=== PATIENT | male | born 1950 | race Caucasian/White ===

== ENCOUNTER → 2020-07-09 12:56 | Outpatient (REF) | payer MEDICARE, OTHER, SELFPAY ==
--- NOTE | 2020-07-09 13:05 | CA_ITS ---
Transthoracic Echocardiogram Patient (Last, First, Middle): Abner Solorio, Gender: Male Date of : 1950 Age: 69 Procedure Date: 07/09/2020 Procedure Type: Transthoracic Echocardiogram Location: OP Height: 180.34 cm Weight: 83.92 kg BSA: 2.04 m2 Heart Rate: bpm BP: 126 / 58 mmHg Radio Station Manager: Referring MD: Keith Contreras MD Symptoms: ATRIAL FLUTTER, PAROXYSMAL Study Quality: Good ECG Rhythm: Sinus Conclusions: - The left ventricular systolic function is normal. The visually estimated ejection fraction is between 60-65%. - There is mild calcification of the aortic valve. - There is mild aortic valve regurgitation. Findings Left Ventricle Normal left ventricular cavity size. There is mildly increased left ventricular wall thickness. The left ventricular systolic function is normal. The visually estimated ejection fraction is between 60-65%. There is no evidence of regional wall motion abnormalities. Diastolic function is normal for age. Right Ventricle Normal right ventricular cavity size and systolic function. Atria The left atrium is normal in size. The right atrium is normal in size. Aortic Valve There is mild calcification of the aortic valve. There is no aortic valve stenosis. There is mild aortic valve regurgitation. Mitral Valve The mitral valve appears normal. There is trace mitral valve regurgitation. There is no mitral valve stenosis. Pulmonic Valve The pulmonic valve was not well visualized. Tricuspid Valve Normal tricuspid valve structure. There is trace tricuspid valve regurgitation. The pulmonary artery systolic pressure is normal. Great Vessels The aortic annulus, sinuses of valsalva, and asc aorta are normal in size. Venous The inferior vena cava is normal in size and collapses greater than 50% with inspiration. Pericardium/Pleural There is no evidence of pericardial effusion. Prior Study Comparison No significant change compared to prior study dated: 02/21/2019. Measurements 2D Linear Measurements IVSd: 1.28 0.6-0.9/0.6-1.0 cm LVIDd: 4.96 3.9-5.3/4.2-5.9 cm LVIDd Index: 2.43 2.4-3.2/2.2-3.1 cm/m2 LVIDs: 3.31 2.0-3.6 cm LVPWd: 1.21 0.7-1.1 cm Ao Root: 3.70 2.1-3.5 cm LA Diam: 4.30 2.7-3.8/3.0-4.0 cm LAIDs Index: 2.11 1.5-2.3 cm/m2 LV Mass: 303.13 67-162/88-224 g LV Mass Index: 148.59 43-95/49-115 g/m2 LVOT Diam: 2.30 3.0+(-)1.3 cm Mitral Valve MV Pk E: 0.69 MV PK A: 0.87 MV Decel Time: 253.00 E/A: 0.80 E'Lateral: 7.45 E'Medial: 7.45 E/E' Med: 9.30 E/E' Lat: 9.30 PHT: 74.00 MVA PHT: 2.97 Decel Calloway: 2.74 Aortic Valve AoV Pk Vahe: 1.50 AoV Mn Vahe: 1.08 AoV VTI: 0.36 AoV Pk Grad: 9.00 Aov Mn Grad: 5.00 LISA Cont.VTI: 2.62 LVOT LVOT Pk Vahe: 0.96 LVOT Mn Vahe: 0.57 LVOT VTI: 0.23 LVOT Pk Grad: 4.00 LVOT Mn Grad: 2.00 LVOT Diam: 2.30 LVOT Area: 4.15 Diastolic Function MV Pk E: 0.69 MV Pk A: 0.87 E/A: 0.80 E'Medial: 7.45 E/E' Med: 9.30 E' Laterial: 7.45 E/E' Lat: 9.30 Tricuspid Valve TR Pk Vahe: 1.82 TR Pk Grad: 13.00 RA Press: 3.00 RVSP: 16.00 Great Vessels Aorta Ao Root-2D: 3.70 2.0-3.7 cm Pulmonary Valve PV Pk Vahe: 0.98 Peak PV Grad: 4.00 Updated in Other Vendor System with Status of Final Keith Contreras MD electronically signed on 07/10/2020 11:35:00 AM with status of Final
--- NOTE | 2020-07-09 13:06 | ECG_ITS ---
Hook-up date: 2020-07-09 13:57:00 Duration: 41:13:00 Test Indications: AFLUTTER Medications: 21168 QRS complexes 133 Ventricular ectopics which represent <1 % of total QRS comp. 20 Supraventricular ectopics which represent <1 % of total QRS comp. * Paced QRS complexs which represent % of total QRS comp. VENTRICULAR ECTOPY 133 Isolated 0 Bigeminal Cycles 0 Couplets 0 Runs 0 Beats in Runs * Beats LONGEST at * BPM at :: -- * Beats FASTEST at * BPM at :: -- SUPRAVENTRICULAR ECTOPY 20 Isolated 0 Couplets 0 Runs 0 Beats in Runs * Beats LONGEST at * BPM at :: -- * Beats FASTEST at * BPM at :: -- HEART RATES 48 MIN at 02:32:57 2020-07-10 61 AVG 120 MAX at 10:54:32 2020-07-10 LONGEST RR 1.3520 secs at 02:29:26 2020-07-10 S-T LEVELS Channel 1 - 128 mm at 13:57:00 2020-07-09 - 128 mm at 13:57:00 2020-07-09 Channel 2 - 128 mm at 13:57:00 2020-07-09 - 128 mm at 13:57:00 2020-07-09 Channel 3 - 128 mm at 03:31:61 -- - 128 mm at 03:31:61 Underlying rhythm is sinus; Average ventricular rate 61/min; range 48-120/min; Rare PACs/PVCs; No evidence of atrial flutter; Patient did not report any symptoms in the diary Referred By: Thomas Ibrahim Overread By: THOMAS IBRAHIM
== END ==
LOC: HO.CARD 12:56
PROVIDERS: PCP Internal Medicine; Visit Provider Internal Medicine
DX: I48.92 Unspecified atrial flutter (principal); Z98.890 Other specified postprocedural states
CPT/HCPCS: 93225; 93226; 93306

== ENCOUNTER 2020-07-25 07:53 | Outpatient (REF) | payer MEDICARE, OTHER, SELFPAY ==
[2020-07-25 09:03] LABS: MANUAL DIFF FLAG NO
[2020-07-25 09:08] LABS: Basophils Absolute Auto 0.1 X10*3/uL (0.0-0.2); Basophils Percent Auto 0.8 % (0-2); Eosinophils Absolute Auto 0.2 X10*3/uL (0.0-0.4); Eosinophils Percent Auto 2.6 % (0-4); Hemoglobin 15.8 g/dl (14.0-18.0); Imm Gran Abs Auto 0.01 X10*3/uL (0.00-0.03); Imm Gran Pct Auto 0.2 % (0.0-0.4); Lymphocytes Absolute Auto 1.7 X10*3/uL (1.2-4.9); Lymphocytes Percent Auto 27.8 % (20-40); Mean Corpuscular HGB Conc 34.3 g/dl (31.0-36.0); Mean Corpuscular Hemoglobin 31.9 pg (27.0-33.0); Mean Corpuscular Volume 92.9 fL (80-98); Mean Platelet Volume 9.2 fL (9.4-12.4); Monocytes Absolute Auto 0.6 X10*3/uL (0.1-1.2); Monocytes Percent Auto 8.8 % (2-11); Neutrophils Absolute Auto 3.7 X10*3/uL (2.0-8.3); Neutrophils Percent Auto 59.8 % (45-73); Platelet Count 150 X10*3/uL (160-400); Red Blood Count 4.95 X10*6/uL (4.60-5.80); Red Cell Distribution Width 12.1 % (11.0-16.0); White Blood Count 6.2 X10*3/uL (4.8-10.8)
[2020-07-25 09:36] LABS: Alanine Aminotransferase 22 U/L (0-40); Albumin Level 4.2 g/dL (3.5-5.0); Alkaline Phosphatase 53 U/L (39-117); Anion Gap 12 (12-20); Aspartate Amino Transferase 20 U/L (5-37); Bilirubin Total 1.1 mg/dL (0.0-1.0); Blood Urea Nitrogen 16 mg/dL (9-16); Carbon Dioxide 27 mmol/L (22-29); Chloride 101 mmol/L (96-108); Cholesterol 131 mg/dL; Estimated Glomerular Filt Rate > 60; Glucose Fasting 131 mg/dL (60-99); HDL Cholesterol 42 mg/dL; LDL Cholesterol Calculated 74 mg/dl; Potassium 4.3 mmol/l (3.3-5.1); Sodium 136 mmol/L (135-145); Total Protein 6.6 g/dL (6.5-8.0); Triglycerides 78 mg/dL
[2020-07-25 09:49] LABS: PSA,Total (Free>4and<10) 0.26 ng/mL (0.00-4.00)
[2020-07-25 09:51] LABS: T4 Thyroxine 7.2 ug/dL (4.5-12.0); Thyroid Stimulating Hormone 6.72 uIU/mL (0.32-4.0)
[2020-07-25 11:02] LABS: Folate 13.7 ng/mL (> or = 4.0); Vitamin B12 456 pg/mL (200-900)
[2020-07-25 11:31] LABS: Creatinine Urine 53.68 mg/dL; Microalbum/Creatinine Ratio Ur 150.8 ug/mg cr
== END 2020-07-25 07:54 | disposition home or self-care (01) ==
LOC: HO.LAB 07:53
PROVIDERS: PCP Internal Medicine; Visit Provider Internal Medicine
DX: E11.9 Type 2 diabetes mellitus without complications (principal); I10 Essential (primary) hypertension; E78.00 Pure hypercholesterolemia, unspecified; E03.9 Hypothyroidism, unspecified; I48.91 Unspecified atrial fibrillation; G47.33 Obstructive sleep apnea (adult) (pediatric)
CPT/HCPCS: 36415; 80053; 80061; 82043; 82607; 82746; 84153; 84436; 84443; 85025

== ENCOUNTER → 2020-08-09 09:34 | Outpatient (BNVA) | payer MEDICARE, OTHER, SELFPAY | PROVIDERS: PCP Internal Medicine; Referring Provider Internal Medicine; Visit Provider Internal Medicine | DX: I48.92 Unspecified atrial flutter (principal); I10 Essential (primary) hypertension; E11.8 Type 2 diabetes mellitus with unspecified complications; E78.5 Hyperlipidemia, unspecified; Z51.81 Encounter for therapeutic drug level monitoring; Z79.01 Long term (current) use of anticoagulants; Z79.899 Other long term (current) drug therapy | CPT/HCPCS: 99212; Q3014 ==

== ENCOUNTER 2020-12-19 07:28 | Outpatient (REF) | payer MEDICARE, OTHER, SELFPAY ==
[2020-12-19 08:39] LABS: Estimated Average Glucose 131 mg/dL; Hemoglobin A1c % 6.2 %
[2020-12-19 09:01] LABS: Alanine Aminotransferase 21 U/L (0-40); Albumin Level 4.2 g/dL (3.5-5.0); Alkaline Phosphatase 51 U/L (39-117); Anion Gap 14 (12-20); Aspartate Amino Transferase 20 U/L (5-37); Bilirubin Total 0.8 mg/dL (0.0-1.0); Blood Urea Nitrogen 18 mg/dL (9-16); Calcium 9.1 mg/dL (8.4-10.2); Carbon Dioxide 26 mmol/L (22-29); Chloride 104 mmol/L (96-108); Estimated Glomerular Filt Rate > 60; Glucose Random 134 mg/dL (60-115); Potassium 4.5 mmol/L (3.3-5.1); Sodium 139 mmol/L (135-145); Total Protein 6.4 g/dL (6.5-8.0)
[2020-12-19 09:12] LABS: Free T4 (Free Thyroxine) 1.26 ng/dL (0.71-1.85)
== END 2020-12-19 07:29 | disposition home or self-care (01) ==
LOC: HO.LAB 07:28
PROVIDERS: PCP Internal Medicine; Visit Provider Internal Medicine
DX: E11.65 Type 2 diabetes mellitus with hyperglycemia (principal); I10 Essential (primary) hypertension; E03.9 Hypothyroidism, unspecified
CPT/HCPCS: 36415; 80053; 83036; 84439; 84443

== ENCOUNTER → 2021-02-12 08:38 | Outpatient (BNVA) | payer MEDICARE, OTHER, SELFPAY | PROVIDERS: PCP Internal Medicine; Visit Provider Internal Medicine | DX: I48.92 Unspecified atrial flutter (principal); I10 Essential (primary) hypertension; E11.8 Type 2 diabetes mellitus with unspecified complications; Z51.81 Encounter for therapeutic drug level monitoring; Z79.899 Other long term (current) drug therapy; Z79.01 Long term (current) use of anticoagulants | CPT/HCPCS: 93005; 99212 ==

== ENCOUNTER 2021-07-31 07:28 | Outpatient (REF) | payer MEDICARE, OTHER, SELFPAY ==
[2021-07-31 07:40] LABS: MANUAL DIFF FLAG NO
[2021-07-31 08:02] LABS: Basophils Absolute Auto 0.1 X10*3/uL (0.0-0.2); Eosinophils Absolute Auto 0.1 X10*3/uL (0.0-0.4); Eosinophils Percent Auto 1.9 % (0-4); Hematocrit 45.1 % (42.0-52.0); Hemoglobin 15.7 g/dl (14.0-18.0); Imm Gran Abs Auto 0.01 X10*3/uL (0.00-0.03); Imm Gran Pct Auto 0.2 % (0.0-0.4); Lymphocytes Absolute Auto 1.9 X10*3/uL (1.2-4.9); Lymphocytes Percent Auto 30.5 % (20-40); Mean Corpuscular HGB Conc 34.8 g/dl (31.0-36.0); Mean Corpuscular Hemoglobin 32.6 pg (27.0-33.0); Mean Corpuscular Volume 93.6 fL (80.0-98.0); Mean Platelet Volume 8.8 fL (9.4-12.4); Monocytes Absolute Auto 0.7 X10*3/uL (0.1-1.2); Monocytes Percent Auto 10.9 % (2-11); Neutrophils Absolute Auto 3.5 x10*3/uL (2.0-8.3); Neutrophils Percent Auto 55.5 % (45-73); Platelet Count 155 X10*3/uL (160-400); Red Blood Count 4.82 X10*6/uL (4.60-5.80); Red Cell Distribution Width 12.3 % (11.0-16.0); White Blood Count 6.3 X10*3/uL (4.8-10.8)
[2021-07-31 08:14] LABS: Estimated Average Glucose 128 mg/dL; Hemoglobin A1c % 6.1 %
[2021-07-31 08:31] LABS: Alanine Aminotransferase 17 U/L (0-40); Albumin Level 4.2 g/dL (3.5-5.0); Alkaline Phosphatase 52 U/L (39-117); Anion Gap 9 (12-20); Aspartate Amino Transferase 17 U/L (5-37); Bilirubin Total 0.9 mg/dL (0.0-1.0); Blood Urea Nitrogen 16 mg/dL (9-16); Calcium 9.6 mg/dL (8.4-10.2); Carbon Dioxide 29 mmol/L (22-29); Chloride 105 mmol/L (96-108); Cholesterol 127 mg/dL; Estimated Glomerular Filt Rate > 60; Glucose Random 135 mg/dL (60-115); HDL Cholesterol 43 mg/dL; LDL Cholesterol Calculated 70 mg/dl; Potassium 4.3 mmol/L (3.3-5.1); Sodium 139 mmol/L (135-145); Total Protein 6.6 g/dL (6.5-8.0); Triglycerides 72 mg/dL
[2021-07-31 08:48] LABS: Free T4 (Free Thyroxine) 1.16 ng/dL (0.71-1.85); Thyroid Stimulating Hormone 5.49 uIU/mL (0.32-4.0)
[2021-07-31 08:59] LABS: Creatinine Urine 58.98 mg/dL; Microalbum/Creatinine Ratio Ur 110.2 ug/mg cr
[2021-07-31 08:59] LABS: Folate 17.2 ng/mL (> or = 4.0); Vitamin B12 402 pg/mL (200-900)
== END 2021-07-31 07:29 | disposition home or self-care (01) ==
LOC: HO.LAB 07:28
PROVIDERS: PCP Internal Medicine; Visit Provider Internal Medicine
DX: E11.65 Type 2 diabetes mellitus with hyperglycemia (principal); E78.00 Pure hypercholesterolemia, unspecified; I48.92 Unspecified atrial flutter; I10 Essential (primary) hypertension; Z79.899 Other long term (current) drug therapy; Z79.84 Long term (current) use of oral hypoglycemic drugs; Z51.81 Encounter for therapeutic drug level monitoring
CPT/HCPCS: 36415; 80053; 80061; 82043; 82607; 82746; 83036; 84439; 84443; 85025; 93005; 99212

== ENCOUNTER 2022-01-22 07:05 | Outpatient (REF) | payer MEDICARE, OTHER, SELFPAY ==
[2022-01-22 08:58] LABS: Free T4 (Free Thyroxine) 1.27 ng/dL (0.71-1.85); Thyroid Stimulating Hormone 2.18 uIU/mL (0.32-4.0)
[2022-01-22 09:07] LABS: Creatinine Urine 72.33 mg/dL
== END 2022-01-22 07:06 | disposition home or self-care (01) ==
LOC: HO.LAB 07:05
PROVIDERS: PCP Internal Medicine; Visit Provider Internal Medicine
DX: E03.9 Hypothyroidism, unspecified (principal); E11.65 Type 2 diabetes mellitus with hyperglycemia
CPT/HCPCS: 36415; 84439; 84443

== ENCOUNTER → 2022-02-03 08:49 | Outpatient (BNVA) | payer MEDICARE, OTHER, SELFPAY | PROVIDERS: PCP Internal Medicine; Referring Provider Internal Medicine; Visit Provider Internal Medicine | DX: I48.92 Unspecified atrial flutter (principal); I10 Essential (primary) hypertension; E11.8 Type 2 diabetes mellitus with unspecified complications; Z51.81 Encounter for therapeutic drug level monitoring; Z79.899 Other long term (current) drug therapy | CPT/HCPCS: 93005; 99212 ==

== ENCOUNTER 2022-02-19 14:50 | Outpatient (REF) | payer MEDICARE, OTHER, SELFPAY ==
[2022-02-19 15:15] LABS: MANUAL DIFF FLAG NO
[2022-02-19 15:33] LABS: Basophils Percent Auto 0.3 % (0-2); Eosinophils Absolute Auto 0.1 X10*3/uL (0.0-0.4); Eosinophils Percent Auto 2.2 % (0-4); Hematocrit 39.2 % (42.0-52.0); Imm Gran Abs Auto 0.02 X10*3/uL (0.00-0.03); Imm Gran Pct Auto 0.3 % (0.0-0.4); Lymphocytes Absolute Auto 1.8 X10*3/uL (1.2-4.9); Mean Corpuscular HGB Conc 35.7 g/dl (31.0-36.0); Mean Corpuscular Hemoglobin 32.6 pg (27.0-33.0); Mean Corpuscular Volume 91.2 fL (80.0-98.0); Monocytes Absolute Auto 0.6 X10*3/uL (0.1-1.2); Monocytes Percent Auto 9.6 % (2-11); Neutrophils Absolute Auto 3.7 x10*3/uL (2.0-8.3); Neutrophils Percent Auto 59.6 % (45-73); Platelet Count 171 X10*3/uL (160-400); Red Cell Distribution Width 12.4 % (11.0-16.0); White Blood Count 6.2 X10*3/uL (4.8-10.8)
[2022-02-19 15:59] LABS: Alanine Aminotransferase 19 U/L (0-40); Albumin Level 4.1 g/dL (3.5-5.0); Alkaline Phosphatase 50 U/L (39-117); Anion Gap 13 (12-20); Aspartate Amino Transferase 19 U/L (5-37); Bilirubin Total 0.7 mg/dL (0.0-1.0); Blood Urea Nitrogen 17 mg/dL (9-16); Calcium 9.2 mg/dL (8.4-10.2); Carbon Dioxide 24 mmol/L (22-29); Chloride 102 mmol/L (96-108); Estimated Glomerular Filt Rate > 60; Glucose Random 116 mg/dL (60-115); Potassium 4.4 mmol/L (3.3-5.1); Sodium 135 mmol/L (135-145); Total Protein 6.4 g/dL (6.5-8.0)
[2022-02-19 16:21] LABS: Free T4 (Free Thyroxine) 1.13 ng/dL (0.71-1.85); Thyroid Stimulating Hormone 2.56 uIU/mL (0.32-4.0)
== END 2022-02-19 14:51 | disposition home or self-care (01) ==
LOC: HO.LAB 14:50
PROVIDERS: PCP Internal Medicine; Visit Provider Internal Medicine
DX: I48.92 Unspecified atrial flutter (principal); E11.65 Type 2 diabetes mellitus with hyperglycemia; E78.00 Pure hypercholesterolemia, unspecified; I10 Essential (primary) hypertension
CPT/HCPCS: 36415; 80053; 84439; 84443; 85025

== ENCOUNTER 2022-07-31 07:29 | Outpatient (REF) | payer MEDICARE, OTHER, SELFPAY ==
[2022-07-31 07:42] LABS: MANUAL DIFF FLAG NO
[2022-07-31 07:57] LABS: Basophils Absolute Auto 0.1 X10*3/uL (0.0-0.2); Basophils Percent Auto 0.9 % (0-2); Eosinophils Absolute Auto 0.2 X10*3/uL (0.0-0.4); Eosinophils Percent Auto 3.3 % (0-4); Hemoglobin 16.1 g/dl (14.0-18.0); Imm Gran Abs Auto 0.01 X10*3/uL (0.00-0.03); Imm Gran Pct Auto 0.2 % (0.0-0.4); Lymphocytes Absolute Auto 2.2 X10*3/uL (1.2-4.9); Lymphocytes Percent Auto 32.4 % (20-40); Mean Corpuscular Hemoglobin 31.9 pg (27.0-33.0); Mean Corpuscular Volume 91.3 fL (80.0-98.0); Monocytes Absolute Auto 0.7 X10*3/uL (0.1-1.2); Monocytes Percent Auto 11.2 % (2-11); Neutrophils Absolute Auto 3.5 x10*3/uL (2.0-8.3); Platelet Count 158 X10*3/uL (160-400); Red Blood Count 5.04 X10*6/uL (4.60-5.80); Red Cell Distribution Width 12.1 % (11.0-16.0); White Blood Count 6.6 X10*3/uL (4.8-10.8)
[2022-07-31 08:18] LABS: Estimated Average Glucose 128 mg/dL; Hemoglobin A1c % 6.1 %
[2022-07-31 08:25] LABS: B Type Natriuretic Peptide 77 pg/mL (<100)
[2022-07-31 08:42] LABS: Alanine Aminotransferase 22 U/L (0-40); Albumin Level 4.3 g/dL (3.5-5.0); Alkaline Phosphatase 49 U/L (39-117); Anion Gap 12 (12-20); Aspartate Amino Transferase 18 U/L (5-37); Bilirubin Total 0.8 mg/dL (0.0-1.0); Blood Urea Nitrogen 17 mg/dL (9-16); Calcium 9.6 mg/dL (8.4-10.2); Carbon Dioxide 27 mmol/L (22-29); Chloride 104 mmol/L (96-108); Cholesterol 118 mg/dL; Estimated Glomerular Filt Rate > 60; Free T4 (Free Thyroxine) 1.26 ng/dL (0.71-1.85); Glucose Random 134 mg/dL (60-115); HDL Cholesterol 41 mg/dL; LDL Cholesterol Calculated 65 mg/dl; Potassium 4.9 mmol/L (3.3-5.1); Sodium 138 mmol/L (135-145); Thyroid Stimulating Hormone 5.78 uIU/mL (0.32-4.0); Total Protein 6.7 g/dL (6.5-8.0); Triglycerides 64 mg/dL
[2022-07-31 08:54] LABS: Folate 13.9 ng/mL (> or = 4.0); Vitamin B12 508 pg/mL (200-900)
[2022-07-31 11:43] LABS: Creatinine Urine 47.79 mg/dL; Microalbum/Creatinine Ratio Ur 71.1 ug/mg cr
== END 2022-07-31 07:30 | disposition home or self-care (01) ==
LOC: HO.LAB 07:29
PROVIDERS: PCP Internal Medicine; Visit Provider Internal Medicine
DX: E11.65 Type 2 diabetes mellitus with hyperglycemia (principal); E78.00 Pure hypercholesterolemia, unspecified; I48.92 Unspecified atrial flutter; I10 Essential (primary) hypertension
CPT/HCPCS: 36415; 80053; 80061; 82043; 82607; 82746; 83036; 83880; 84439; 84443; 85025

== ENCOUNTER → 2022-09-04 08:40 | Outpatient (BNVA) | payer MEDICARE, OTHER, SELFPAY | PROVIDERS: PCP Internal Medicine; Referring Provider Internal Medicine; Visit Provider Internal Medicine | DX: I48.92 Unspecified atrial flutter (principal); I10 Essential (primary) hypertension; G47.33 Obstructive sleep apnea (adult) (pediatric); E11.8 Type 2 diabetes mellitus with unspecified complications; Z51.81 Encounter for therapeutic drug level monitoring; Z79.899 Other long term (current) drug therapy | CPT/HCPCS: 93005; 99212 ==

== ENCOUNTER 2023-03-02 09:16 | Outpatient (AMB) | payer MEDICARE, OTHER, SELFPAY ==
--- NOTE | 2023-03-02 09:18 | MHC.OFFVIS ---
Intake Vital Signs 03/02/23 10:05 Height 5 ft 11 in Weight 190 lb 0.615 oz BMI 26.5 BP 136/62 Blood Pressure Location Lt brachial Position Sitting Pulse 56 Intake Visit Reasons: 6M follow up Intake Note: 6 month follow up w/ EKG Iap Displays Analyst Required: No Accompanied by: Self / Same As Patient Allergies No Known Allergies [No Known Allergies*] Allergy (Verified 03/02/23 10:04) Medication List - Last Reconciled 03/02/23 by Keith Contreras MD amlodipine 10 mg PO .PM apixaban (Eliquis) 5 mg PO BID 90 days atorvastatin 40 mg PO DAILY blood sugar diagnostic (FreeStyle Lite Strips) As directed check the BID cyanocobalamin (vitamin B-12) 1,000 mcg PO DAILY flecainide 50 mg PO Q12H levothyroxine (Synthroid) 100 mcg PO DAILY lisinopril 40 mg PO DAILY metformin 500 mg PO TID 90 days metoprolol succinate ER 50 mg PO DAILY HPI HPI Comments History of Present Illness Details Abner returns for follow-up regarding atrial flutter. In the past, he underwent cardioversion for symptomatic atrial flutter. Currently on beta-blockers/flecainide. Also on Eliquis. He is fairly active with no limitations. He states he was recently in [place] and walked a lot with no issues. No angina or shortness of breath or in fact anything cardiac sounding. Overall, doing well. [facility] Medical History (Updated 10/13/22 @ 16:11 by Soraya Escudero MD) Diabetic nephropathy History of cardioversion (~02/2019) Hypercholesterolemia Hypertension Hypothyroid group home current use of antiarrhythmic drug group home current use of anticoagulant Obstructive sleep apnea Paroxysmal atrial flutter Retinal artery occlusion Thrombocytopenia Type 2 diabetes mellitus with hyperglycemia Surgical History History of facial surgery History of hernia surgery History of shoulder surgery No pertinent past surgical history Social History Housing: House Alcohol intake: current Alcohol intake frequency: a few times a month Patient Tobacco Use Status: Never used Tobacco e-Cigarette/Vaping Use: Never Used Second Hand Smoke Exposure: No service: No Current occupational status: retired Cognitive needs: No Hearing needs: No Vision needs: Yes Review of Systems Const Denies weakness ENT Denies dizziness Card Denies chest pain, Denies chest pain with activity, Denies syncope, Denies rapid heart rate, Denies pedal edema, Denies edema, Denies leg edema, Denies lightheadedness, Denies palpitations, Denies dyspnea, Denies dyspnea on exertion and Denies orthopnea Resp Denies cough, Denies dyspnea and Denies dyspnea on exertion GI Denies hematochezia and Denies change in stool character Musc Denies abnormal gait, Denies muscle cramps, Denies muscle weakness, Denies numbness, Denies radiating pain into limb and Denies tingling Neuro Denies abnormal gait, Denies dizziness, Denies syncope, Denies numbness, Denies tingling and Denies weakness Endo Denies palpitations Physical Exam Vital Signs: Last Vital Signs Pulse 56 03/02/23 10:05 BP 136/62 03/02/23 10:05 BMI result Body Mass Index 26.5 Const General: comfortable and no acute distress Orientation/consciousness: patient oriented x3 HEENT Other: Unremarkable Head: Yes normal to inspection Neck Neck: Yes normal visual inspection Chest Chest palpation & inspection: normal inspection of the chest Resp Auscultation: clear to auscultation bilaterally Cardio Palpation: normal PMI Heart sounds: S1 normal heart sound present, S2 normal heart sound present, no gallops, no murmurs and no rubs GI Palpation (GI): Soft to palpation Back/Spine/Pelvis Other: unremarkable Skin General skin exam: no rashes or lesions noted Neuro General: patient oriented x3 Extrem General: Yes normal to inspection Psych Mental Status: mental status grossly normal Office Procedures EKG Details: EKG with sinus bradycardia at 56/Min; no significant ST-T changes and otherwise unremarkable[place] [id number], Complete Assessment & Plan Assessment & Plan (1) Paroxysmal atrial flutter: Code(s): I48.92 - Unspecified atrial flutter Plan: Continue flecainide and beta-blockers. Continue anticoagulation. Cardiac testing- Echocardiogram with LVEF of 60-65% and mild aortic valve calcification with mild aortic valve calcification/regurgitation. Myocardial perfusion imaging study with likely normal perfusion. We can repeat echocardiogram with next visit. (2) Encounter for monitoring anti-arrhythmic therapy: Code(s): Z51.81 - Encounter for therapeutic drug level monitoring; Z79.899 - Other usp (current) drug therapy Plan: He has been stable on flecainide. Hence may continue without changes. (3) Essential hypertension: Code(s): I10 - Essential (primary) hypertension Plan: Continue lisinopril, amlodipine. Last potassium 4.9. Last creatinine is 1.06. (4) Type 2 diabetes mellitus with unspecified complications: Code(s): E11.8 - Type 2 diabetes mellitus with unspecified complications Plan: On metformin. Last Hemoglobin A1c 6.1%. Seems controlled. (5) Obstructive sleep apnea: Code(s): G47.33 - Obstructive sleep apnea (adult) (pediatric) Plan: On CPAP. Orders: Orders CA echo transthoracic complete 6 Months I48.92 - Unspecified atrial flutter Coding Level of Care Code Est Pt Level 4 (13777) Diagnoses Paroxysmal atrial flutter I48.92 Encounter for monitoring anti-arrhythmic therapy Z51.81; Z79.899 Essential hypertension I10 Type 2 diabetes mellitus with unspecified complications E11.8 Obstructive sleep apnea G47.33 CPT Codes EKG - CPT: 43729-[id number], Complete ([id number])
[2023-03-02 10:05] VITALS: BP 136/62; PULSE 56; BMI 26.5
== END 2023-03-02 10:15 | disposition home or self-care (01) ==
PROVIDERS: Visit Provider Internal Medicine
DX: I48.92 Unspecified atrial flutter (principal); Z51.81 Encounter for therapeutic drug level monitoring; Z79.899 Other long term (current) drug therapy; I10 Essential (primary) hypertension; E11.8 Type 2 diabetes mellitus with unspecified complications; G47.33 Obstructive sleep apnea (adult) (pediatric)
CPT/HCPCS: 93010; 99214

== ENCOUNTER → 2023-03-02 09:16 | Outpatient (BNVA) | payer MEDICARE, OTHER, SELFPAY | PROVIDERS: Visit Provider Internal Medicine | DX: I48.92 Unspecified atrial flutter (principal); I10 Essential (primary) hypertension | CPT/HCPCS: 93005 ==

== ENCOUNTER 2023-04-23 08:29 | Outpatient (AMB) | payer MEDICARE, OTHER, SELFPAY ==
[2023-04-23 08:40] VITALS: BP 138/70; PULSE 53; O2SAT 97; BMI 26.5
--- NOTE | 2023-04-23 08:40 | MHC.PC.OV ---
Vital Signs 04/23/23 08:40 Height 5 ft 11 in Weight 190 lb BMI 26.5 BP 138/70 Blood Pressure Location Lt brachial Position Sitting Pulse 53 Pulse Source Pulse Oximeter Pulse Oximetry (%) 97 Oxygen Delivery Method Room Air Intake Visit Reasons: 4m F/U DM Allergies No Known Allergies [No Known Allergies*] Allergy (Verified 04/23/23 08:41) Tobacco use date assessed: 10/13/22 Fall risk assessment: No Falls in past year Last assessed Fall Risk: 04/23/23 Dental Screening Dental Screen Date: 04/23/23 Did you have a dental visit in the last 12 months?: Yes Did you have a dental problem in the last 6 months where you did not have access to dental care?: No Was dental information given to patient?: Patient has dentist HPI 4m F/U DM HPI Details 72-year-old overweight male with controlled diabetes mellitus hypertension hypercholesterolemia obstructive sleep apnea hypothyroidism and atrial flutter/fibrillation last seen in September 2022. Colonoscopy is up-to-date patient is here for follow-up. Eye exam note February 2023. Patient has also followed up with Cardiology on flecainide and beta blockers as well as anticoagulation last echocardiogram 60-65% of ejection fraction myocardial perfusion imaging likely normal perfusion. July blood work noted TSH elevation and was advised to repeat thyroid test but this was not done. [facility] Medical History (Updated 04/23/23 @ 08:46 by Soraya Escudero MD) COVID-19 virus infection Diabetic nephropathy Encounter for monitoring anti-arrhythmic therapy History of cardioversion (~02/2019) Hypercholesterolemia Hypertension Hypothyroid Impacted cerumen of both ears alf current use of antiarrhythmic drug alf current use of anticoagulant Medicare annual wellness visit, initial Obstructive sleep apnea Paroxysmal atrial flutter Retinal artery occlusion Thrombocytopenia Type 2 diabetes mellitus with hyperglycemia Type 2 diabetes mellitus with unspecified complications Surgical History History of facial surgery History of hernia surgery History of shoulder surgery No pertinent past surgical history Social History Housing: House Alcohol intake: current Alcohol intake frequency: a few times a month Patient Tobacco Use Status: Never used Tobacco e-Cigarette/Vaping Use: Never Used Second Hand Smoke Exposure: No service: No Current occupational status: retired Cognitive needs: No Hearing needs: No Vision needs: Yes Questionnaire PHQ-9 Over the last 2 weeks, how often have you been bothered by any of the following problems? 1. Little interest or pleasure in doing things: not at all 2. Feeling down, depressed, or hopeless: not at all 3. Trouble falling or staying asleep, or sleeping too much: not at all 4. Feeling tired or having little energy: not at all 5. Poor appetite or overeating: not at all 6. Feeling bad about yourself - or that you are a failure or have let yourself or your family down: not at all 7. Trouble concentrating on things, such as reading the newspaper or watching television: not at all 8. Moving or speaking so slowly that other people could have noticed. Or the opposite - being so fidgety or restless that you have been moving around a lot more than usual: not at all 9. Thoughts that you would be better off or of hurting yourself in some way: not at all Total score: 0 Depression Screening Interpretation: Negative Source: Developed by Drs. Marcus Anand, Lawrence Haley and colleagues, with an educational shelly from [employer]. Thrive Questionnaire Date Thrive assessed: 10/13/22 AUDIT C Alcohol Use Questionnaire (AUDIT-C) 1. How often do you have a drink containing alcohol?: 2-3 times a week 2. How many drinks containing alcohol do you have on a typical day when you are drinking?: 3 or 4 3. How often do you have six or more drinks on one occasion?: Never Total Score: 4 DAINA-7 AMB Questionnaire DAINA-7 Date DAINA - 7 assessed: 10/13/22 Source: Developed by Drs. Marcus Anand, Lawrence Haley and colleagues, with an educational shelly from [employer]. Physical exam (Primary Care) Vital Signs: Last Vital Signs Pulse 53 04/23/23 08:40 BP 138/70 04/23/23 08:40 Pulse Ox 97 04/23/23 08:40 Oxygen Delivery Method Room Air 04/23/23 08:40 BMI result Body Mass Index 26.5 Tobacco/Smoking Status: Tobacco use Status Tobacco use date assessed 10/13/22 04/23/23 08:41 Patient Tobacco Use Status Never used Tobacco 04/23/23 08:41 e-Cigarette/Vaping Use Never Used 04/23/23 08:41 PHQ-9: PHQ-9 Score PHQ-9: Total score 0 04/23/23 08:48 Depression Screening Interpretation: Negative Thrive Assessment: Date of Thrive Assessment Date Thrive assessed 10/13/22 04/23/23 08:41 Const General: alert; No acute distress Eyes Conjunctivae: conjunctivae normal Resp Auscultation: clear to auscultation bilaterally Cardio Rate: regular rate Rhythm: regular rhythm GI Inspection: Yes normal to inspection Extrem General: Yes normal to inspection and No edema Results AMB Hemoglobin A1c AMB Hemoglobin A1c 6.2 % Last Edit by Bertha Young CMA on 04/23/23 08:54 Assessment and Plan Assessment & Plan (1) Type 2 diabetes mellitus, controlled: Code(s): E11.9 - Type 2 diabetes mellitus without complications Plan: Decrease the amount of carbohydrate intake, pasta, bread, rice and potatoes are all sugar and that is aside from all the sweet stuff, remember that fruits are good but they are Sweet also. Hemoglobin A1c goal of less than 7.0 patient is taking metformin 500 mg 3 times a day (2) Essential hypertension: Code(s): I10 - Essential (primary) hypertension Plan: Continue with blood pressure medication. Decrease salt intake and exercise patient is on metoprolol succinate 50 mg once a day lisinopril 40 mg once a day amlodipine 10 mg once a day (3) Paroxysmal atrial flutter: Code(s): I48.92 - Unspecified atrial flutter Plan: Continue with anticoagulation on flecainide and continuing with metoprolol succinate 50 mg once a day (4) Hypothyroid: Code(s): E03.9 - Hypothyroidism, unspecified Qualifiers: Hypothyroidism type: acquired Qualified Code(s): E03.9 - Hypothyroidism, unspecified Plan: Continue with thyroid medication advised retesting due to elevated tsh (5) Obstructive sleep apnea: Code(s): G47.33 - Obstructive sleep apnea (adult) (pediatric) Plan: Continue with CPAP more than 4 hours a night and benefits from the (6) Hypercholesterolemia: Code(s): E78.00 - Pure hypercholesterolemia, unspecified Plan: Avoid fried foods, chicken skin, eggs, butter margarine, pastries and meat. Be it pork or beef they have a lot of cholesterol LDL goal of less than 100 and triglyceride of less than 150 patient is on atorvastatin 40 mg once a day Orders: Orders Vitamin B12 and Folate Today E11.9 - Type 2 diabetes mellitus without complications Comprehensive Met. Panel Today E11.9 - Type 2 diabetes mellitus without complications Lipid Panel Today E11.9 - Type 2 diabetes mellitus without complications, E78.00 - Pure hypercholesterolemia, unspecified Free T4 (Free Thyroxine) Today E11.9 - Type 2 diabetes mellitus without complications Thyroid Stimulating Hormone Today E11.9 - Type 2 diabetes mellitus without complications Complete Blood Count Auto Diff Today E11.9 - Type 2 diabetes mellitus without complications AMB Hemoglobin A1c Today Z13.9 - Encounter for screening, unspecified Coding Level of Care Code Est Pt Level 4 (25304) Diagnoses Type 2 diabetes mellitus, controlled E11.9 Essential hypertension I10 Paroxysmal atrial flutter I48.92 Hypothyroid E03.9 Hypothyroidism type: acquired Obstructive sleep apnea G47.33 Hypercholesterolemia E78.00
== END 2023-04-23 09:04 | disposition home or self-care (01) ==
PROVIDERS: PCP Internal Medicine; Visit Provider Internal Medicine
DX: E11.9 Type 2 diabetes mellitus without complications (principal); I10 Essential (primary) hypertension; I48.92 Unspecified atrial flutter; E03.9 Hypothyroidism, unspecified; G47.33 Obstructive sleep apnea (adult) (pediatric); E78.00 Pure hypercholesterolemia, unspecified
CPT/HCPCS: 83036; 99214

== ENCOUNTER 2023-07-09 11:29 | Outpatient (REF) | payer MEDICARE, OTHER, SELFPAY ==
[2023-07-09 11:44] LABS: MANUAL DIFF FLAG NO
[2023-07-09 12:25] LABS: Basophils Absolute Auto 0.1 X10*3/uL (0.0-0.2); Basophils Percent Auto 0.7 % (0-2); Eosinophils Absolute Auto 0.1 X10*3/uL (0.0-0.4); Eosinophils Percent Auto 1.6 % (0-4); Hematocrit 43.6 % (42.0-52.0); Hemoglobin 15.5 g/dl (14.0-18.0); Imm Gran Abs Auto 0.02 X10*3/uL (0.00-0.03); Imm Gran Pct Auto 0.3 % (0.0-0.4); Lymphocytes Absolute Auto 1.8 X10*3/uL (1.2-4.9); Lymphocytes Percent Auto 25.6 % (20-40); Mean Corpuscular HGB Conc 35.6 g/dl (31.0-36.0); Mean Corpuscular Hemoglobin 32.9 pg (27.0-33.0); Mean Corpuscular Volume 92.6 fL (80.0-98.0); Mean Platelet Volume 9.3 fL (9.4-12.4); Monocytes Absolute Auto 0.9 X10*3/uL (0.1-1.2); Monocytes Percent Auto 12.9 % (2-11); Neutrophils Absolute Auto 4.2 x10*3/uL (2.0-8.3); Neutrophils Percent Auto 58.9 % (45-73); Platelet Count 140 X10*3/uL (160-400); Red Blood Count 4.71 X10*6/uL (4.60-5.80); Red Cell Distribution Width 11.9 % (11.0-16.0); White Blood Count 7.1 X10*3/uL (4.8-10.8)
[2023-07-09 13:08] LABS: Alanine Aminotransferase 16 U/L (0-40); Albumin Level 4.3 g/dL (3.5-5.0); Alkaline Phosphatase 49 U/L (39-117); Anion Gap 11 (12-20); Aspartate Amino Transferase 17 U/L (5-37); Bilirubin Total 0.9 mg/dL (0.0-1.0); Blood Urea Nitrogen 16 mg/dL (9-16); Calcium 9.8 mg/dL (8.4-10.2); Carbon Dioxide 28 mmol/L (22-29); Chloride 97 mmol/L (96-108); Cholesterol 116 mg/dL (<200); Estimated Glomerular Filt Rate > 60; Glucose Random 147 mg/dL (60-115); HDL Cholesterol 42 mg/dL (>40); LDL Cholesterol Calculated 58 mg/dL (<100); Potassium 4.9 mmol/L (3.3-5.1); Sodium 131 mmol/L (135-145); Total Protein 6.8 g/dL (6.5-8.0); Triglycerides 81 mg/dL (<150)
[2023-07-09 13:24] LABS: Free T4 (Free Thyroxine) 1.07 ng/dL (0.71-1.85); Thyroid Stimulating Hormone 4.24 uIU/mL (0.32-4.0)
[2023-07-09 13:33] LABS: Folate 8.7 ng/mL (> or = 4.0); Vitamin B12 396 pg/mL (200-900)
== END 2023-07-09 11:30 | disposition home or self-care (01) ==
LOC: HO.LAB 11:29
PROVIDERS: PCP Internal Medicine; Visit Provider Internal Medicine
DX: E03.9 Hypothyroidism, unspecified (principal); E11.9 Type 2 diabetes mellitus without complications; E78.00 Pure hypercholesterolemia, unspecified
CPT/HCPCS: 36415; 80053; 80061; 82607; 82746; 84439; 84443; 85025

== ENCOUNTER → 2023-08-13 08:58 | Outpatient (REF) | payer MEDICARE, OTHER, SELFPAY ==
--- NOTE | 2023-08-13 09:01 | CA_ITS ---
Transthoracic Echocardiogram Patient (Last, First, Middle): Abner Solorio, Gender: Male Date of : 1950 Age: 72 Procedure Date: 08/13/2023 Procedure Type: Transthoracic Echocardiogram Location: OP Height: 180.34 cm Weight: 83.92 kg BSA: 2.04 m2 Heart Rate: 54 bpm BP: 142 / 60 mmHg Assistant Art Director: CHRIS Montes De Oca MD: Keith Contreras MD Chute Loader: Devyn Willis MD Symptoms: I48.92 - Unspecified atrial flutter Study Quality: Fair/w Contrast ECG Rhythm: Sinus Bradycardia Conclusions: - 1. Normal LV ejection fraction 60-65% with impaired relaxation filling pattern 2. Mild aortic stenosis 3. Upper limits of normal ascending aortic size 4. No gross pericardial effusion Findings Procedure Information Contrast agent, definity, is being given per protocol with complications as noted. Left Ventricle Normal left ventricular size, thickness, and systolic function. The visually estimated ejection fraction is between 60-65%. Spectral Doppler is indicative of an impaired relaxation filling pattern. E/E prime ratio is between 8 and 15 consistent with indeterminate filling pressures. Right Ventricle Normal right ventricular cavity size and systolic function. Atria The left atrium is likely dilated. There is no evidence of interatrial shunt. The right atrium is normal in size. Aortic Valve There is mild calcification of the aortic valve. There is mild thickening of the aortic valve. There is mild aortic valve stenosis. There is no aortic valve regurgitation. Mitral Valve There is mild anterior and moderate posterior mitral leaflet thickening. There is mild mitral annular calcification. There is trace mitral valve regurgitation. There is no mitral valve stenosis. Pulmonic Valve The pulmonic valve is likely normal. Tricuspid Valve Normal tricuspid valve structure. Tricuspid regurgitation envelope is inadequate for calculation of right ventricular systolic pressure. Normal right atrial pressure. Great Vessels The pulmonary artery was not well visualized. Venous The inferior vena cava is normal in size and collapses greater than 50% with inspiration. Pericardium/Pleural There is no evidence of pericardial effusion. Measurements 2D Linear Measurements IVSd: 0.93 0.6-0.9/0.6-1.0 cm LVIDd: 4.98 3.9-5.3/4.2-5.9 cm LVIDd Index: 2.44 2.4-3.2/2.2-3.1 cm/m2 LVIDs: 3.27 2.0-3.6 cm LVPWd: 1.20 0.7-1.1 cm LA Diam: 4.00 2.7-3.8/3.0-4.0 cm LAIDs Index: 1.96 1.5-2.3 cm/m2 LV Mass: 245.20 67-162/88-224 g LV Mass Index: 120.20 43-95/49-115 g/m2 LVOT Diam: 2.30 3.0+(-)1.3 cm 2D Systolic Function EF 4C: 59.00 >55% EF 2C: 58.60 >55% EF BiP: 59.40 >55% Mitral Valve MV Pk E: 0.86 MV PK A: 1.06 MV Decel Time: 285.00 E/A: 0.80 E'Lateral: 6.92 E'Medial: 7.10 E/E' Med: 12.10 E/E' Lat: 12.40 PHT: 84.00 MVA PHT: 2.62 Decel [place]: 3.02 Aortic Valve AoV Pk Vahe: 2.23 AoV Mn Vahe: 1.60 AoV VTI: 0.60 AoV Pk Grad: 20.00 Aov Mn Grad: 12.00 LISA Cont.VTI: 1.80 AI Pk Vahe: 3.39 AI [place]: 1.77 LVOT LVOT Pk Vahe: 1.03 LVOT Mn Vahe: 0.68 LVOT VTI: 0.26 LVOT Pk Grad: 4.00 LVOT Mn Grad: 2.00 LVOT Diam: 2.30 LVOT Area: 4.15 Diastolic Function MV Pk E: 0.86 MV Pk A: 1.06 E/A: 0.80 E'Medial: 7.10 E/E' Med: 12.10 E' Laterial: 6.92 E/E' Lat: 12.40 Right Ventricle TAPSE (mm): 29.10 TVS' Vahe: 13.30 Tricuspid Valve RA Press: 8.00 Great Vessels Aorta Sinus of Valsalva: 3.70 2.0-3.5 cm Ao Asc: 3.60 2.1-3.4 cm Pulmonary Valve PV Pk Vahe: 0.76 Peak PV Grad: 2.00 Updated in Other Vendor System with Status of Final Devyn Willis MD electronically signed on 08/14/2023 9:27:36 AM with status of Final
== END ==
LOC: HO.CARD 08:58
PROVIDERS: PCP Internal Medicine; Visit Provider Internal Medicine
DX: I48.92 Unspecified atrial flutter (principal)
CPT/HCPCS: 93306; Q9957

== ENCOUNTER → 2023-08-13 09:01 | Outpatient (BNV) | payer MEDICARE, OTHER, SELFPAY | PROVIDERS: PCP Internal Medicine; Visit Provider Internal Medicine Cardiovascular Disease | DX: I48.92 Unspecified atrial flutter (principal) | CPT/HCPCS: 93306 ==

== ENCOUNTER 2023-08-31 09:04 | Outpatient (AMB) | payer MEDICARE, OTHER, SELFPAY ==
[2023-08-31 09:06] VITALS: BP 124/62; PULSE 56; BMI 27.1
--- NOTE | 2023-08-31 09:06 | MHC.OFFVIS ---
Intake Vital Signs 08/31/23 09:06 Height 5 ft 11 in Weight 194 lb 7.163 oz BMI 27.1 BP 124/62 Blood Pressure Location Lt brachial Position Sitting Pulse 56 Pulse Source Monitor Intake Visit Reasons: 6 month follow up Allergies No Known Allergies [No Known Allergies*] Allergy (Verified 04/23/23 08:41) Medication List - Last Reconciled 08/31/23 by Keith Contreras MD amlodipine 10 mg PO .PM apixaban (Eliquis) 5 mg PO BID atorvastatin 40 mg PO DAILY blood sugar diagnostic (FreeStyle Lite Strips) As directed check the BID cyanocobalamin (vitamin B-12) 1,000 mcg PO DAILY flecainide 50 mg PO Q12H levothyroxine (Synthroid) 100 mcg PO DAILY lisinopril 40 mg PO DAILY metformin 500 mg PO TID 90 days metoprolol succinate ER 50 mg PO DAILY HPI HPI Comments History of Present Illness Details Abner returns for follow-up regarding atrial flutter. In the past, he underwent cardioversion for symptomatic atrial flutter. Currently on beta-blockers/flecainide. Also on Eliquis. He is extremely active at baseline including activities like cutting wood extra and has had no symptoms like chest pains or shortness of breath or in fact anything cardiac sounding. 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 current use of anticoagulant halfway current use of antiarrhythmic drug Type 2 diabetes mellitus with unspecified complications History of cardioversion (~02/2019) Paroxysmal atrial flutter Retinal artery occlusion Thrombocytopenia Diabetic nephropathy Hypothyroid Obstructive sleep apnea Hypercholesterolemia Hypertension Type 2 diabetes mellitus with hyperglycemia Surgical History History of facial surgery History of shoulder surgery History of hernia surgery No pertinent past surgical history Social History Housing: House Alcohol intake: current Alcohol intake frequency: a few times a month Patient Tobacco Use Status: Never used Tobacco e-Cigarette/Vaping Use: Never Used Second Hand Smoke Exposure: No service: No Current occupational status: retired Cognitive needs: No Hearing needs: No Vision needs: Yes Review of Systems ENT Reports dizziness Card Denies chest pain, Denies chest pain at rest, Denies chest pain with activity, Denies rapid heart rate, Denies pedal edema, Denies edema, Denies leg edema, Denies lightheadedness, Denies palpitations, Denies dyspnea, Denies dyspnea on exertion and Denies orthopnea Resp Denies cough, Denies dyspnea and Denies dyspnea on exertion GI Denies hematochezia and Denies change in stool character Musc Denies abnormal gait, Reports limited range of motion, Reports muscle cramps, Denies muscle weakness, Denies numbness, Denies radiating pain into limb, Denies stiffness and Denies tingling Neuro Denies abnormal gait, Reports dizziness, Denies numbness and Denies tingling Endo Denies palpitations Physical Exam Vital Signs: Last Vital Signs Pulse 56 08/31/23 09:06 BP 124/62 08/31/23 09:06 BMI result Body Mass Index 27.1 Const General: comfortable and no acute distress Orientation/consciousness: patient oriented x3 HEENT Other: Unremarkable Head: Yes normal to inspection Neck Neck: Yes normal visual inspection Chest Chest palpation & inspection: normal inspection of the chest Resp Auscultation: clear to auscultation bilaterally Cardio Palpation: normal PMI Heart sounds: S1 normal heart sound present, S2 normal heart sound present, no gallops, Murmur heart sound present systolic II/ and at the right sternal border and no rubs GI Palpation (GI): Soft to palpation Back/Spine/Pelvis Other: unremarkable Skin General skin exam: no rashes or lesions noted Neuro General: patient oriented x3 Extrem General: Yes normal to inspection Psych Mental Status: mental status grossly normal Office Procedures EKG Details: EKG with sinus bradycardia at 56/Min; no significant ST-T changes and otherwise [place]remarkable[place] [id number], Complete Assessment & Plan Assessment & Plan (1) Paroxysmal atrial flutter: Code(s): I48.92 - Unspecified atrial flutter Plan: Continue flecainide and beta-blockers. Continue anticoagulation. Patient and also asked about Watchman device. We discussed about the same in detail. He has no bleeding concerns or issues with anticoagulation. Hence prefer that he just continues Eliquis. Cardiac testing- Echocardiogram with LVEF of 60-65%. Myocardial perfusion imaging study with likely normal perfusion. (2) Encounter for monitoring anti-arrhythmic therapy: Code(s): Z51.81 - Encounter for therapeutic drug level monitoring; Z79.899 - Other assisted (current) drug therapy Plan: Stable on flecainide for many years. No specific concerns. (3) Nonrheumatic aortic (valve) stenosis: Code(s): I35.0 - Nonrheumatic aortic (valve) stenosis Plan: Mild aortic stenosis on the echocardiogram. Findings discussed with patient and significant other. We can monitor periodically. (4) Essential hypertension: Code(s): I10 - Essential (primary) hypertension Plan: Continue lisinopril, amlodipine. (5) Type 2 diabetes mellitus with unspecified complications: Code(s): E11.8 - Type 2 diabetes mellitus with unspecified complications Plan: On metformin. Last Hemoglobin A1c 6.1%. Seems controlled. (6) Obstructive sleep apnea: Code(s): G47.33 - Obstructive sleep apnea (adult) (pediatric) Plan: On CPAP. Coding Level of Care Code Est Pt Level 4 (06348) Diagnoses Paroxysmal atrial flutter I48.92 Encounter for monitoring anti-arrhythmic therapy Z51.81; Z79.899 Nonrheumatic aortic (valve) stenosis I35.0 Essential hypertension I10 Type 2 diabetes mellitus with unspecified complications E11.8 Obstructive sleep apnea G47.33 CPT Codes EKG - CPT: 97188-[id number], Complete ([id number])
== END 2023-08-31 09:40 | disposition home or self-care (01) ==
PROVIDERS: PCP Internal Medicine; Visit Provider Internal Medicine
DX: I48.92 Unspecified atrial flutter (principal); Z51.81 Encounter for therapeutic drug level monitoring; Z79.899 Other long term (current) drug therapy; I35.0 Nonrheumatic aortic (valve) stenosis; I10 Essential (primary) hypertension; E11.8 Type 2 diabetes mellitus with unspecified complications; G47.33 Obstructive sleep apnea (adult) (pediatric)
CPT/HCPCS: 93010; 99214

== ENCOUNTER → 2023-08-31 09:04 | Outpatient (BNVA) | payer MEDICARE, OTHER, SELFPAY | PROVIDERS: PCP Internal Medicine; Visit Provider Internal Medicine | DX: I48.92 Unspecified atrial flutter (principal); I35.0 Nonrheumatic aortic (valve) stenosis; I10 Essential (primary) hypertension; E11.8 Type 2 diabetes mellitus with unspecified complications; G47.33 Obstructive sleep apnea (adult) (pediatric); Z79.01 Long term (current) use of anticoagulants; Z79.899 Other long term (current) drug therapy; Z99.89 Dependence on other enabling machines and devices | CPT/HCPCS: 93005; 99212 ==

== ENCOUNTER 2023-10-20 07:29 | Outpatient (REF) | payer MEDICARE, OTHER, SELFPAY ==
[2023-10-20 09:12] LABS: Free T4 (Free Thyroxine) 1.05 ng/dL (0.71-1.85); Thyroid Stimulating Hormone 4.31 uIU/mL (0.32-4.0)
== END 2023-10-20 07:30 | disposition home or self-care (01) ==
LOC: HO.LAB 07:29
PROVIDERS: PCP Internal Medicine; Visit Provider Internal Medicine
DX: E11.9 Type 2 diabetes mellitus without complications (principal); E03.9 Hypothyroidism, unspecified
CPT/HCPCS: 36415; 84439; 84443

== ENCOUNTER 2023-10-23 08:26 | Outpatient (AMB) | payer MEDICARE, OTHER, SELFPAY ==
[2023-10-23 08:40] VITALS: BP 136/64; PULSE 48; O2SAT 99; BMI 26.8
--- NOTE | 2023-10-23 08:40 | A.OFFPC_ITS ---
Vital Signs 10/23/23 08:40 Height 5 ft 11 in Weight 192 lb 0.6 oz BMI 26.8 BP 136/64 Blood Pressure Location Lt brachial Position Sitting Pulse 48 L Pulse Source Pulse Oximeter Pulse Oximetry (%) 99 Oxygen Delivery Method Room Air Intake Visit Reasons: DM Environmental Auditor Required: No Allergies No Known Allergies [No Known Allergies*] Allergy (Verified 10/23/23 08:41) Tobacco use date assessed: 10/23/23 Fall risk assessment: No Falls in past year Last assessed Fall Risk: 10/23/23 Dental Screening Dental Screen Date: 10/23/23 HPI DM HPI Details 73-year-old overweight male with control led diabetes mellitus hypertension atrial flutter/fibrillation hypothyroid obstructive sleep apnea hypercholesterolemia last seen in March 2023. Review of the notes had colonoscopy done in 2016 up-to-date. Review of the notes has seen Dr. HOLLIE telles due to Mohs surgery for basal cell carcinoma on the right nasal route. Patient has also seen Cardiology echocardiogram done July 2023:. Normal LV ejection fraction 60-65% with impaired relaxation filling pattern 2. Mild aortic stenosis 3. Upper limits of normal ascending aort ic size 4. 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 MOHS surgery Dr. 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 current use of anticoagulant jail current use of antiarrhythmic drug Type 2 diabetes mellitus with unspecified complications History of cardioversion (~02/2019) Paroxysmal atrial flutter Retinal artery occlusion Thrombocytopenia Diabetic nephropathy Hypothyroid Obstructive sleep apnea Hypercholesterolemia Hypertension Type 2 diabetes mellitus with hyperglycemia Surgical History History of facial surgery History of shoulder surgery History of hernia surgery No pertinent past surgical history Social History Housing: House Alcohol intake: current Alcohol intake frequency: a few times a month Patient Tobacco Use Status: Never used Tobacco e-Cigarette/Vaping Use: Never Used Second Hand Smoke Exposure: No service: No Current occupational status: retired Cognitive needs: No Hearing needs: No Vision needs: Yes Questionnaire Thrive Questionnaire Date Thrive assessed: 10/13/22 AUDIT C Alcohol Use Questionnaire (AUDIT-C) 1. How often do you have a drink containing alcohol?: 2-3 times a week 2. How many drinks containing alcohol do you have on a typical day when you are drinking?: 3 or 4 3. How often do you have six or more drinks on one occasion?: Never Total Score: 4 DAINA-7 AMB Questionnaire DAINA-7 Date DAINA - 7 assessed: 10/23/23 Source: Developed by Drs. Marcus Anand, Sapna Mishra, Lawrence Hurley and colleagues, with an educational shelly from [employer]. Physical exam (Primary Care) Vital Signs: Last Vital Signs Pulse 48 L 10/23/23 08:40 BP 136/64 10/23/23 08:40 Pulse Ox 99 10/23/23 08:40 Oxygen Delivery Method Room Air 10/23/23 08:40 BMI result Body Mass Index 26.8 Tobacco/Smoking Status: Tobacco use Status Tobacco use date assessed 10/23/23 10/23/23 08:41 Patient Tobacco Use Status Never used Tobacco 10/23/23 08:41 e-Cigarette/Vaping Use Never Used 10/23/23 08:41 Thrive Assessment: Date of Thrive Assessment Date Thrive assessed 10/13/22 10/23/23 08:41 Const General: alert; No acute distress Eyes Conjunctivae: conjunctivae normal Resp Auscultation: clear to auscultation bilaterally Cardio Rate: regular rate Rhythm: regular rhythm GI Inspection: Yes normal to inspection Extrem General: Yes normal to inspection and No edema Results AMB Hemoglobin A1c AMB Hemoglobin A1c 6.6 % Last Edit by LITO Hendrickson on 10/23/23 09:01 Results Reviewed Results Reviewed: Laboratory Last Values Hgb A1c (Clinic) 6.6 % (4.0-6.0) H 10/23/23 08:45 Assessment and Plan Assessment & Plan (1) Type 2 diabetes mellitus with hyperglycemia: Comment: Dr. Johnson Code(s): E11.65 - Type 2 diabetes mellitus with hyperglycemia Qualifiers: Diabetes mellitus intermediate designer insulin use: without senior care use Qualified Code(s): E11.65 - Type 2 diabetes mellitus with hyperglycemia Plan: Decrease the amount of carbohydrate intake, pasta, bread, rice and potatoes are all sugar and that is aside from all the sweet stuff, remember that fruits are good but they are Sweet also. Hemoglobin A1c goal of less than 7.0. Patient presently on metformin 500 mg 3 times a day (2) Hypercholesterolemia: Code(s): E78.00 - Pure hypercholesterolemia, unspecified Plan: Avoid fried foods, chicken skin, eggs, butter margarine, pastries and meat. Be it pork or beef they have a lot of cholesterol LDL goal of less than 100 and triglyceride of less than 150 presently on atorvastatin 40 mg once a day (3) Hypothyroid: Code(s): E03.9 - Hypothyroidism, unspecified Qualifiers: Hypothyroidism type: acquired Qualified Code(s): E03.9 - Hypothyroidism, unspecified Plan: Continue with thyroid medication (4) Obstructive sleep apnea: Code(s): G47.33 - Obstructive sleep apnea (adult) (pediatric) Plan: Continue with CPAP more than 4 hours a night and benefits from this (5) Paroxysmal atrial flutter: Code(s): I48.92 - Unspecified atrial flutter Plan: Follows up with Cardiology presently on anticoagulation as well as flecainide (6) Essential hypertension: Code(s): I10 - Essential (primary) hypertension Plan: Continue with blood pressure medication. Decrease salt intake and exercise on amlodipine 10 mg once a day lisinopril 40 mg once a day and metoprolol 50 mg once a day (7) Basal cell carcinoma: Comment: Nasal route September 2023 Code(s): C44.91 - Basal cell carcinoma of skin, unspecified Plan: Patient follows up with Dr. Eden and planned Mohs surgery planned December [address] Mensah Orders: Orders Complete Blood Count Auto Diff 6 Months E11.9 - Type 2 diabetes mellitus without complications Free T4 (Free Thyroxine) 6 Months E11.9 - Type 2 diabetes mellitus without complications Thyroid Stimulating Hormone 6 Months E11.9 - Type 2 diabetes mellitus without complications Creatinine Urine 6 Months E11.65 - Type 2 diabetes mellitus with hyperglycemia, E11.9 - Type 2 diabetes mellitus without complications Microalbumin, Random (w Creat) 6 Months E11.65 - Type 2 diabetes mellitus with hyperglycemia, E11.9 - Type 2 diabetes mellitus without complications AMB Hemoglobin A1c Today E11.65 - Type 2 diabetes mellitus with hyperglycemia Comprehensive Met. Panel 6 Months E11.9 - Type 2 diabetes mellitus without complications Lipid Panel 6 Months E11.9 - Type 2 diabetes mellitus without complications, E7 8.00 - Pure hypercholesterolemia, unspecified Vitamin B12 and Folate 6 Months E11.9 - Type 2 diabetes mellitus without complications Hemoglobin A1c 6 Months E11.9 - Type 2 diabetes mellitus without complications Coding Level of Care Code Est Pt Level 4 (03587) Diagnoses Type 2 diabetes mellitus with hyperglycemia, without long-term current use of insulin E11.65 Diabetes mellitus senior care insulin use: without intermediate designer use Hypercholesterolemia E78.00 Acquired hypothyroidism E03.9 Hypothyroidism type: acquired Obstructive sleep apnea G47.33 Paroxysmal atrial flutter I48.92 Essential hypertension I10 Basal cell carcinoma C44.91
== END 2023-10-23 09:26 | disposition home or self-care (01) ==
PROVIDERS: PCP Internal Medicine; Visit Provider Internal Medicine
DX: E11.65 Type 2 diabetes mellitus with hyperglycemia (principal); E78.00 Pure hypercholesterolemia, unspecified; E03.9 Hypothyroidism, unspecified; I48.92 Unspecified atrial flutter; I10 Essential (primary) hypertension; C44.91 Basal cell carcinoma of skin, unspecified
CPT/HCPCS: 83036; 99214

== ENCOUNTER 2023-12-30 13:32 | Outpatient (AMB) | payer MEDICARE, OTHER, SELFPAY ==
[2023-12-30 13:35] VITALS: BP 118/64; PULSE 56; O2SAT 96; BMI 26.4
--- NOTE | 2023-12-30 13:35 | A.OFFPC_ITS ---
Vital Signs 12/30/23 13:35 Height 5 ft 11 in Weight 189 lb 6 oz BMI 26.4 BP 118/64 Blood Pressure Location Lt brachial Position Sitting Pulse 56 Pulse Source Pulse Oximeter Pulse Oximetry (%) 96 Oxygen Delivery Method Room Air Intake Visit Reasons: Eyelid surgery Intake Note: Patient is here for a Pre-op for Mole removal Surgery scheduled with Dr Mensah on 01/21/24. 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 by: Self / Same As Patient Allergies No Known Allergies [No Known Allergies*] Allergy (Verified 12/30/23 13:35) Medication List - Last Reconciled 12/30/23 by Soraya Escudero MD amlodipine 10 mg PO .PM apixaban (Eliquis) 5 mg PO BID atorvastatin 40 mg PO DAILY blood sugar diagnostic (FreeStyle Lite Strips) As directed check the BID cyanocobalamin (vitamin B-12) 1,000 mcg PO DAILY cyanocobalamin (vitamin B-12) 1,000 mcg PO DAILY flecainide 50 mg PO Q12H levothyroxine (Synthroid) 100 mcg PO DAILY lisinopril 40 mg PO DAILY metformin 500 mg PO TID 90 days metoprolol succinate ER 50 mg PO DAILY Tobacco use date assessed: 12/30/23 Fall risk assessment: No Falls in past year Last assessed Fall Risk: 12/30/23 Dental Screening Dental Screen Date: 10/23/23 HPI Eyelid surgery HPI Details 73-year-old male with controlled diabete s mellitus hypertension hypercholesterolemia hypothyroidism obstructive sleep apnea coming in for preoperative evaluation for eyelid surgery.. Dr. 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 current use of antiarrhythmic drug Type 2 diabetes mellitus with unspecified complications History of cardioversion (~02/2019) Paroxysmal atrial flutter Retinal artery occlusion Thrombocytopenia Diabetic nephropathy Hypothyroid Obstructive sleep apnea Hypercholesterolemia Hypertension Type 2 diabetes mellitus with hyperglycemia Surgical History History of facial surgery History of shoulder surgery History of hernia surgery No pertinent past surgical history Social History (Updated 12/30/23 @ 14:06 by Soraya Escudero MD) Housing: House Alcohol intake: current Alcohol intake frequency: a few times a month Comment: 2-3 x a week 2 elizabeth Patient Tobacco Use Status: Never used Tobacco e-Cigarette/Vaping Use: Never Used Second Hand Smoke Exposure: No service: No Current occupational status: retired Cognitive needs: No Hearing needs: No Vision needs: Yes Questionnaire PHQ-9 Over the last 2 weeks, how often have you been bothered by any of the following problems? 1. Little interest or pleasure in doing things: not at all 2. Feeling down, depressed, or hopeless: not at all 3. Trouble falling or staying asleep, or sleeping too much: not at all 4. Feeling tired or having little energy: not at all 5. Poor appetite or overeating: not at all 6. Feeling bad about yourself - or that you are a failure or have let yourself or your family down: not at all 7. Trouble concentrating on things, such as reading the newspaper or watching television: not at all 8. Moving or speaking so slowly that other people could have noticed. Or the opposite - being so fidgety or restless that you have been moving around a lot more than usual: not at all 9. Thoughts that you would be better off or of hurting yourself in some way: not at all Total score: 0 Depression Screening Interpretation: Negative Depression Screening Done: Yes Source: Developed by Drs. Marcus Anand, Sapna Mishra, Lawrence Hurley and colleagues, with an educational shelly from [employer]. Thrive Questionnaire Date Thrive assessed: 12/30/23 I am a: Patient What is your living situation today?: I have a steady place to live Within the past 12 months, did the food you bought not last and you didn't have the money to get more?: Never true Within the past 12 months, did you worry whether your food would run out before you got money to buy more?: Never true Do you have trouble paying for medicines?: No Do you have trouble getting transportation to medical appointments?: No Do you have trouble paying your heating and electricity bill?: No Do you have trouble taking care of your child, family member or friend?: No Do you have trouble with day-to-day activities such as bathing, preparing meals, shopping, managing finances, etc.?: No Are you currently unemployed and looking for a job?: No Are you interested in more education?: No Currently or been in a relationship where the following occur: no concerns reported THRIVE Score: 0 AUDIT C Alcohol Use Questionnaire (AUDIT-C) 1. How often do you have a drink containing alcohol?: 2-3 times a week 2. How many drinks containing alcohol do you have on a typical day when you are drinking?: 1 or 2 Total Score: 3 DAINA-7 AMB Questionnaire DAINA-7 Date DAINA - 7 assessed: 10/23/23 Source: Developed by Drs. Marcus Anand, Sapna Mishra, Lawrence Hurley and colleagues, with an educational shelly from [employer]. Review of Systems Const Denies poor appetite and Denies weakness Eyes Denies no additional complaints ENT Reports Normal hearing present, Denies dizziness, Denies nasal congestion, Denies tinnitus and Denies sore throat Card Denies chest pain, Denies syncope, Denies rapid heart rate and Denies dyspnea Resp Denies cough and Denies dyspnea GI Denies change in stool character, Reports constipation, Denies diarrhea, Denies nausea and Denies vomiting Denies dysuria and Denies urinary frequency Neuro Reports Normal hearing present, Denies confusion, Denies dizziness, Denies syncope and Denies weakness Psych Denies confusion Physical exam (Primary Care) Vital Signs: Last Vital Signs Pulse 56 12/30/23 13:35 BP 118/64 12/30/23 13:35 Pulse Ox 96 12/30/23 13:35 Oxygen Delivery Method Room Air 12/30/23 13:35 BMI result Body Mass Index 26.4 Tobacco/Smoking Status: Tobacco use Status Tobacco use date assessed 12/30/23 12/30/23 13:44 Patient Tobacco Use Status Never used Tobacco 12/30/23 14:06 e-Cigarette/Vaping Use Never Used 12/30/23 14:06 PHQ-9: PHQ-9 Score PHQ-9: Total score 0 12/30/23 14:00 Depression Screening Interpretation: Negative Thrive Assessment: Date of Thrive Assessment Date Thrive assessed 12/30/23 12/30/23 13:37 Currently or been in a relationship where the following occur: no concerns reported Const General: No confusion Orientation/consciousness: No confusion Eyes Conjunctivae: conjunctivae normal Resp Auscultation: clear to auscultation bilaterally Cardio Rate: regular rate Rhythm: regular rhythm GI Inspection: Yes normal to inspection Neuro General: No confusion Cranial nerves: Yes Normal hearing present Extrem General: Yes normal to inspection and No edema Assessment and Plan Assessment & Plan (1) Preop exam for internal medicine: Code(s): Z01.818 - Encounter for other preprocedural examination Plan: EKG and blood work requested. With the age and diabetes mellitus patient belongs to the intermediate risk group. EKG and blood work evaluated. No further workup needed at this time and may proceed with the contemplated procedure. Patient was advised to hold anticoagulation 2 days before the procedure and make sure to take the blood pressure medication amlodipine 10 mg once a day flecainide 50 mg every 12 hours, lisinopril 40 mg once a day and metoprolol succinate 50 mg once a day on the day of the surgery. Thank you very much for letting me participate the care of this patient. (2) Type 2 diabetes mellitus, controlled: Code(s): E11.9 - Type 2 diabetes mellitus without complications Plan: Decrease the amount of carbohydrate intake, pasta, bread, rice and potatoes are all sugar and that is aside from all the sweet stuff, remember that fruits are good but they are Sweet also. Hemoglobin A1c goal of less than 7.0 presently on metformin 500 mg 3 times a day. (3) Paroxysmal atrial flutter: Code(s): I48.92 - Unspecified atrial flutter Plan: Presently on apixaban/Eliquis 5 mg twice a day advised to hold the anticoagulant 2 days before the procedure. Patient on flecainide (4) Hypothyroid: Code(s): E03.9 - Hypothyroidism, unspecified Qualifiers: Hypothyroidism type: acquired Qualified Code(s): E03.9 - Hypothyroidism, unspecified Plan: Continue with thyroid medication (5) Obstructive sleep apnea: Code(s): G47.33 - Obstructive sleep apnea (adult) (pediatric) Plan: Continue with CPAP more than 4 hours a night and benefits from this (6) Hypercholesterolemia: Code(s): E78.00 - Pure hypercholesterolemia, unspecified Plan: Avoid fried foods, chicken skin, eggs, butter margarine, pastries and meat. Be it pork or beef they have a lot of cholesterol on atorvastatin 40 mg once a day (7) Basal cell carcinoma: Comment: Nasal route September 2023 Code(s): C44.91 - Basal cell carcinoma of skin, unspecified Plan: Surgery December 2023 (8) Essential hypertension: Code(s): I10 - Essential (primary) hypertension Plan: Continue with blood pressure medication. Decrease salt intake and exercise presently on amlodipine 10 mg once a day lisinopril 40 mg once a day and metoprolol 50 mg once a day (9) Nonrheumatic aortic (valve) stenosis: Comment: 31 July 2023 mild Code(s): I35.0 - Nonrheumatic aortic (valve) stenosis Orders: Orders ECG 12 lead EKG Today Z01.818 - Encounter for other preprocedural examination Basic Metabolic Panel Today Z01.818 - Encounter for other preprocedural examination Complete Blood Count Auto Diff Today Z01.818 - Encounter for other preprocedural examination Coding Level of Care Code Est Pt Level 4 (37633) Diagnoses Preop exam for internal medicine Z01.818 Type 2 diabetes mellitus, controlled E11.9 Paroxysmal atrial flutter I48.92 Acquired hypothyroidism E03.9 Hypothyroidism type: acquired Obstructive sleep apnea G47.33 Hypercholesterolemia E78.00 Basal cell carcinoma C44.91 Essential hypertension I10 Nonrheumatic aortic (valve) stenosis I35.0
== END 2023-12-30 16:01 | disposition home or self-care (01) ==
PROVIDERS: PCP Internal Medicine; Visit Provider Internal Medicine
DX: Z01.818 Encounter for other preprocedural examination (principal); E11.9 Type 2 diabetes mellitus without complications; I48.92 Unspecified atrial flutter; E03.9 Hypothyroidism, unspecified; G47.33 Obstructive sleep apnea (adult) (pediatric); E78.00 Pure hypercholesterolemia, unspecified; C44.91 Basal cell carcinoma of skin, unspecified; I10 Essential (primary) hypertension; I35.0 Nonrheumatic aortic (valve) stenosis
CPT/HCPCS: 99214

== ENCOUNTER 2023-12-30 14:19 | Outpatient (REF) | payer MEDICARE, OTHER, SELFPAY ==
--- NOTE | 2023-12-30 14:23 | ECG_ITS ---
Test Reason : preop Blood Pressure : / mmHG Vent. Rate : 059 BPM Atrial Rate : 059 BPM P-R Int : 204 ms QRS Dur : 106 ms QT Int : 450 ms P-R-T Axes : 066 057 039 degrees QTc Int : 445 ms Sinus bradycardia Possible Left atrial enlargement Borderline ECG When compared with ECG of 18-MAR-2019 11:27, No significant change was found Referred By: Soraya Escudero Electronically Signed By:Kody Lin
[2023-12-30 14:34] LABS: MANUAL DIFF FLAG NO
[2023-12-30 15:44] LABS: Basophils Absolute Auto 0.1 X10*3/uL (0.0-0.2); Basophils Percent Auto 0.7 % (0-2); Eosinophils Absolute Auto 0.2 X10*3/uL (0.0-0.4); Eosinophils Percent Auto 2.2 % (0-4); Hematocrit 41.1 % (42.0-52.0); Hemoglobin 14.7 g/dl (14.0-18.0); Imm Gran Abs Auto 0.02 X10*3/uL (0.00-0.03); Imm Gran Pct Auto 0.2 % (0.0-0.4); Lymphocytes Absolute Auto 2.2 X10*3/uL (1.2-4.9); Lymphocytes Percent Auto 26.8 % (20-40); Mean Corpuscular HGB Conc 35.8 g/dl (31.0-36.0); Mean Corpuscular Hemoglobin 33.2 pg (27.0-33.0); Mean Corpuscular Volume 92.8 fL (80.0-98.0); Mean Platelet Volume 9.2 fL (9.4-12.4); Monocytes Absolute Auto 1.1 X10*3/uL (0.1-1.2); Monocytes Percent Auto 13.5 % (2-11); Neutrophils Absolute Auto 4.6 x10*3/uL (2.0-8.3); Neutrophils Percent Auto 56.6 % (45-73); Platelet Count 160 X10*3/uL (160-400); Red Blood Count 4.43 X10*6/uL (4.60-5.80); Red Cell Distribution Width 12.3 % (11.0-16.0); White Blood Count 8.1 X10*3/uL (4.8-10.8)
[2023-12-30 16:13] LABS: Anion Gap 16 (12-20); Blood Urea Nitrogen 21 mg/dL (9-16); Calcium 9.7 mg/dL (8.4-10.2); Carbon Dioxide 22 mmol/L (22-29); Chloride 103 mmol/L (96-108); Estimated Glomerular Filt Rate > 60; Glucose Random 121 mg/dL (60-115); Potassium 4.1 mmol/L (3.3-5.1); Sodium 137 mmol/L (135-145)
== END 2023-12-30 14:20 | disposition home or self-care (01) ==
LOC: HO.LAB 14:19
PROVIDERS: PCP Internal Medicine; Visit Provider Internal Medicine
DX: Z01.818 Encounter for other preprocedural examination (principal)
CPT/HCPCS: 36415; 80048; 85025; 93005

== ENCOUNTER → 2023-12-30 14:23 | Outpatient (BNV) | payer MEDICARE, OTHER, SELFPAY | PROVIDERS: PCP Internal Medicine; Visit Provider Internal Medicine Cardiovascular Disease | DX: R00.1 Bradycardia, unspecified (principal) | CPT/HCPCS: 93010 ==

== ENCOUNTER 2024-02-29 08:54 | Outpatient (AMB) | payer MEDICARE, OTHER, SELFPAY ==
[2024-02-29 08:55] VITALS: BP 128/62; PULSE 61; BMI 26.4
--- NOTE | 2024-02-29 08:55 | A.OFFVIS_ITS ---
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 by: Self / Same As Patient Allergies No Known Allergies [No Known Allergies*] Allergy (Verified 12/30/23 13:35) Medication List - Last Reconciled 02/29/24 by Keith Contreras MD amlodipine 10 mg PO .PM apixaban (Eliquis) 5 mg PO BID atorvastatin 40 mg PO DAILY blood sugar diagnostic (FreeStyle Lite Strips) As directed check the BID cyanocobalamin (vitamin B-12) 1,000 mcg PO DAILY flecainide 50 mg PO Q12H levothyroxine (Synthroid) 100 mcg PO DAILY lisinopril 40 mg PO DAILY metformin 500 mg PO TID 90 days metoprolol succinate ER 50 mg PO DAILY HPI Comments Details: Abner returns for follow-up regarding atrial flutter. In the past, he underwent cardioversion for symptomatic atrial flutter. Currently on beta- blockers/flecainide. Also on Eliquis. Overall, he is doing good. No clear-cut cardiac symptoms. 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 of antiarrhythmic drug Type 2 diabetes mellitus with unspecified complications History of cardioversion (~02/2019) Paroxysmal atrial flutter Retinal artery occlusion Thrombocytopenia Diabetic nephropathy Hypothyroid Obstructive sleep apnea Hypercholesterolemia Hypertension Type 2 diabetes mellitus with hyperglycemia Surgical History History of facial surgery History of shoulder surgery History of hernia surgery No pertinent past surgical history Social History (Updated 12/30/23 @ 14:06 by Soraya Escudero MD) Housing: House Alcohol intake: current Alcohol intake frequency: a few times a month Comment: 2-3 x a week 2 beers Patient Tobacco Use Status: Never used Tobacco e-Cigarette/Vaping Use: Never Used Second Hand Smoke Exposure: No service: No Current occupational status: retired Cognitive needs: No Hearing needs: No Vision needs: Yes Review of Systems Const Denies chills, Denies fatigue, Denies fever(s), Denies weight gain and Denies weight loss Card Denies chest pain, Denies leg edema, Denies lightheadedness, Denies palpitations, Denies dyspnea on exertion and Denies orthopnea Resp Denies cough and Denies dyspnea on exertion GI Reports melena, Denies hematochezia and Denies change in stool character Musc Denies muscle weakness and Denies radiating pain into limb Endo Denies fatigue and Denies palpitations Physical Exam Vital Signs: Last Vital Signs Pulse 61 02/29/24 08:55 BP 128/62 02/29/24 08:55 BMI result Body Mass Index 26.4 Const General: comfortable and no acute distress Orientation/consciousness: patient oriented x3 HEENT Other: Unremarkable Head: Yes normal to inspection Neck Neck: Yes normal visual inspection Chest Chest palpation & inspection: normal inspection of the chest Resp Auscultation: clear to auscultation bilaterally Cardio Palpation: normal PMI Heart sounds: S1 normal heart sound present, S2 normal heart sound present, no gallops, Murmur heart sound present systolic III/ and at the right sternal border and no rubs GI Palpation (GI): Soft to palpation Back/Spine/Pelvis Other: unremarkable Skin General skin exam: no rashes or lesions noted Neuro General: patient oriented x3 Extrem General: Yes normal to inspection Psych Mental Status: mental status grossly normal Office Procedures EKG Details: EKG with sinus, 61/min, no significant ST-T changes, normal AK/QTc. Possible left atrial enlargement. [id number], Complete Assessment & Plan Assessment & Plan (1) Paroxysmal atrial flutter: Code(s): I48.92 - Unspecified atrial flutter Category: Medical Plan: Continue flecainide and beta-blockers. Continue anticoagulation. Cardiac testing- Echocardiogram 2022 with LVEF of 60-65%. Myocardial perfusion imaging study 2019 with likely normal perfusion. (2) Encounter for monitoring anti-arrhythmic therapy: Code(s): Z51.81 - Encounter for therapeutic drug level monitoring; Z79.899 - Other superintendent terminal (current) drug therapy Category: Medical Plan: Stable on flecainide for many years. No specific concerns. (3) Nonrheumatic aortic (valve) stenosis: Comment: 31 July 2023 mild Code(s): I35.0 - Nonrheumatic aortic (valve) stenosis Category: Medical Plan: Mild aortic stenosis on the echocardiogram. May recheck before next visit. (4) Essential hypertension: Code(s): I10 - Essential (primary) hypertension Category: Medical Plan: Continue lisinopril, amlodipine. (5) Type 2 diabetes mellitus with unspecified complications: Code(s): E11.8 - Type 2 diabetes mellitus with unspecified complications Category: Medical Plan: On metformin. Last Hemoglobin A1c 6.6%. Seems controlled. (6) Obstructive sleep apnea: Code(s): G47.33 - Obstructive sleep apnea (adult) (pediatric) Category: Medical Plan: On CPAP. Coding Level of Care Code Est Pt Level 4 (27196) Diagnoses Paroxysmal atrial flutter I48.92 Encounter for monitoring anti-arrhythmic therapy Z51.81; Z79.899 Nonrheumatic aortic (valve) stenosis I35.0 Essential hypertension I10 Type 2 diabetes mellitus with unspecified complications E11.8 Obstructive sleep apnea G47.33 CPT Codes EKG - CPT: [id number], Complete ([id number])
== END 2024-02-29 09:22 | disposition home or self-care (01) ==
PROVIDERS: PCP Internal Medicine; Visit Provider Internal Medicine
DX: I48.92 Unspecified atrial flutter (principal); Z51.81 Encounter for therapeutic drug level monitoring; Z79.899 Other long term (current) drug therapy; I35.0 Nonrheumatic aortic (valve) stenosis; I10 Essential (primary) hypertension; E11.8 Type 2 diabetes mellitus with unspecified complications; G47.33 Obstructive sleep apnea (adult) (pediatric)
CPT/HCPCS: 93010; 99214

== ENCOUNTER → 2024-02-29 08:54 | Outpatient (BNVA) | payer MEDICARE, OTHER, SELFPAY | PROVIDERS: PCP Internal Medicine; Visit Provider Internal Medicine | DX: I48.92 Unspecified atrial flutter (principal); I35.0 Nonrheumatic aortic (valve) stenosis; I10 Essential (primary) hypertension; E11.8 Type 2 diabetes mellitus with unspecified complications; G47.33 Obstructive sleep apnea (adult) (pediatric); Z79.01 Long term (current) use of anticoagulants; Z79.84 Long term (current) use of oral hypoglycemic drugs; Z79.899 Other long term (current) drug therapy; Z99.89 Dependence on other enabling machines and devices | CPT/HCPCS: 93005; 99212 ==

== ENCOUNTER 2024-05-24 07:29 | Outpatient (REF) | payer MEDICARE, OTHER, SELFPAY ==
[2024-05-24 07:47] LABS: MANUAL DIFF FLAG NO
[2024-05-24 08:18] LABS: Basophils Absolute Auto 0.1 X10*3/uL (0.0-0.2); Basophils Percent Auto 0.8 % (0-2); Eosinophils Absolute Auto 0.2 X10*3/uL (0.0-0.4); Eosinophils Percent Auto 2.3 % (0-4); Hematocrit 42.2 % (42.0-52.0); Imm Gran Abs Auto 0.03 X10*3/uL (0.00-0.03); Imm Gran Pct Auto 0.5 % (0.0-0.4); Lymphocytes Absolute Auto 1.9 X10*3/uL (1.2-4.9); Lymphocytes Percent Auto 28.7 % (20-40); Mean Corpuscular HGB Conc 35.5 g/dl (31.0-36.0); Mean Corpuscular Hemoglobin 32.7 pg (27.0-33.0); Mean Corpuscular Volume 91.9 fL (80.0-98.0); Mean Platelet Volume 8.8 fL (9.4-12.4); Monocytes Absolute Auto 0.6 X10*3/uL (0.1-1.2); Monocytes Percent Auto 9.9 % (2-11); Neutrophils Absolute Auto 3.8 x10*3/uL (2.0-8.3); Neutrophils Percent Auto 57.8 % (45-73); Platelet Count 229 X10*3/uL (160-400); Red Blood Count 4.59 X10*6/uL (4.60-5.80); White Blood Count 6.5 X10*3/uL (4.8-10.8)
[2024-05-24 08:33] LABS: Estimated Average Glucose 126 mg/dL; Hemoglobin A1C 160.1865 umol/L; Total Hemoglobin (HGBA1C) 3760.7024 umol/L
[2024-05-24 08:59] LABS: Creatinine Urine 70.82 mg/dL; Microalbum/Creatinine Ratio Ur 46.5 ug/mg cr (<30)
[2024-05-24 08:59] LABS: Alanine Aminotransferase 19 U/L (0-40); Albumin Level 4.1 g/dL (3.5-5.0); Alkaline Phosphatase 51 U/L (39-117); Anion Gap 12 (12-20); Aspartate Amino Transferase 21 U/L (5-37); Bilirubin Total 0.9 mg/dL (0.0-1.0); Blood Urea Nitrogen 16 mg/dL (9-16); Calcium 9.5 mg/dL (8.4-10.2); Carbon Dioxide 25 mmol/L (22-29); Chloride 102 mmol/L (96-108); Cholesterol 110 mg/dL (<200); Estimated Glomerular Filt Rate > 60; Glucose Random 137 mg/dL (60-115); HDL Cholesterol 38 mg/dL (>40); LDL Cholesterol Calculated 61 mg/dL (<100); Potassium 4.3 mmol/L (3.3-5.1); Sodium 135 mmol/L (135-145); Total Protein 6.5 g/dL (6.5-8.0); Triglycerides 55 mg/dL (<150)
[2024-05-24 09:20] LABS: Free T4 (Free Thyroxine) 1.12 ng/dL (0.71-1.85); Thyroid Stimulating Hormone 4.18 uIU/mL (0.32-4.0)
[2024-05-24 09:31] LABS: Folate 9.9 ng/mL (> or = 4.0); Vitamin B12 554 pg/mL (200-900)
== END 2024-05-24 07:30 | disposition home or self-care (01) ==
LOC: HO.LAB 07:29
PROVIDERS: PCP Internal Medicine; Visit Provider Internal Medicine
DX: E11.65 Type 2 diabetes mellitus with hyperglycemia (principal); E78.00 Pure hypercholesterolemia, unspecified
CPT/HCPCS: 36415; 80053; 80061; 82043; 82570; 82607; 82746; 83036; 84439; 84443; 85025

== ENCOUNTER 2024-06-01 08:56 | Outpatient (AMB) | payer MEDICARE, OTHER, SELFPAY ==
--- NOTE | 2024-06-01 08:58 | AM.OFFVISMDC ---
Intake Vital Signs 06/01/24 09:00 Height 5 ft 11 in Weight 189 lb BMI 26.4 BP 122/60 Blood Pressure Location Lt brachial Position Sitting Pulse 55 Pulse Source Pulse Oximeter Pulse Oximetry (%) 98 Oxygen Delivery Method Room Air Intake Visit Reasons: AWV Intake Note: Patient is here for an Annual Wellness Visit. Allergies No Known Allergies [No Known Allergies*] Allergy (Verified 06/01/24 09:11) Medication List - Last Reconciled 06/01/24 by Susan Chambers PA-C amlodipine 10 mg PO .PM apixaban (Eliquis) 5 mg PO BID atorvastatin 40 mg PO DAILY blood sugar diagnostic (FreeStyle Lite Strips) As directed check the BID cyanocobalamin (vitamin B-12) 1,000 mcg PO DAILY flecainide 50 mg PO Q12H levothyroxine (Synthroid) 100 mcg PO DAILY lisinopril 40 mg PO DAILY metformin 500 mg PO TID 90 days metoprolol succinate ER 50 mg PO DAILY HPI AWV HPI Details 73-year-old male with past medical history of controlled diabetes mellitus, hypertension, atrial flutter on Eliquis, hypercholesterolemia, hypothyroidism, obstructive sleep apnea at last seen by Dr. Escudero coming in for annual wellness visit.? In review of the notes, patient was seen by Cardiology 02/29/2024 for follow up on atrial flutter continue on current medication regimen. He tells us he had Mohs surgery for basal cell carcinoma and had follow up with plastic surgeon and was discharged from the practice advised to follow up as needed. Colonoscopy was completed in 2017 with follow up in 10 years. He regularly sees eye doctor for history of retinal artery occlusion. He has no acute concerns today. 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 Type 2 diabetes mellitus with unspecified complications History of cardioversion (~02/2019) Paroxysmal atrial flutter Retinal artery occlusion Thrombocytopenia Diabetic nephropathy Hypothyroid Obstructive sleep apnea Hypercholesterolemia Hypertension Type 2 diabetes mellitus with hyperglycemia Surgical History (Updated 06/01/24 @ 09:12 by Susan Chambers PA-C) S/P Mohs surgery for basal cell carcinoma History of facial surgery History of shoulder surgery History of hernia surgery No pertinent past surgical history Social History Housing: House Alcohol intake: current Alcohol intake frequency: a few times a month Comment: 2-3 x a week 2 beers Patient Tobacco Use Status: Never used Tobacco e-Cigarette/Vaping Use: Never Used Second Hand Smoke Exposure: No service: No Current occupational status: retired Cognitive needs: No Hearing needs: No Vision needs: Yes Questionnaire Medicare Wellness Checkup [age] What gender do you identify with?: male During the past 4 weeks, how much have you been bothered by emotional problems such as feeling anxious, depressed, irritable, sad or downhearted, and blue?: not at all During the past 4 weeks, has your physical & emotional health limited your social activities with family, friends, neighbors, or groups?: not at all During the past 4 weeks, how much bodily pain have you generally had?: no pain During the past 4 weeks, was someone available to help you if you needed & wanted help?: yes, as much as I wanted During the past 4 weeks, what was the hardest physical activity you could do for at least 2 minutes?: heavy Can you get to places out of walking distance without help? (For eg., can you travel alone on buses, taxis or drive your car?): Yes Can you go shopping for groceries or clothes without someone's help?: Yes Can you prepare your own meals?: Yes Can you do your housework without help?: Yes Because of any health problems, do you need the help of another person with your personal care needs such as eating, bathing, dressing or getting around the house?: No Can you handle your own money without help?: Yes During the past 4 weeks, how would you rate your health in general?: very good During the past 4 weeks how have things been going for you?: very well; could hardly better Are you having difficulties driving your car?: no Do you always fasten your seat belt when you are in a car?: yes, usually During past 4 weeks, have you been bothered by the following: never: Falling or dizzy when standing up, Sexual problems?, Trouble eating well?, Teeth or denture problems?, Problems using the telephone? and Tiredness or fatigue? Have you fallen 2 or more times in the past year?: No Are you afraid of falling?: No Are you a smoker?: no During the past 4 weeks, how many drinks of wine, beer, or other alcoholic beverages did you have?: 6-9 drinks per week Do you exercise for about 20 minutes 3 or more times a week?: yes, some of the time Have you been given information to help with the following?: no: Hazards in your house that might hurt you? and no: Keeping track of your medications? How often do you have trouble taking medicines the way you have been told to take them?: I always take medicine as prescribed How confident are you that you can control & manage most of your health problems?: very confident What is your race?: White PHQ-9 Over the last 2 weeks, how often have you been bothered by any of the following problems? 1. Little interest or pleasure in doing things: not at all 2. Feeling down, depressed, or hopeless: not at all 3. Trouble falling or staying asleep, or sleeping too much: not at all 4. Feeling tired or having little energy: not at all 5. Poor appetite or overeating: not at all 6. Feeling bad about yourself - or that you are a failure or have let yourself or your family down: not at all 7. Trouble concentrating on things, such as reading the newspaper or watching television: not at all 8. Moving or speaking so slowly that other people could have noticed. Or the opposite - being so fidgety or restless that you have been moving around a lot more than usual: not at all 9. Thoughts that you would be better off or of hurting yourself in some way: not at all Total score: 0 Depression Screening Interpretation: Negative Depression Screening Done: Yes 59968 - PHQ-9 Billing: Yes Source: Developed by Drs. Marcus Anand, Sapna Mishra, Lawrence Hurley and colleagues, with an educational shelly from [employer]. Review of Systems Const Denies body aches, Denies fatigue, Denies fever(s), Denies frequent falls, Denies headache(s) and Denies weakness Eyes Details: Blurred vision right eye Denies change in vision and Reports requires corrective lenses ENT Denies dysphagia, Denies dizziness, Denies facial pain, Denies headache(s), Denies nasal congestion and Denies odynophagia Card Denies chest pain, Denies syncope, Denies irregular heart rhythm, Denies leg edema, Denies lightheadedness and Denies dyspnea Resp Denies cough and Denies dyspnea GI Denies constipation, Denies dysphagia, Denies dyspepsia, Denies diarrhea, Denies nausea, Denies odynophagia and Denies vomiting Denies dysuria, Denies urinary frequency, Denies urinary hesitancy and Denies urinary urgency Musc Denies back pain and Denies myalgias Skin/Breast Reports system reviewed and no additional complaints, except as documented Neuro Denies dizziness, Denies syncope, Denies frequent falls, Denies headache(s) and Denies weakness Psych Reports no additional complaints Endo Denies fatigue Physical Exam Vital Signs: Last Vital Signs Pulse 55 06/01/24 09:00 BP 122/60 06/01/24 09:00 Pulse Ox 98 06/01/24 09:00 Oxygen Delivery Method Room Air 06/01/24 09:00 BMI result Body Mass Index 26.4 Const General: cooperative, healthy appearing, comfortable and no acute distress Orientation/consciousness: patient oriented x3 HEENT Head: Yes normocephalic Ears: hearing grossly normal bilaterally, external ears normal, TM's normal bilaterally and EAC's normal General nose exam: Normal external nose present Face and sinus: Yes normal facial exam and Yes sinuses nontender Mouth: Normal oral and palatal mucosa present and tongue normal Throat: Yes posterior oropharynx normal Eyes General: appearance normal, both eyes and all related structures Conjunctivae: conjunctivae normal Pupils: Equal, round and reactive pupils present EOM: EOMs intact bilaterally and No Nystagmus present Neck Neck: Yes normal visual inspection, Yes full ROM and Yes no lymphadenopathy Chest Chest palpation & inspection: normal inspection of the chest Resp Effort & Inspection: normal respiratory effort Auscultation: clear to auscultation bilaterally, no crackles, no rales, no rhonchi, no wheezes and breath sounds present Cardio Rate: regular rate Rhythm: regular rhythm Heart sounds: Murmur heart sound present systolic (In the aortic area) Peripheral pulses: radial pulses present and dorsalis pedis present GI Inspection: Yes normal to inspection and No Abdominal wall edema Palpation (GI): Soft to palpation, not firm and nontender Auscultation: normal bowel sounds Rectal Exam - Male: Yes deferred General: Yes no CVA tenderness Back/Spine/Pelvis Back: no CVA tenderness Skin General skin exam: no rashes or lesions noted Neuro General: patient oriented x3 Cranial nerves: Yes Equal, round and reactive pupils present, Yes Midline tongue present, Yes Ability to bilaterally elevate shoulders present and No Nystagmus present Gait exam (Neuro): Normal gait present Extrem General: Yes normal to inspection, Yes full ROM, No no pedal edema and No edema Psych Speech and movement: Normal speech and movement present Affect: normal affect Insight: Good insight present (Psych) Judgement: Good judgement present (Psych) Assessment & Plan Assessment & Plan (1) Basal cell carcinoma: Comment: Nasal route September 2023 Code(s): C44.91 - Basal cell carcinoma of skin, unspecified Plan: Completed Mohs surgery and was advised to follow up as needed. Continue to follow up Dermatology. (2) Nonrheumatic aortic (valve) stenosis: Comment: 31 July 2023 mild Code(s): I35.0 - Nonrheumatic aortic (valve) stenosis Plan: Denies any symptoms at this time we will continue to monitor with serial echocardiogram. Continue to follow with Cardiology. (3) Type 2 diabetes mellitus, controlled: Code(s): E11.9 - Type 2 diabetes mellitus without complications Plan: Decrease the amount of carbohydrates such as pasta, bread, rice, and potatoes and limit the amount of sweets. Although fruits are generally healthy they should be eaten in moderation as they are still high in sugar. Hemoglobin A1c goal of less than 7%. A1c 6.0% on last lab work continue on metformin. (4) Essential hypertension: Code(s): I10 - Essential (primary) hypertension Plan: Blood pressure at goal today 122/60 continue on current medication regimen. Encouraged healthy diet and regular exercise and continue to avoid salt. (5) Paroxysmal atrial flutter: Code(s): I48.92 - Unspecified atrial flutter Plan: Per Cardiology stable on current medication regimen continue to follow up with Cardiology. (6) Hypothyroid: Code(s): E03.9 - Hypothyroidism, unspecified Qualifiers: Hypothyroidism type: acquired Qualified Code(s): E03.9 - Hypothyroidism, unspecified Plan: TSH elevated but stable with normal T4 continue on levothyroxine. No reported symptoms. (7) Obstructive sleep apnea: Code(s): G47.33 - Obstructive sleep apnea (adult) (pediatric) Plan: Uses CPAP faithfully at least 4 hours a night and benefits from this therapy. (8) Hypercholesterolemia: Code(s): E78.00 - Pure hypercholesterolemia, unspecified Plan: Avoid foods that are high in cholesterol such as red meat, fried foods, eggs and baked goods. Triglyceride goal of less than 150 and LDL goal of less than 100. Continue on atorvastatin 40 mg. Cholesterol at goal on last labs. (9) Medicare annual wellness visit, subsequent: Code(s): Z00. - Encounter for general adult medical examination without abnormal findings Plan: Patient is up-to-date on all recommended routine screenings and vaccinations for his age. He will age out colonoscopy at 74. Follow up in 6 months for diabetes in 1 year for repeat annual wellness exam. [place] of care was reviewed at this visit as was recommended screenings. Plan This note was constructed using voice recognition software. While every effort has been made to ensure accuracy and human resources officer, still areas may have been included sometimes these areas may affect the content or meeting of the given symptoms. Total time spent caring for the patient today was 30 minutes. This includes time spent before the visit reviewing the chart, time spent during the visit, and time spent after the visit and documentation. Quality Reporting (2019) Depression/Bipolar (159/160/161/177) PHQ-9: Total score: 0 Coding Level of Care Code Medicare Subsequent (G0439) Diagnoses Basal cell carcinoma C44.91 Nonrheumatic aortic (valve) stenosis I35.0 Type 2 diabetes mellitus, controlled E11.9 Essential hypertension I10 Paroxysmal atrial flutter I48.92 Acquired hypothyroidism E03.9 Hypothyroidism type: acquired Obstructive sleep apnea G47.33 Hypercholesterolemia E78.00 Medicare annual wellness visit, subsequent Z
[2024-06-01 09:00] VITALS: BP 122/60; PULSE 55; O2SAT 98; BMI 26.4
== END 2024-06-01 09:31 | disposition home or self-care (01) ==
PROVIDERS: PCP Internal Medicine
DX: Z00.00 Encounter for general adult medical examination without abnormal findings (principal); E11.9 Type 2 diabetes mellitus without complications; I48.92 Unspecified atrial flutter; C44.91 Basal cell carcinoma of skin, unspecified; I35.0 Nonrheumatic aortic (valve) stenosis; I10 Essential (primary) hypertension; E03.9 Hypothyroidism, unspecified; G47.33 Obstructive sleep apnea (adult) (pediatric); E78.00 Pure hypercholesterolemia, unspecified

== ENCOUNTER → 2024-06-01 08:56 | Outpatient (BNVA) | payer MEDICARE, OTHER, SELFPAY | PROVIDERS: PCP Internal Medicine ==

== ENCOUNTER 2024-09-06 08:16 | Outpatient (AMB) | payer MEDICARE, OTHER, SELFPAY ==
[2024-09-06 08:31] VITALS: BP 120/50; BMI 26.3
--- NOTE | 2024-09-06 08:31 | MHC.OFFVIS ---
Vital Signs 09/06/24 08:31 Height 5 ft 11 in Weight 188 lb 4.396 oz BMI 26.3 BP 120/50 L Blood Pressure Location Lt brachial Position Sitting Intake Visit Reasons: 6 mth Contracts Paralegal Required: No Accompanied by: Self / Same As Patient Allergies No Known Allergies [No Known Allergies*] Allergy (Verified 06/01/24 09:11) Medication List - Last Reconciled 09/06/24 by Keith Contreras MD amlodipine 10 mg PO .PM apixaban (Eliquis) 5 mg PO BID atorvastatin 40 mg PO DAILY blood sugar diagnostic (FreeStyle Lite Strips) As directed check the BID cyanocobalamin (vitamin B-12) 1,000 mcg PO DAILY flecainide 50 mg PO Q12H levothyroxine (Synthroid) 100 mcg PO DAILY lisinopril 40 mg PO DAILY metformin 500 mg PO QID metoprolol succinate ER 50 mg PO DAILY HPI Comments Details: Abner returns for follow-up regarding atrial flutter. In the past, he underwent cardioversion for symptomatic atrial flutter. On beta-blockers/flecainide. Also on Eliquis. He states he is doing very well. Physically active with absolutely no limitations. No cardiac symptoms whatsoever. 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 Type 2 diabetes mellitus with unspecified complications History of cardioversion (~02/2019) Paroxysmal atrial flutter Retinal artery occlusion Thrombocytopenia Diabetic nephropathy Hypothyroid Obstructive sleep apnea Hypercholesterolemia Hypertension Type 2 diabetes mellitus with hyperglycemia Surgical History S/P Mohs surgery for basal cell carcinoma History of facial surgery History of shoulder surgery History of hernia surgery No pertinent past surgical history Family History (Updated 09/06/24 @ 11:34 by Keith Contreras MD) Brother Cardiomyopathy Social History Housing: House Alcohol intake: current Alcohol intake frequency: a few times a month Comment: 2-3 x a week 2 beers Patient Tobacco Use Status: Never used Tobacco e-Cigarette/Vaping Use: Never Used Second Hand Smoke Exposure: No service: No Current occupational status: retired Cognitive needs: No Hearing needs: No Vision needs: Yes Review of Systems Const Denies chills, Denies fatigue, Denies fever(s), Denies weight gain and Denies weight loss ENT Denies dizziness Card Denies chest pain, Denies leg edema, Denies lightheadedness, Denies palpitations, Denies dyspnea on exertion, Denies orthopnea and Denies other Resp Denies cough and Denies dyspnea on exertion GI Denies hematochezia and Denies change in stool character Musc Denies abnormal gait, Denies muscle weakness, Denies numbness, Denies radiating pain into limb and Denies tingling Neuro Denies abnormal gait, Denies dizziness, Denies numbness and Denies tingling Endo Denies fatigue and Denies palpitations Physical Exam Vital Signs: Last Vital Signs BP 120/50 L 09/06/24 08:31 BMI result Body Mass Index 26.3 Const General: comfortable and no acute distress Orientation/consciousness: patient oriented x3 HEENT Other: Unremarkable Head: Yes normal to inspection Neck Neck: Yes normal visual inspection Chest Chest palpation & inspection: normal inspection of the chest Resp Auscultation: clear to auscultation bilaterally Cardio Palpation: normal PMI Heart sounds: S1 normal heart sound present, S2 normal heart sound present, no gallops, Murmur heart sound present systolic II/ and no rubs GI Palpation (GI): Soft to palpation Back/Spine/Pelvis Other: unremarkable Skin General skin exam: no rashes or lesions noted Neuro General: patient oriented x3 Extrem General: Yes normal to inspection Psych Mental Status: mental status grossly normal Office Procedures EKG Details: EKG with underlying sinus bradycardia at 50/Min; no significant ST-T changes and otherwise unremarkable. [place]. [id number], Complete Assessment & Plan Assessment & Plan (1) Paroxysmal atrial flutter: Code(s): I48.92 - Unspecified atrial flutter Category: Medical Plan: Continue flecainide and beta-blockers. Continue anticoagulation. Cardiac testing- Echocardiogram 2022 with LVEF of 60-65%. Myocardial perfusion imaging study 2018 with likely normal perfusion. 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 No specific concerns. (3) Nonrheumatic aortic (valve) stenosis: Code(s): I35.0 - Nonrheumatic aortic (valve) stenosis Category: Medical Plan: Mild aortic stenosis on the last echocardiogram. May recheck before next visit. (4) Essential hypertension: Code(s): I10 - Essential (primary) hypertension Category: Medical Plan: Continue lisinopril, amlodipine. (5) Type 2 diabetes mellitus with unspecified complications: Code(s): E11.8 - Type 2 diabetes mellitus with unspecified complications Category: Medical Plan: On metformin. Last Hemoglobin A1c 6%. Seems controlled. (6) Obstructive sleep apnea: Code(s): G47.33 - Obstructive sleep apnea (adult) (pediatric) Category: Medical Plan: CPAP. Orders: Orders CA echo transthoracic complete 6 Months Keith Contreras MD I35.0 - Nonrheumatic aortic (valve) stenosis Medications: Changed From metformin 500 mg PO TID 90 days 270 tabs 2RF To metformin 500 mg PO QID Soraya Escudero MD Coding Level of Care Code Est Pt Level 4 (98713) Diagnoses Paroxysmal atrial flutter I48.92 Encounter for monitoring anti-arrhythmic therapy Z51.81; Z79.899 Nonrheumatic aortic (valve) stenosis I35.0 Essential hypertension I10 Type 2 diabetes mellitus with unspecified complications E11.8 Obstructive sleep apnea G47.33 CPT Codes EKG - CPT: [id number], Complete ([id number])
== END 2024-09-06 08:53 | disposition home or self-care (01) ==
PROVIDERS: PCP Internal Medicine; Visit Provider Internal Medicine
DX: I48.92 Unspecified atrial flutter (principal); Z51.81 Encounter for therapeutic drug level monitoring; Z79.899 Other long term (current) drug therapy; I35.0 Nonrheumatic aortic (valve) stenosis; I10 Essential (primary) hypertension; E11.8 Type 2 diabetes mellitus with unspecified complications; G47.33 Obstructive sleep apnea (adult) (pediatric)
CPT/HCPCS: 93010; 99214

== ENCOUNTER → 2024-09-06 08:16 | Outpatient (BNVA) | payer MEDICARE, OTHER, SELFPAY | PROVIDERS: PCP Internal Medicine; Visit Provider Internal Medicine | DX: I48.92 Unspecified atrial flutter (principal); I35.0 Nonrheumatic aortic (valve) stenosis; I10 Essential (primary) hypertension; G47.33 Obstructive sleep apnea (adult) (pediatric); E11.8 Type 2 diabetes mellitus with unspecified complications; Z51.81 Encounter for therapeutic drug level monitoring; Z79.899 Other long term (current) drug therapy | CPT/HCPCS: 93005; 99212 ==

== ENCOUNTER 2024-11-24 08:02 | Outpatient (REF) | payer MEDICARE, OTHER, SELFPAY ==
--- OUTSIDE RECORDS SUMMARY | 2024-11-24 08:06 | XMS_ITS | Data Portability ---
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 Feeling resting and notes difficulty if not using No recent audio No tinnitus or vertigo notes he has some HL especially in background situations. Denies any difficulty with nasal obstruction despite known septal deviation [email or web address] Not available 10/19/2024 08:56:27 Plan of Treatment Reminders Order Date Submit Date Provider Last Modified By Organization Details Last Modified Time Details Appointments Hearing Test 2024 09:00A M Hearing Test Not available Not available Not available Establish ed 15 2024 09:15A M NABEEL GRACE PA-C Not available Not available Not available Establish ed 15 2024 09:30A M NABEEL GRACE PA-C Not available Not available Not available Lab None recorded. Referral None recorded. Procedures None recorded. Surgeries None recorded. Imaging None recorded. Medication Orders None recorded. Patient TargetsNo targets recorded. Patient InstructionsNo instructions recorded. Reason for Referral None Reported. Results Created Date Observation Date Name Description Value Unit Range Abnormal Flag Note LastModifiedBy Organization Detail LastModifiedTime 10/19/19 25 audio gram No observ ation record ed. BARCODE Not Available 2024 11:23:43 Result Notes None recorded. Problems Name Problem SNOMED Code Status Onset Date Resolution Date Notes Provider Name and Address Organization Details Recorded Time Deviated nasal septum 378629498 Active 2014 Nasal septal deviation ; Note: Date Diagnosed : 10/26/2014 10:29 AM (470) Not Available Count includes the [facility] 4 03:28:45 Impacted cerumen of bilateral ears 29078386148 58556 Active 2017 Impacted cerumen, bilateral ; Note: Date Diagnosed : 10/23/2017 1:33 PM (H61.23) Not Available Count includes the [facility] 4 03:28:45 Obstructi ve sleep apnea syndrome 37064554 Active 2020 LALA; Note: Date Diagnosed : 10/26/2014 10:29 AM (327.23) ; Start Date : 5 Obstruc tive sleep apnea (adult) (pediatri c); Note: Date Diagnosed : 05/21/2021 3:15 PM (G47.33) Not Available Count includes the [facility] 4 03:28:45 Abnormal auditory perceptio n 98083803 Active 2024 BRENDAN YOUNGBLOOD MD [address] [place] [address], [place], [phone] , [facility] - [facility] 5 08:57:03 Abnormal auditory perceptio n 92110882 Active 2024 BRENDAN YOUNGBLOOD MD [address] [place] [address],[place] [address], [place], [phone] , [facility] - [facility] 5 08:57:09 Sensorine ural hearing loss of bilateral ears 135808609 Active 2024 VIRGIL COPELAND [address] [place] [address],[place] [address], [place], [phone] , [facility] - [facility] 5 09:30:44 Problem Notes None recorded. Procedures Surgical History Date Name Laterality Status Provider Name and Address Organization Details Recorded Time 10/19/19 25 Comp Audio with Tymps (15000 & 85160) completed VIRGIL COPELAND [address] [facility],[place] [address], [place], [address], [facility] - [facility] 10/19/2024 09:30:38 repair of retina for retinal detachment completed Lyric Baker [place] - [facility] 10/19/2024 08:40:33 hernia repair completed Lyric Baker [place] [facility] 10/19/2024 08:40:43 procedure on shoulder completed Lyric Baker [facility] 10/19/2024 08:40:48 cardioversion completed Lyric Baker [facility] 10/19/2024 08:40:56 Imaging Results Imaging Date Name Status LastModified by Organiz ation Details LastModified Time 10/19/2024 audiogram completed BARCODE Information no t available 10/19/2024 11:23:43 Procedure Notes None recorded. Medical Equipment None Reported. Allergies No known drug allergies Medications Name Sig Start Date Stop Date Status Note LastModified by Organization Details LastModified Time atorvasta tin 40 mg tablet TAKE 1 TABLET DAILY active Not Available Not Available No t Available metformin 500 mg tablet TAKE 1 TABLET 4 TIMES DAILY active Not Available Not Available No t Available metoprolo l succinate ER 50 mg tablet,ex tended release 24 hr TAKE 1 TABLET BY MOUTH DAILY active Not Available Not Available No t Available lisinopri l 20 mg tablet 12/17 completed Medicati on ID: [id number] D uration Value: 90 Brand Name: lisinopr il Send Method: E-Prescr ibed Sub s Allowed: subs OK Medic ationGen ericName : lisinopr il Not Available Not Available Not Available Synthroid 100 mcg tablet TAKE 1 TABLET DAILY active Not Available Not Available No t Available amlodipin e 2.5 mg tablet 10/19 completed Medicati on ID: [id number] B rand Name: amlodipi ne Send Method: E-Prescr ibed Sub s Allowed: subs OK Medic ationGen ericName : amlodipi ne Not Available Not Available Not Available tramadol 50 mg tablet TAKE 1 TABLET BY MOUTH EVERY 4 TO 6 HOURS NEEDED FOR PAIN 10/19 completed Not Available Not Available Not Available amlodipin e 10 mg tablet TAKE 1 TABLET EVERY EVENING active Not Available Not Available No t Available cephalexi n 500 mg capsule TAKE 1 CAPSULE BY MOUTH THREE TIMES DAILY AFTER SURGERY 10/19 completed Not Available Not Available Not Available erythromy song 5 mg/gram (0.5 %) eye ointment APPLY A THIN RIBBON TO RIGHT LOWER LID SUTURE AREAS THREE TIMES DAILY AFTER SURGERY 10/19 completed Not Available Not Available Not Available flecainid e 50 mg tablet TAKE 1 TABLET BY MOUTH EVERY 12 HOURS active Not Available Not Available No t Available lisinopri l 5 mg tablet 12/17 completed Medicati on ID: [id number] Br and Name: lisinopr il Send Method: E-Prescr ibed Sub s Allowed: subs OK Medic ationGen ericName : lisinopr il Not Available Not Available Not Available lisinopri l 40 mg tablet TAKE 1 TABLET DAILY active Not Available Not Available No t Available Baby Aspirin 12/17 completed Medicati on ID: [id number] Br and Name: baby aspirin Send Method: E-Prescr ibed Sub s Allowed: subs OK Medic ationGen ericName : baby aspirin Not Available Not Available Not Available hydrochlo rothiazid e 12.5 mg tablet 12/17 completed Medicati on ID: [id number] Br and Name: hydrochl orothiaz memo Send Method: E-Prescr ibed Sub s Allowed: subs OK Medic ationGen ericName : hydrochl orothiaz memo Not Available Not Available Not Available FreeStyle Lite Strips USE TO TEST TWICE DAILY DIRECTED active Not Available Not Available No t Available Eliquis 5 mg tablet TAKE 1 TABLET TWICE A DAY active Not Available Not Available No t Available BinaxNOW COVID-19 Ag Self Test kit TEST DIRECTED TODAY 10/19 completed Not Available Not Available Not Available Vitals Date Recorded Body height Body weight Provider Name and Address Organization Details Last Updated DateTime 10/19/2024 180.34 cm 71896.59 g Lyric Baker [place] - [facility] 10/19/2024 08:44:04 Social History None recorded. Functional Status None recorded. Mental Status None recorded. Family History Nothing Reported. Medical History Condition Response Thyroid Problems Y Hypertension Y Sleep Disorder Y High Cholesterol Y Past Encounters Encounter ID Performer Location Encounter Start Date Encounter Closed Date Diagnosis/Indication Diagnosis SNOMED-CT Code Diagnosis ICD10 Code Diagnosis Note [id number] BRENDAN YOUNGBLOOD MD [facility] [address] [place] [address] 10/19/2024 08:35:22 10/19/2024 09:54:35 Impacted cerumen of bilateral ears [id number] 398630 H61.23 Suggested 3 drops distilled vinegar in each ear twice weekly to prevent the buildup of cerumen Obstructiv e sleep apnea syndrome 56437460 G47.33 Patient appears compliant with CPAP and benefiting from the device. 1 year follow-up with ct for CPAP compliance Deviated nasal septum 12 0451519 J34.2 asymptomat ic Abnormal a uditory perception 57436118 H93.293 audio reviewed there is mild sensorineu ral hearing loss in the mid frequencie s there is slight asymmetry at 2000 Hz left compared to right. Speech discrimina tion scores are very good. He does have a history of some noise exposure using a chainsaw but he has worn hearing protection over the years. At this point we discussed the asymmetry is not bad enough to consider imaging like an MRI scan to look for an acoustic tumor. We will have him return in 6 months for follow-up audiometri c testing. If the asymmetry worsens or he notes symptoms that are unilateral , we can consider imaging Sensorineu ral hearing loss of bilateral ears 661898906 H90.3 6-month follow-up with [place] for audiometri c testing. [id number] VIRGIL COPELAND [facility] [address] [address] 10/19/2024 09:29:51 10/20/2024 07:42:46 Sensorineural hearing loss of bilateral ears 524049814 H90.3 Audiologic al evaluation results: Right ear: {{Normal* Normal through 2 kHz Mild M oderate Mo derately-s evere Laney re Profoun d}} {{hearing hearing. s loping to a mild slopi ng to a moderate* sloping to moderately severe slo ping to severe slo ping to profound f lat high frequency low frequency mid frequency cookie bite norwood curve}} {{with sen sorineural hearing loss with* cond uctive hearing loss with mixed hearing loss with}} {{excellen t* good fa ir poor no measurable }} word recognitio n. Left ear: {{Normal* Normal through 2 kHz Mild M oderate Mo derately-s evere Laney re Profoun d}} {{hearing hearing. s loping to a mild* slop ing to a moderate s loping to moderately severe slo ping to severe slo ping to profound f lat high frequency low frequency mid frequency cookie bite [place]wood curve}} {{with sen sorineural hearing loss with* cond uctive hearing loss with mixed hearing loss with}} {{excellen t* good fa ir poor no measurable }} word recognitio n. Tympanomet ry: Right Ear:{{Type A* Type As Type Ad Type C Type C, shallow & rounded Ty pe B Type B with large volume Cou ld not maintain a hermetic seal}} Left Ear:{{Type A* Type As Type Ad Type C Type C, shallow & rounded Ty pe B Type B with large volume Cou ld not maintain a hermetic seal}} Health Concerns Section Related Observation LastModified by Organization Detai ls LastModified Time None Recorded Concern Status LastModified by Organization Details LastModified Time None Recorded Advance Directives Directive None Recorded Payers Encounter Date Sequence Insurance Name Policy Number Policy Doyle Covered Member ID Doyle Member ID Guarantor Name 10/19/2024 2 [facility] [id number] Abner Hines [place] [id number] Abner Solorio 10/19/2024 1 MEDICARE B-PA: [facility] Abner Solorio [id number] Abner Solorio 10/19/2024 2 [facility] [id number] Abner Hines [place] [id number] Abner Solorio Sr 10/19/2024 1 MEDICARE B-PA: [facility] Abner Solorio [id number] Abner Solorio Notes Date Note Type Note Provider Name and Address Organization Details Recorded Time 10/19/2024 text/html Using CPAP at least 7 hours per night. Feeling resting and notes difficulty if not usingNo recent audioNo tinnitus or vertigoWife notes he has some HL especially in background situations. Denies any difficulty with nasal obstruction despite known septal deviation BRENDAN HARPER MD [address] [place] [address],[place] [address], [place], [address], [facility] - [facility] 10/19/2024 09:52:23
--- OUTSIDE RECORDS SUMMARY | 2024-11-24 08:06 | XMS_ITS | Clinical Summary ---
Author Organization [facility] Address [address] [place] [address] Care Team Providers Care Member Service Representative Name Role Phone Pcp, No Primary Care Provider Unavailabl e Allergies No known active allergies Medications Medication Sig Dispensed Refills Start Date End Date Status lisinopril (PRINIVIL,ZeSTRIL) 40 MG tablet 01/02/2021 Active levothyroxine (SYNTHROID, LEVOTHROID) 100 MCG tablet Take 100 mcg by mouth daily. 01/27/2021 Active Eliquis 5 MG tablet 01/02/2021 Activ e amLODIPine (NORVASC) 2.5 MG tablet 02/05/2021 Active atorvastatin (LIPITOR) 40 MG tablet 01/02/2021 Active flecainide (TAMBOCOR) 50 MG tablet Take 50 mg by mouth twice daily (every 12 hours). 12/23/2020 Active FREESTYLE LITE strip 02/05/2021 Acti ve metoPROLOL SUCCINATE (TOPROL-XL) 50 MG 24 hr tablet Take 50 mg by mouth daily. 11/19/2020 Active metFORMIN (GLUCOPHAGE) 500 MG tablet 01/08/2021 Active Social History Tobacco Use Types Packs/Day Years Used Date Smoking Tobacco: Never Assessed Sex and Gender Information Value Date Recorded Sex Assigned at Not on file Gender Identity Not on file Sexual Orientation Not on file Last Filed Vital Signs Vital Sign Reading Time Taken Comments Blood Pressure 165/77 02/05/2021 12:20 PM EDT Pulse 54 02/05/2021 12:20 PM EDT Temperature 36.6 ??C (97.8 ??F) 02/05/2021 12:20 PM E DT Respiratory Rate - - Oxygen Saturation 96% 02/05/2021 12:20 PM EDT Inhaled Oxygen Concentration - - Weight 81.6 kg (180 lb) 02/05/2021 12:20 PM EDT Height 180.3 cm (5' 11 ) 02/05/2021 12:20 PM EDT Body Mass Index 25.1 02/05/2021 12:20 PM EDT Plan of Treatment Health Maintenance Due Date Last Done Comments Hepatitis C Virus Screening 1950 DTaP/Tdap/Td Vaccines (1 - Tdap) 1968 Colonoscopy 1994 Pneumococcal Vaccines 50+ (1 of 1 - PCV) 1999 Zoster (Shingles) Vaccine (1 of 2) 1999 Influenza Vaccine 03/24/2024 COVID-19 Vaccine (1 - 2023-2 5 season) 2024 RSV Vaccine 60 years and old er and Patients (1 - 1-dose 75+ series) 2024 Hepatitis B Vaccines Aged Out No long er eligible based on patient's age to complete this topic Care Teams Member Service Representative Relationship Specialty Start Date End Date Pcp, No [address] [place] [address] PCP - General 01/09/21
[2024-11-24 09:26] LABS: Creatinine Urine 53.72 mg/dL
== END 2024-11-24 08:03 | disposition home or self-care (01) ==
LOC: HO.LAB 08:02
PROVIDERS: PCP Internal Medicine; Visit Provider Internal Medicine
DX: E11.65 Type 2 diabetes mellitus with hyperglycemia (principal)
CPT/HCPCS: 82570

== ENCOUNTER 2024-11-30 08:18 | Outpatient (AMB) | payer MEDICARE, OTHER, SELFPAY ==
--- NOTE | 2024-11-30 08:23 | MHC.PC.OV ---
Vital Signs 11/30/24 08:26 Height 5 ft 11 in Weight 189 lb 6 oz BMI 26.4 BP 128/74 Blood Pressure Location Lt brachial Position Sitting Pulse 56 Pulse Source Pulse Oximeter Temp 96.9 F Temp Source Temporal Artery Scan Pulse Oximetry (%) 97 Oxygen Delivery Method Room Air Intake Visit Reasons: f/u DM Intake Note: Patient is here to follow up on DM. Vault Manager Required: No Strip Polisher: Not Required per policy Accompanied by: Self / Same As Patient Allergies No Known Allergies [No Known Allergies*] Allergy (Verified 11/30/24 08:26) Medication List - Last Reconciled 11/30/24 by Soraya Escudero MD amlodipine 10 mg PO .PM apixaban (Eliquis) 5 mg PO BID atorvastatin 40 mg PO DAILY blood sugar diagnostic (FreeStyle Lite Strips) As directed check the BID cyanocobalamin (vitamin B-12) 1,000 mcg PO DAILY flecainide 50 mg PO Q12H levothyroxine (Synthroid) 100 mcg PO DAILY lisinopril 40 mg PO DAILY metformin 1,000 mg PO BIDWMEAL metoprolol succinate ER 50 mg PO DAILY Tobacco use date assessed: 11/30/24 Fall risk assessment: No Falls in past year Last assessed Fall Risk: 11/30/24 Dental Screening Dental Screen Date: 11/30/24 Did you have a dental visit in the last 12 months?: Yes Did you have a dental problem in the last 6 months where you did not have access to dental care?: No Was dental information given to patient?: Patient has dentist [facility] Medical History (Updated 11/30/24 @ 08:40 by Soraya Escudero MD) Nonrheumatic aortic (valve) stenosis COVID-19 virus infection Impacted cerumen of both ears Medicare annual wellness visit, initial Encounter for monitoring anti-arrhythmic therapy prison current use of anticoagulant long term current use of antiarrhythmic drug Type 2 diabetes mellitus with unspecified complications History of cardioversion (~02/2019) Paroxysmal atrial flutter Retinal artery occlusion Thrombocytopenia Diabetic nephropathy Hypothyroid Obstructive sleep apnea Hypercholesterolemia Hypertension Type 2 diabetes mellitus with hyperglycemia Surgical History S/P Mohs surgery for basal cell carcinoma History of facial surgery History of shoulder surgery History of hernia surgery No pertinent past surgical history Family History Brother Cardiomyopathy Social History Housing: House Alcohol intake: current Alcohol intake frequency: a few times a month Comment: 2-3 x a week 2 beers Patient Tobacco Use Status: Never used Tobacco e-Cigarette/Vaping Use: Never Used Second Hand Smoke Exposure: No service: No Current occupational status: retired Cognitive needs: No Hearing needs: No Vision needs: Yes (Glasses) Questionnaire PHQ-9 Over the last 2 weeks, how often have you been bothered by any of the following problems? 1. Little interest or pleasure in doing things: not at all 2. Feeling down, depressed, or hopeless: not at all 3. Trouble falling or staying asleep, or sleeping too much: not at all 4. Feeling tired or having little energy: not at all 5. Poor appetite or overeating: not at all 6. Feeling bad about yourself - or that you are a failure or have let yourself or your family down: not at all 7. Trouble concentrating on things, such as reading the newspaper or watching television: not at all 8. Moving or speaking so slowly that other people could have noticed. Or the opposite - being so fidgety or restless that you have been moving around a lot more than usual: not at all 9. Thoughts that you would be better off or of hurting yourself in some way: not at all Total score: 0 Depression Screening Interpretation: Negative Depression Screening Done: Yes Source: Developed by Drs. Marcus Anand, Sapna Mishra, Lawrence Hurley and colleagues, with an educational shelly from [employer]. Thrive Questionnaire Date Thrive assessed: 11/30/24 I am a: Patient What is your living situation today?: I have a steady place to live Within the past 12 months, did the food you bought not last and you didn't have the money to get more?: Never true Within the past 12 months, did you worry whether your food would run out before you got money to buy more?: Never true Do you have trouble paying for medicines?: No Do you have trouble getting transportation to medical appointments?: No Do you have trouble paying your heating and electricity bill?: No Do you have trouble taking care of your child, family member or friend?: No Do you have trouble with day-to-day activities such as bathing, preparing meals, shopping, managing finances, etc.?: No Are you currently unemployed and looking for a job?: No Are you interested in more education?: No Please select the resources that you would like help with: None Currently or been in a relationship where the following occur: No concerns reported THRIVE Score: 0 AUDIT C Alcohol Use Questionnaire (AUDIT-C) 1. How often do you have a drink containing alcohol?: 2-3 times a week 2. How many drinks containing alcohol do you have on a typical day when you are drinking?: 1 or 2 Total Score: 3 DAINA-7 AMB Questionnaire DAINA-7 Date DAINA - 7 assessed: 11/30/24 Feeling nervous, anxious, or on edge: 0 = Not at all Not being able to stop or control worryin = Not at all Worrying too much about different things: 0 = Not at all Trouble relaxin = Not at all Being so restless that it is hard to sit still: 0 = Not at all Becoming easily annoyed or irritable: 0 = Not at all Feeling afraid as if something awful might happen: 0 = Not at all Total DAINA-7 score (0-4 normal; 5-9 mild; 10-14 moderate; 15-21 severe): 0 Source: Developed by Drs. Marcus Anand, Sapna Mishra, Lawrence Hurley and colleagues, with an educational shelly from [employer]. Physical exam (Primary Care) Vital Signs: Last Vital Signs Temp 96.9 F 11/30/24 08:26 Pulse 56 11/30/24 08:26 BP 128/74 11/30/24 08:26 Pulse Ox 97 11/30/24 08:26 Oxygen Delivery Method Room Air 11/30/24 08:26 BMI result Body Mass Index 26.4 Tobacco/Smoking Status: Tobacco use Status Tobacco use date assessed 11/30/24 11/30/24 08:26 Patient Tobacco Use Status Never used Tobacco 11/30/24 08:26 e-Cigarette/Vaping Use Never Used 11/30/24 08:26 PHQ-9: PHQ-9 Score PHQ-9: Total score 0 11/30/24 08:26 Depression Screening Interpretation: Negative Thrive Assessment: Date of Thrive Assessment Date Thrive assessed 11/30/24 11/30/24 08:26 Currently or been in a relationship where the following occur: No concerns reported Const General: alert; No acute distress Eyes Conjunctivae: conjunctivae normal Resp Auscultation: clear to auscultation bilaterally Cardio Rate: regular rate Rhythm: regular rhythm GI Inspection: Yes normal to inspection Extrem General: Yes normal to inspection and No edema Results AMB Hemoglobin A1c AMB Hemoglobin A1c 6.1 % Last Edit by LITO Mancia on 11/30/24 08:40 Results Reviewed Results Reviewed: Laboratory Last Values Hgb A1c (Clinic) 6.1 % (4.0-6.0) H 11/30/24 08:23 Coding Level of Care Code Est Pt Level 4 (21023) Complex EM visit Add On G2211 Diagnoses Type 2 diabetes mellitus with hyperglycemia, without long-term current use of insulin E11.65 Diabetes mellitus ferry terminal agent insulin use: without ferry terminal agent use Hypercholesterolemia E78.00 Obstructive sleep apnea G47.33 Acquired hypothyroidism E03.9 Hypothyroidism type: acquired Paroxysmal atrial flutter I48.92 Essential hypertension I10 Assessment & Plan Assessment & Plan (1) Type 2 diabetes mellitus with hyperglycemia: Comment: Dr. Johnson Code(s): E11.65 - Type 2 diabetes mellitus with hyperglycemia Category: Medical Qualifiers: Diabetes mellitus group home insulin use: without group home use Qualified Code(s): E11.65 - Type 2 diabetes mellitus with hyperglycemia Plan: Decrease the amount of carbohydrate intake, pasta, bread, rice and potatoes are all sugar and that is aside from all the sweet stuff, remember that fruits are good but they are Sweet also. Hemoglobin A1c goal of less than 7.0 patient on metformin 500 mg (2) Hypercholesterolemia: Code(s): E78.00 - Pure hypercholesterolemia, unspecified Category: Medical Plan: Avoid fried foods, chicken skin, eggs, butter margarine, pastries and meat. Be it pork or beef they have a lot of cholesterol LDL goal of less than 100 and triglyceride of less than 150 on atorvastatin 40 mg once a day (3) Obstructive sleep apnea: Code(s): G47.33 - Obstructive sleep apnea (adult) (pediatric) Category: Medical Plan: Continue to use the CPAP more than 4 hours a night and benefits from this. (4) Hypothyroid: Code(s): E03.9 - Hypothyroidism, unspecified Category: Medical Qualifiers: Hypothyroidism type: acquired Qualified Code(s): E03.9 - Hypothyroidism, unspecified Plan: Patient needs blood work. On thyroid medication 100 mcg once a day (5) Paroxysmal atrial flutter: Code(s): I48.92 - Unspecified atrial flutter Category: Medical Plan: Continue to follow up with Cardiology patient is on anticoagulation as well as on flecainide (6) Essential hypertension: Code(s): I10 - Essential (primary) hypertension Category: Medical Plan: Continue with blood pressure medication. Decrease salt intake and exercise metoprolol 50 mg once a day lisinopril 40 mg once a day and amlodipine 10 mg once a day. Orders: Orders Complete Blood Count Auto Diff Today E11.65 - Type 2 diabetes mellitus with hyperglycemia Microalbumin, Random (w Creat) Today E11.65 - Type 2 diabetes mellitus with hyperglycemia Creatinine Urine Today E11.65 - Type 2 diabetes mellitus with hyperglycemia Vitamin B12 and Folate Today E78.00 - Pure hypercholesterolemia, unspecified Lipid Panel Today E78.00 - Pure hypercholesterolemia, unspecified Hemoglobin A1c 6 Months E11.65 - Type 2 diabetes mellitus with hyperglycemia B Type Natriuretic Peptide 6 Months E11.65 - Type 2 diabetes mellitus with hyperglycemia Thyroid Stimulating Hormone 6 Months E11.65 - Type 2 diabetes mellitus with hyperglycemia Free T4 (Free Thyroxine) 6 Months E11.65 - Type 2 diabetes mellitus with hyperglycemia AMB Hemoglobin A1c Today E11.9 - Type 2 diabetes mellitus without complications Thyroid Stimulating Hormone Today E03.9 - Hypothyroidism, unspecified Free T4 (Free Thyroxine) Today E03.9 - Hypothyroidism, unspecified Comprehensive Met. Panel Today E11.65 - Type 2 diabetes mellitus with hyperglycemia Complete Blood Count Auto Diff 6 Months E11.65 - Type 2 diabetes mellitus with hyperglycemia Comprehensive Met. Panel 6 Months E11.65 - Type 2 diabetes mellitus with hyperglycemia Lipid Panel 6 Months E11.65 - Type 2 diabetes mellitus with hyperglycemia, E78.00 - Pure hypercholesterolemia, unspecified Medications: Changed From metformin 500 mg PO QID 270 tabs 2RF E78.00 - Pure hypercholesterolemia, unspecified To metformin 1,000 mg PO BIDWMEAL E78.00 - Pure hypercholesterolemia, unspecified
[2024-11-30 08:26] VITALS: BP 128/74; PULSE 56; TEMP 36.1; O2SAT 97; BMI 26.4
--- OUTSIDE RECORDS SUMMARY | 2024-11-30 08:27 | XMS_ITS | Clinical Summary ---
Author Organization [facility] Address [address] [place] [address] Care Team Providers Care Machine Repair Person Name Role Phone Pcp, No Primary Care [...] age to complete this topic Care Teams Machine Repair Person Relationship Specialty Start Date End Date Pcp, No [address] [place] [address] PCP - General 01/09/21
--- OUTSIDE RECORDS SUMMARY | 2024-11-30 08:27 | XMS_ITS | Data Portability ---
Author Organization [place] [facility], Allergy Address [address] [address] Care Team Providers Care Kindergarten Tutor Name Role Phone CHRIS CAMACHO Primary Care [...] Organization Details Recorded Time Deviated nasal septum 604812227 Active 2014 Nasal septal deviation ; Note: Date Diagnosed : 10/26/2014 10:29 AM (470) Not Available [facility] 4 03:28:45 Impacted cerumen of bilateral ears 45320901253 79659 Active 2017 Impacted cerumen, bilateral ; Note: Date Diagnosed : 10/23/2017 1:33 PM (H61.23) Not Available [facility] 4 03:28:45 Obstructi ve sleep apnea syndrome 56830970 Active 2020 LALA; Note: Date Diagnosed : 10/26/2014 10:29 AM (327.23) ; Start Date : 5 Obstruc tive sleep apnea (adult) (pediatri c); Note: Date Diagnosed : 05/21/2021 3:15 PM (G47.33) Not Available [facility] 4 03:28:45 Abnormal auditory perceptio n 01628388 Active 2024 BRENDAN YOUNGBLOOD MD [address] [place] [address], [place], [address] , [facility] 5 08:57:03 Abnormal auditory perceptio n 92151687 Active 2024 BRENDAN YOUNGBLOOD MD [address] [place] [address],[place] [address], [place], [address] , [facility] 5 08:57:09 Sensorine ural hearing loss of bilateral ears 824633982 Active 2024 VIRGIL COPELAND [address] [place] [address],[place] [address], [place], [address] , [facility] - [facility] 5 09:30:44 Problem Notes None recorded. Procedures Surgical History Date Name Laterality Status Provider Name and Address Organization Details Recorded Time 10/19/19 25 Comp Audio with Tymps (66476 & 04508) completed VIRGIL COPELAND [address] [facility],[place] [address], [place], [address], [facility] 10/19/2024 09:30:38 repair of retina for retinal detachment completed Lyric Baker [place] - [facility] 10/19/2024 08:40:33 hernia repair completed Lyric Baker [place] [facility] 10/19/2024 08:40:43 procedure on shoulder completed Lyric Baker [facility] 10/19/2024 08:40:48 cardioversion completed Lyric Baker [facility] 10/19/2024 08:40:56 Imaging Results Imaging Date Name [...] mg tablet 12/17 completed Medicati on ID: [id number] D uration Value: 90 Brand Name: lisinopr il Send Method: E-Prescr ibed Sub s Allowed: subs OK Medic ationGen ericName : lisinopr il Not Available Not Available Not Available Synthroid 100 mcg tablet TAKE 1 TABLET DAILY active Not Available Not Available No t Available amlodipin e 2.5 mg tablet 10/19 completed Medicati on ID: [id number] B rand Name: amlodipi ne Send Method: [...] mg tablet 12/17 completed Medicati on ID: [id number] Br and Name: lisinopr il Send Method: E-Prescr ibed Sub s Allowed: subs OK Medic ationGen ericName : lisinopr il Not Available Not Available Not Available lisinopri l 40 mg tablet TAKE 1 TABLET DAILY active Not Available Not Available No t Available Baby Aspirin 12/17 completed Medicati on ID: [id number] Br and Name: baby aspirin Send Method: E-Prescr ibed Sub s Allowed: subs OK Medic ationGen ericName : baby aspirin Not Available Not Available Not Available hydrochlo rothiazid e 12.5 mg tablet 12/17 completed Medicati on ID: [id number] Br and Name: hydrochl orothiaz memo Send [...] Details Last Updated DateTime 10/19/2024 180.34 cm 65416.59 g Lyric Baker [place] [facility] 10/19/2024 08:44:04 Social History None recorded. Functional Status None recorded. Mental Status None recorded. Family History Nothing Reported. Medical History Condition Response Thyroid Problems Y Sleep Disorder Y High Cholesterol Y Hypertension Y Past Encounters Encounter ID Performer Location Encounter Start Date Encounter Closed Date Diagnosis/Indication Diagnosis SNOMED-CT Code Diagnosis ICD10 Code Diagnosis Note [id number] BRENDAN YOUNGBLOOD MD [facility] [address] [place] [address] 10/19/2024 08:35:22 10/19/2024 09:54:35 Impacted cerumen of bilateral ears [id number] 566367 H61.23 Suggested 3 drops distilled vinegar in each ear twice weekly to prevent the buildup of cerumen Obstructiv e sleep apnea syndrome 38723090 G47.33 Patient appears compliant with CPAP and benefiting from the device. 1 year follow-up with [place] for CPAP compliance Deviated nasal septum 12 1611222 J34.2 asymptomat ic Abnormal a uditory perception 80010599 H93.293 audio reviewed there is mild sensorineu [...] Sensorineu ral hearing loss of bilateral ears 200635049 H90.3 6-month follow-up with [place] for audiometri c testing. [id number] VIRGIL COPELAND [facility] [address] [address] 10/19/2024 09:29:51 10/20/2024 07:42:46 Sensorineural hearing loss of bilateral ears 178375710 H90.3 Audiologic al evaluation results: Right ear: [...] Doyle Member ID Guarantor Name 10/19/2024 2 [facility] [id number] Abner Hines Osmin [id number] Abner Solorio 10/19/2024 1 [place]IC[place]: [facility] Abner Solorio [id number] Abner Solorio 10/19/2024 2 [facility] [id number] Abner Hines Osmin [id number] Abner Solorio Sr 10/19/2024 1 [place] [facility] Abner Solorio [id number] Abner Solorio Notes Date Note Type Note Provider Name and Address Organization Details Recorded Time 10/19/2024 text/html Using CPAP at least 7 hours per night. Feeling resting and notes difficulty if not usingNo recent audioNo tinnitus or vertigoWife notes he has some HL especially in background situations. Denies any difficulty with nasal obstruction despite known septal deviation BRENDAN HARPER MD [address] [place] [address],[place] [address], [place], [address], [facility] 10/19/2024 09:52:23
== END 2024-11-30 08:46 | disposition home or self-care (01) ==
LOC: HO.HMCH 08:18
PROVIDERS: PCP Internal Medicine; Visit Provider Internal Medicine
DX: E11.65 Type 2 diabetes mellitus with hyperglycemia (principal); I48.92 Unspecified atrial flutter; E11.9 Type 2 diabetes mellitus without complications; E78.00 Pure hypercholesterolemia, unspecified; G47.33 Obstructive sleep apnea (adult) (pediatric); E03.9 Hypothyroidism, unspecified; I10 Essential (primary) hypertension

== ENCOUNTER → 2024-11-30 08:18 | Outpatient (BNVA) | payer MEDICARE, OTHER, SELFPAY | PROVIDERS: PCP Internal Medicine; Visit Provider Internal Medicine | DX: E11.65 Type 2 diabetes mellitus with hyperglycemia (principal); E78.00 Pure hypercholesterolemia, unspecified; E03.9 Hypothyroidism, unspecified; G47.33 Obstructive sleep apnea (adult) (pediatric); I48.92 Unspecified atrial flutter; I10 Essential (primary) hypertension | CPT/HCPCS: 83036; 99212 ==

== ENCOUNTER 2024-12-28 06:54 | Outpatient (REF) | payer MEDICARE, OTHER, SELFPAY ==
--- OUTSIDE RECORDS SUMMARY | 2024-12-28 06:56 | XMS_ITS | Clinical Summary ---
Author Organization [facility] Address [address] [place] [address] Care Team Providers Care Real Estate Underwriter Name Role Phone Pcp, No Primary Care Provider Unavailabl e Allergies No known active allergies Medications lisinopril (PRINIVIL,ZeSTRI L) 40 MG tablet 01/02/2021 Act magdy levothyroxine (SYNTHROID, LEVOTHROID) 100 MCG tablet Take 100 mcg by mouth daily. 01/27/2021 Active Eliquis 5 MG tablet 01/02/2021 Active amLODIPine (NORVASC) 2.5 MG tablet 02/05/2021 Active atorvastatin (LIPITOR) 40 MG tablet 01/02/2021 Active flecainide (TAMBOCOR) 50 MG tablet Take 50 mg by mouth twice daily (every 12 hours). 12/23/2020 Active FREESTYLE LITE strip 02/05/2021 Active metoPROLOL SUCCINATE (TOPROL-XL) 50 MG 24 hr tablet Take 50 mg by mouth daily. 11/19/2020 Active metFORMIN (GLUCOPHAGE) 500 MG tablet 01/08/2021 Active Social History Tobacco Use Types Packs/Day Years Used Date Smoking Tobacco: Never Assessed Sex and Gender Information Value Date Recorded Sex Assigned at Not on file Legal Sex Male 6:10 PM EST Gender Identity Not on file Sexual [...] Zoster (Shingles) Vaccine (1 of 2) 1999 COVID-19 Vaccine ( - 2023-2 5 season) 2024 RSV Vaccine 60 years and old er and Patients (1 - 1-dose 75+ series) 2024 Influenza Vaccine 03/24/2025 Hepatitis B Vaccines Aged Out No long er eligible based on patient's age to complete this topic Insurance MEDICARE PART A & B [facility] Care Teams Real Estate Underwriter Relationship Specialty Start Date End Date Pcp, No [address] [place] [address] PCP - General 01/09/21
--- OUTSIDE RECORDS SUMMARY | 2024-12-28 06:56 | XMS_ITS | Data Portability ---
Author Organization [place] - [facility], Allergy Address [address] [address] Care Team Providers Care Siding Installer Name Role Phone CHRIS CAMACHO Primary Care Provider [phone] Assessment Encounter Date Assessment Date Assessment LastModified [...] Organization Details Recorded Time Deviated nasal septum 695703659 Active 2014 Nasal septal deviation ; Note: Date Diagnosed : 10/26/2014 10:29 AM (470) Not Available [facility] 4 03:28:45 Impacted cerumen of bilateral ears 24479750515 36070 Active 2017 Impacted cerumen, bilateral ; Note: Date Diagnosed : 10/23/2017 1:33 PM (H61.23) Not Available [facility] 4 03:28:45 Obstructi ve sleep apnea syndrome 25669467 Active 2020 LALA; Note: Date Diagnosed : 10/26/2014 10:29 AM (327.23) ; Start Date : 5 Obstruc tive sleep apnea (adult) (pediatri c); Note: Date Diagnosed : 05/21/2021 3:15 PM (G47.33) Not Available [facility] 4 03:28:45 Abnormal auditory perceptio n 44277868 Active 2024 BRENDAN YOUNGBLOOD MD [address] [place] [address],[place] [address], [place], [address] , [facility] - [facility] [place] 5 08:57:03 Abnormal auditory perceptio n 41231359 Active 2024 BRENDAN YOUNGBLOOD MD [address] [place] [address],[place] [address], [place], [address] , [facility] - [facility] [place] 5 08:57:09 Sensorine ural hearing loss of bilateral ears 610932603 Active 2024 VIRGIL COPELAND [address] [place] [address],[place] [address], [place], [address] , [facility] - [facility] [place] 5 09:30:44 Problem Notes None recorded. Procedures Surgical History Date Name Laterality Status Provider Name and Address Organization Details Recorded Time 10/19/19 25 Comp Audio with Tymps - 87872 & 59648 completed VIRGIL COPELAND 100 [facility],[place] [address], [place], [address], [facility] - [facility] [place] 10/19/2024 09:30:38 repair of retina for retinal detachment completed Lyric Baker [place] - [facility] 10/19/2024 08:40:33 hernia repair completed Lyric Baker [facility] 10/19/2024 08:40:43 procedure on shoulder completed Lyric Baker [facility] 10/19/2024 08:40:48 cardioversion completed Lyric Baker [facility] 10/19/2024 08:40:56 Imaging Results Imaging Date [...] mg tablet 12/17 completed Medicati on ID: [id number] D uration Value: 90 Brand Name: lisinopr il Send Method: E-Prescr ibed Sub s Allowed: subs OK Medic ationGen ericName : lisinopr il Not Available Not Available Not Available Synthroid 100 mcg tablet TAKE 1 TABLET DAILY active Not Available Not Available No t Available amlodipin e 2.5 mg tablet 10/19 completed Medicati on ID: [id number] B rand Name: amlodipi ne Send Method: [...] mg tablet 12/17 [place] Medicati on ID: [id number] Br and Name: lisinopr il Send Method: E-Prescr ibed Sub s Allowed: subs OK Medic ationGen ericName : lisinopr il Not Available Not Available Not Available lisinopri l 40 mg tablet TAKE 1 TABLET DAILY active Not Available Not Available No t Available Baby Aspirin 12/17 completed Medicati on ID: [id number] Br and Name: baby aspirin Send Method: E-Prescr ibed Sub s Allowed: subs OK Medic ationGen ericName : baby aspirin Not Available Not Available Not Available hydrochlo rothiazid e 12.5 mg tablet 12/17 completed Medicati on ID: [id number] Br and Name: hydrochl orothiaz memo Send [...] Details Last Updated DateTime 10/19/2024 180.34 cm 40440.59 g Lyric Baker [place] [facility] 10/19/2024 08:44:04 Social History None recorded. Functional Status None recorded. Mental Status None recorded. Family History Nothing Reported. Medical History Condition Response Thyroid Problems Y Hypertension Y Sleep Disorder Y High Cholesterol Y Past Encounters Encounter ID Performer Location Encounter Start Date Encounter Closed Date Diagnosis/Indication Diagnosis SNOMED-CT Code Diagnosis ICD10 Code Diagnosis Note [id number] BRENDAN YOUNGBLOOD MD [facility] [address] [place] [address] 10/19/2024 08:35:22 10/19/2024 09:54:35 Impacted cerumen of bilateral ears [id number] 820306 H61.23 Suggested 3 drops distilled vinegar in each ear twice weekly to prevent the buildup of cerumen Obstructiv e sleep apnea syndrome 39755705 G47.33 Patient appears compliant with CPAP and benefiting from the device. 1 year follow-up with [place] for CPAP compliance Deviated nasal septum 12 9054905 J34.2 asymptomat ic Abnormal a uditory perception 99871839 H93.293 audio reviewed there is mild sensorineu [...] Sensorineu ral hearing loss of bilateral ears 156321155 H90.3 6-month follow-up with [place] for audiometri c testing. [id number] VIRGIL COPELAND [facility] [address] [address] 10/19/2024 09:29:51 10/20/2024 07:42:46 Sensorineural hearing loss of bilateral ears 309501664 H90.3 Audiologic al evaluation results: Right ear: [...] Recorded Advance Directives Directive None Recorded Payers Insurance Date Sequence Insurance Name Policy Number Policy Doyle Covered Member ID Doyle Member ID Guarantor Name 10/20/2024 2 [facility] [id number] Abner Solorio [id number] Abner Solorio Sr 10/19/2024 1 MEDICARE [place]: [employer] Abner Solorio Sr [id number] Abner Solorio Sr Notes Date Note Type Note Provider Name and Address Organization Details Recorded Time 10/19/2024 text/html Using CPAP at least 7 hours per night. Feeling resting and notes difficulty if not usingNo recent audioNo tinnitus or vertigoWife notes he has some HL especially in background situations. Denies any difficulty with nasal obstruction despite known septal deviation BRENDAN HARPER MD [address] [place] [address], [place], [address], [facility] - [facility] 10/19/2024 09:52:23
[2024-12-28 07:20] LABS: MANUAL DIFF FLAG NO
[2024-12-28 08:01] LABS: Basophils Absolute Auto 0.1 X10*3/uL (0.0-0.2); Basophils Percent Auto 0.8 % (0-2); Eosinophils Absolute Auto 0.1 X10*3/uL (0.0-0.4); Eosinophils Percent Auto 2.2 % (0-4); Hematocrit 41.6 % (42.0-52.0); Hemoglobin 15.1 g/dl (14.0-18.0); Imm Gran Abs Auto 0.02 X10*3/uL (0.00-0.03); Imm Gran Pct Auto 0.3 % (0.0-0.4); Lymphocytes Percent Auto 32.2 % (20-40); Mean Corpuscular HGB Conc 36.3 g/dl (31.0-36.0); Mean Corpuscular Hemoglobin 33.5 pg (27.0-33.0); Mean Corpuscular Volume 92.2 fL (80.0-98.0); Mean Platelet Volume 9.1 fL (9.4-12.4); Monocytes Absolute Auto 0.7 X10*3/uL (0.1-1.2); Monocytes Percent Auto 11.5 % (2-11); Neutrophils Absolute Auto 3.3 x10*3/uL (2.0-8.3); Platelet Count 171 X10*3/uL (160-400); Red Blood Count 4.51 X10*6/uL (4.60-5.80); Red Cell Distribution Width 12.4 % (11.0-16.0); White Blood Count 6.3 X10*3/uL (4.8-10.8)
[2024-12-28 08:27] LABS: Alanine Aminotransferase 26 U/L (0-40); Albumin Level 4.3 g/dL (3.5-5.0); Alkaline Phosphatase 52 U/L (39-117); Anion Gap 12 (12-20); Aspartate Amino Transferase 25 U/L (5-37); Bilirubin Total 0.7 mg/dL (0.0-1.0); Blood Urea Nitrogen 17 mg/dL (9-16); Calcium 9.1 mg/dL (8.4-10.2); Carbon Dioxide 26 mmol/L (22-29); Chloride 104 mmol/L (96-108); Cholesterol 100 mg/dL (<200); Estimated Glomerular Filt Rate > 60; Glucose Random 122 mg/dL (60-115); HDL Cholesterol 46 mg/dL (>40); LDL Cholesterol Calculated 44 mg/dL (<100); Potassium 4.3 mmol/L (3.3-5.1); Sodium 138 mmol/L (135-145); Total Protein 6.7 g/dL (6.5-8.0); Triglycerides 53 mg/dL (<150)
[2024-12-28 08:43] LABS: Free T4 (Free Thyroxine) 1.26 ng/dL (0.71-1.85); Thyroid Stimulating Hormone 4.92 uIU/mL (0.32-4.0)
[2024-12-28 09:00] LABS: Folate 9.2 ng/mL (> or = 4.0); Vitamin B12 458 pg/mL (200-900)
[2024-12-28 09:06] LABS: Microalbum/Creatinine Ratio Ur 115.2 ug/mg cr (<30)
== END 2024-12-28 06:55 | disposition home or self-care (01) ==
LOC: HO.LAB 06:54
PROVIDERS: PCP Internal Medicine; Visit Provider Internal Medicine
DX: E11.65 Type 2 diabetes mellitus with hyperglycemia (principal); E78.00 Pure hypercholesterolemia, unspecified; E03.9 Hypothyroidism, unspecified
CPT/HCPCS: 36415; 80053; 80061; 82043; 82570; 82607; 82746; 84439; 84443; 85025

== ENCOUNTER → 2025-02-13 08:54 | Outpatient (REF) | payer MEDICARE, OTHER, SELFPAY ==
--- NOTE | 2025-02-13 08:56 | CA_ITS ---
Transthoracic Echocardiogram Patient (Last, First, Middle): Abner Solorio, Gender: Male Date of : 1950 Age: 74 Procedure Date: 02/13/2025 Procedure Type: Transthoracic Echocardiogram Location: OP Height: 180.34 cm Weight: 83.92 kg BSA: 2.04 m2 Heart Rate: bpm BP: 118 / 60 mmHg Parish Visitor: Referring MD: Keith Contreras MD Symptoms: I35.0 - Nonrheumatic aortic (valve) stenosis Study Quality: Good ECG Rhythm: Sinus Conclusions: - he left ventricular systolic function is normal. The calculated ejection fraction is 59% by biplane method. - There is moderate calcification of the aortic valve. There is moderate aortic valve stenosis. Findings Left Ventricle Normal left ventricular cavity size. There is mildly increased left ventricular wall thickness. The left ventricular systolic function is normal. The calculated ejection fraction is 59% by biplane method. There is no evidence of regional wall motion abnormalities. Evidence suggests grade I (mild) diastolic dysfunction. Right Ventricle Mildly increased right ventricular cavity size. There is normal right ventricular systolic function. Atria The left atrium is moderately dilated. The right atrium is mildly dilated. Aortic Valve There is moderate calcification of the aortic valve. There is moderate aortic valve stenosis. There is trace (trivial) aortic valve regurgitation. Dimensionless index 0.3. Mitral Valve The mitral valve appears normal. There is trace mitral valve regurgitation. There is no mitral valve stenosis. Pulmonic Valve The pulmonic valve is likely normal. Tricuspid Valve There is trace tricuspid valve regurgitation. There is no evidence of pulmonary hypertension. Great Vessels The asc aorta is normal in size. Venous The inferior vena cava is normal in size and collapses less than 50% with inspiration. Pericardium/Pleural There is no evidence of pericardial effusion. Prior Study Comparison Changes noted compared to prior study dated: 08/15/2023. Progression of aortic stenosis. Measurements 2D Linear Measurements Ao Root: 3.60 2.1-3.5 cm LVOT Diam: 2.10 3.0+(-)1.3 cm 2D Systolic Function EF 4C: 56.40 >55% EF 2C: 63.70 >55% EF BiP: 59.40 >55% Mitral Valve MV Pk E: 0.70 MV PK A: 1.05 MV Decel Time: 326.00 E/A: 0.70 E'Lateral: 7.07 E'Medial: 5.66 E/E' Med: 12.40 E/E' Lat: 9.90 PHT: 95.00 MVA PHT: 2.32 Decel [place]: 2.16 Aortic Valve AoV Pk Vahe: 2.81 AoV Mn Vahe: 1.96 AoV VTI: 0.78 AoV Pk Grad: 32.00 Aov Mn Grad: 18.00 LISA Cont.VTI: 1.04 LVOT LVOT Pk Vahe: 0.85 LVOT Mn Vahe: 0.52 LVOT VTI: 0.23 LVOT Pk Grad: 3.00 LVOT Mn Grad: 1.00 LVOT Diam: 2.10 LVOT Area: 3.46 Diastolic Function MV Pk E: 0.70 MV Pk A: 1.05 E/A: 0.70 E'Medial: 5.66 E/E' Med: 12.40 E' Laterial: 7.07 E/E' Lat: 9.90 Right Ventricle TAPSE (mm): 30.00 TVS' Vahe: 12.00 Tricuspid Valve TR Pk Vahe: 1.90 TR Pk Grad: 14.00 RA Press: 8.00 RVSP: 22.00 Great Vessels Aorta Ao Root-2D: 3.60 2.0-3.7 cm Ao Asc: 3.50 2.1-3.4 cm Pulmonary Valve PV Pk Vahe: 1.10 Peak PV Grad: 5.00 Updated in Other Vendor System with Status of Final Keith Contreras MD electronically signed on 02/13/2025 11:56:14 AM with status of Final
--- OUTSIDE RECORDS SUMMARY | 2025-02-13 09:27 | XMS_ITS | Data Portability ---
Author Organization [place] - [facility], Allergy Address [address] [place] [address] Care Team Providers Care Computer Systems Auditor Name Role Phone CHRIS CAMACHO Primary Care Provider [phone] Assessment Encounter Date Assessment Date Assessment LastModified [...] Organization Details Recorded Time Deviated nasal septum 096160639 Active 2014 Nasal septal deviation ; Note: Date Diagnosed : 10/26/2014 10:29 AM (470) Not Available [facility] 4 03:28:45 Impacted cerumen of bilateral ears 95057984517 02814 Active 2017 Impacted cerumen, bilateral ; Note: Date Diagnosed : 10/23/2017 1:33 PM (H61.23) Not Available [facility] 4 03:28:45 Obstructi ve sleep apnea syndrome 01824380 Active 2020 LALA; Note: Date Diagnosed : 10/26/2014 10:29 AM (327.23) ; Start Date : 5 Obstruc tive sleep apnea (adult) (pediatri c); Note: Date Diagnosed : 05/21/2021 3:15 PM (G47.33) Not Available [facility] 4 03:28:45 Abnormal auditory perceptio n 91816511 Active 2024 BRENDAN YOUNGBLOOD MD [address] [place] [address],[place] [address], [place], [address] , [facility] - [facility] [place] 5 08:57:03 Abnormal auditory perceptio n 07072637 Active 2024 BRENDAN YOUNGBLOOD MD [address] [place] [address],[place] [address], [place], [address] , [facility] - [facility] [place] 5 08:57:09 Sensorine ural hearing loss of bilateral ears 290987019 Active 2024 VIRGIL COPELAND [address] [place] [address],[place] [address], [place], [address] , [facility] - [facility] [place] 5 09:30:44 Problem Notes None recorded. Procedures Surgical History Date Name Laterality Status Provider Name and Address Organization Details Recorded Time 10/19/19 25 Comp Audio with Tymps - 66699 & 02022 completed VIRGIL COPELAND 100 [facility],[place] [address], [place], [address], [facility] - [facility] [place] 10/19/2024 09:30:38 repair of retina for retinal detachment completed Lyric Baker [place] [facility] 10/19/2024 08:40:33 hernia repair completed Lyric Baker [facility] 10/19/2024 08:40:43 procedure on shoulder completed Lyric Baker [facility] 10/19/2024 08:40:48 cardioversion completed Lyric Baker [facility] 10/19/2024 08:40:56 Imaging Results None recorded. Procedure Notes None recorded. Medical Equipment None [...] mg tablet 12/17 completed Medicati on ID: [id number] D uration Value: 90 Brand Name: lisinopr il Send Method: E-Prescr ibed Sub s Allowed: subs OK Medic ationGen ericName : lisinopr il Not Available Not Available Not Available Synthroid 100 mcg tablet TAKE 1 TABLET DAILY active Not Available Not Available No t Available amlodipin e 2.5 mg tablet 10/19 completed Medicati on ID: [id number] B rand Name: amlodipi ne Send Method: [...] mg tablet 12/17 completed Medicati on ID: [id number] Br and Name: lisinopr il Send Method: E-Prescr ibed Sub s Allowed: subs OK Medic ationGen ericName : lisinopr il Not Available Not Available Not Available lisinopri l 40 mg tablet TAKE 1 TABLET DAILY active Not Available Not Available No t Available Baby Aspirin 12/17 completed Medicati on ID: [id number] Br and Name: baby aspirin Send Method: E-Prescr ibed Sub s Allowed: subs OK Medic ationGen ericName : baby aspirin Not Available Not Available Not Available hydrochlo rothiazid e 12.5 mg tablet 12/17 completed Medicati on ID: [id number] Br and Name: hydrochl orothiaz memo Send [...] Details Last Updated DateTime 10/19/2024 180.34 cm 54647.59 g Lyric Baker [place] [facility] 10/19/2024 08:44:04 Social History None recorded. Functional Status None recorded. Mental Status None recorded. Family History Nothing Reported. Medical History Condition Response Thyroid Problems Y High Cholesterol Y Sleep Disorder Y Hypertension Y Past Encounters Encounter ID Performer Location Encounter Start Date Encounter Closed Date Diagnosis/Indication Diagnosis SNOMED-CT Code Diagnosis ICD10 Code Diagnosis Note [id number] BRENDAN YOUNGBLOOD MD [facility] [address] [address] 10/19/2024 08:35:22 10/19/2024 09:54:35 Impacted cerumen of bilateral ears 8058782154 958905 H61.23 Suggested 3 drops distilled vinegar in each ear twice weekly to prevent the buildup of cerumen Obstructiv e sleep apnea syndrome 69179687 G47.33 Patient appears compliant with CPAP and benefiting from the device. 1 year follow-up with [place] for CPAP compliance Deviated nasal septum 12 2244274 J34.2 asymptomat ic Abnormal a uditory perception 68959247 H93.293 audio reviewed there is mild sensorineu [...] Sensorineu ral hearing loss of bilateral ears 278612278 H90.3 6-month follow-up with [place] for audiometri c testing. [id number] VIRGIL COPELAND [facility] [address] [address] 10/19/2024 09:29:51 10/20/2024 07:42:46 Sensorineural hearing loss of bilateral ears 114399139 H90.3 Audiologic al evaluation results: Right ear: Normal sloping to a moderate sensorineu ral hearing loss with excellent word recognitio n. Left ear: Normal sloping to a mild sensorineu ral hearing loss with excellent word recognitio n. Tympanomet ry: Right Ear:Type A Left Ear:Type A Health Concerns Section Related Observation LastModified by Organization Detai ls LastModified Time None Recorded Concern Status LastModified by Organization Details LastModified Time None Recorded Advance Directives Directive None Recorded Payers Insurance Date Sequence Insurance Name Policy Number Policy Doyle Covered Member ID Doyle Member ID Guarantor Name 10/20/2024 2 [facility] [id number] 8 Abner Solorio [id number] Abner Solorio Sr 10/19/2024 1 MEDICARE B-[place]: [employer] Abner Solorio Sr [id number] Abner Solorio Sr Notes Date Note Type Note Provider Name and Address Organization Details Recorded Time 10/19/2024 text/html Using CPAP at least 7 hours per night. Feeling resting and notes difficulty if not usingNo recent audioNo tinnitus or vertigoWife notes he has some HL especially in background situations. Denies any difficulty with nasal obstruction despite known septal deviation BRENDAN HARPER MD [address] [place] [address], [address], [facility] - [facility] 10/19/2024 09:52:23
== END ==
LOC: HO.CARD 08:54
PROVIDERS: PCP Internal Medicine; Visit Provider Internal Medicine
DX: I35.0 Nonrheumatic aortic (valve) stenosis (principal)
CPT/HCPCS: 93306

== ENCOUNTER → 2025-02-13 08:56 | Outpatient (BNV) | payer MEDICARE, OTHER, SELFPAY | PROVIDERS: PCP Internal Medicine; Visit Provider Internal Medicine | DX: I35.0 Nonrheumatic aortic (valve) stenosis (principal); I35.8 Other nonrheumatic aortic valve disorders; I51.89 Other ill-defined heart diseases | CPT/HCPCS: 93306 ==

== ENCOUNTER 2025-03-13 09:26 | Outpatient (AMB) | payer MEDICARE, OTHER, SELFPAY ==
--- OUTSIDE RECORDS SUMMARY | 2023-05-05 11:35 | XMS_ITS | Encounter Summary ---
Author Organization [facility] Address [address] [facility] [address] [place] [address] Phone Care Team Providers Care Construction Engineering Manager Name Role Phone Soraya Escudero MD Primary Care Provider [phone] Keith Contreras MD Unavailable Encounter Details Date Type Department Care Team (Late st Contact Info) Description 05/05/2023 11:35 AM EDT Hospital Encounter [facility] [address] [place] [address] Philly Lira FNP [address] [place] [phone] [email or web address] Social History Tobacco Use Types Packs/Day Years [...] AM EDT Office Visit [facility] [address] [place] [address] Coty Ca MD [address] [place] [phone] [email or web address] documented as of this encounter Procedures Procedure [...] originally createdby Winston Andres. us Philly Lira LOCK EXPERT IMG XR LOWER EXTREMITY Araceli l Result documented in this encounter Visit Diagnoses Not on filedocumented in this encounter Care Teams Construction Engineering Manager Relationship Specialty Start Date End Date Po, Soraya Ward MD [address] [place] [address] [address] [place] [address] PCP - General Internal Medicine 11/14/22 Keith Contreras MD [address] [place] [id number] Armature Repairer Cardiology 11/14/22 documented as of this encounter Additional Source Comments The information contained in this document represents components of the legal health record. It is not the complete legal health record.[facility]
[2025-03-13 09:32] VITALS: BP 118/60; PULSE 58; BMI 25.5
--- NOTE | 2025-03-13 09:32 | A.OFFVIS_ITS ---
Vital Signs 03/13/25 09:32 Height 5 ft 11 in Weight 182 lb 15.739 oz BMI 25.5 BP 118/60 Blood Pressure Location Lt brachial Position Sitting Pulse 58 Pulse Source Monitor Intake Visit Reasons: r/s 03/01/25 6 mos followup Allergies No Known Allergies (No Known Allergies*) Allergy (Verified 11/30/24 08:26) Medication List - Last Reconciled 03/13/25 by Keith Contreras MD amlodipine 10 mg PO .PM apixaban (Eliquis) 5 mg PO BID atorvastatin 40 mg PO DAILY blood sugar diagnostic (FreeStyle Lite Strips) As directed check the BID cyanocobalamin (vitamin B-12) 1,000 mcg PO DAILY flecainide 50 mg PO Q12H levothyroxine 112 mcg PO DAILY lisinopril 40 mg PO DAILY metformin 1,000 mg PO BIDWMEAL metoprolol succinate ER 50 mg PO DAILY HPI Comments Details: Abner returns for follow-up regarding atrial flutter. In the past, he underwent cardioversion for symptomatic atrial flutter. On beta- blockers/flecainide. Also on Eliquis. Overall, he is active with no limitations. No cardiac symptoms whatsoever. 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 drug Type 2 diabetes mellitus with unspecified complications History of cardioversion (~02/2019) Paroxysmal atrial flutter Retinal artery occlusion Thrombocytopenia Diabetic nephropathy Hypothyroid Obstructive sleep apnea Hypercholesterolemia Hypertension Type 2 diabetes mellitus with hyperglycemia Surgical History S/P Mohs surgery for basal cell carcinoma History of facial surgery History of shoulder surgery History of hernia surgery No pertinent past surgical history Family History Brother Cardiomyopathy Social History Housing: House Alcohol intake: current Alcohol intake frequency: a few times a month Comment: 2-3 x a week 2 beers Patient Tobacco Use Status: Never used Tobacco e-Cigarette/Vaping Use: Never Used Second Hand Smoke Exposure: No service: No Current occupational status: retired Cognitive needs: No Hearing needs: No Vision needs: Yes (Glasses) Review of Systems Const Denies weakness ENT Denies dizziness Card Denies chest pain, Denies chest pain with activity, Denies syncope, Denies rapid heart rate, Denies pedal edema, Denies edema, Denies leg edema, Denies lightheadedness, Denies palpitations, Denies dyspnea, Denies dyspnea on exertion and Denies orthopnea Resp Denies cough, Denies dyspnea and Denies dyspnea on exertion GI Denies hematochezia and Denies change in stool character Musc Denies abnormal gait, Denies muscle cramps, Denies muscle weakness, Denies numbness, Denies radiating pain into limb and Denies tingling Neuro Denies abnormal gait, Denies dizziness, Denies syncope, Denies numbness, Denies tingling and Denies weakness Endo Denies palpitations Physical Exam Vital Signs: Last Vital Signs Pulse 58 03/13/25 09:32 BP 118/60 03/13/25 09:32 BMI result Body Mass Index 25.5 Const General: comfortable and no acute distress Orientation/consciousness: patient oriented x3 HEENT Other: Unremarkable Head: Yes normal to inspection Neck Neck: Yes normal visual inspection Chest Chest palpation & inspection: normal inspection of the chest Resp Auscultation: clear to auscultation bilaterally Cardio Palpation: normal PMI Heart sounds: S1 normal heart sound present, S2 normal heart sound present, no gallops, Murmur heart sound present systolic III/ and no rubs GI Palpation (GI): Soft to palpation Back/Spine/Pelvis Other: unremarkable Skin General skin exam: no rashes or lesions noted Neuro General: patient oriented x3 Extrem General: Yes normal to inspection Psych Mental Status: mental status grossly normal Office Procedures EKG Details: EKG with sinus rhythm at 58/Min; no ischemic findings; [place]. [address]-Mrelupprpvloqgsrg, Complete Assessment & Plan Assessment & Plan (1) Paroxysmal atrial flutter: Code(s): I48.92 - Unspecified atrial flutter Category: Medical Plan: Continue flecainide and beta-blockers. Continue anticoagulation. Cardiac testing- Echocardiogram 2022 with LVEF of 60-65%. Myocardial perfusion imaging study 2019 with likely normal perfusion. (2) Encounter for monitoring anti-arrhythmic therapy: Code(s): Z51.81 - Encounter for therapeutic drug level monitoring; Z79.899 - Other halfway (current) drug therapy Category: Medical Plan: Stable on Flecainide for many years. No specific concerns. (3) Nonrheumatic aortic (valve) stenosis: Code(s): I35.0 - Nonrheumatic aortic (valve) stenosis Category: Medical Plan: Echocardiogram with moderate aortic valve calcification and moderate stenosis. We discussed about this today. Advised about symptoms of aortic stenosis and what to look out for. We will recheck echocardiogram in one year. Eventual TAVR candidate. (4) Essential hypertension: Code(s): I10 - Essential (primary) hypertension Category: Medical Plan: Stable. Continue lisinopril, amlodipine. (5) Type 2 diabetes mellitus with unspecified complications: Code(s): E11.8 - Type 2 diabetes mellitus with unspecified complications Category: Medical Plan: On metformin. Last Hemoglobin A1c 6%. Seems controlled. (6) Obstructive sleep apnea: Code(s): G47.33 - Obstructive sleep apnea (adult) (pediatric) Category: Medical Plan: CPAP. Plan Discussion Notes I discussed with the patient the progression of his aortic valve stenosis and the importance of regular monitoring through echocardiograms. We talked about the potential need for valve replacement if symptoms such as significant shortness of breath develop. The patient was advised to report any new symptoms and to maintain regular follow-up appointments. Patient was informed and verbally consented to the use of an ambient scribe for clinic note documentation during this visit. Patient Instructions: - Continue with annual echocardiograms to monitor valve stenosis. - Watch for symptoms like increased shortness of breath or changes in exercise tolerance. - Schedule and attend follow-up appointments every six months. Coding Level of Care Code Est Pt Level 4 (60696) Complex EM visit Add On G2211 Diagnoses Paroxysmal atrial flutter I48.92 Encounter for monitoring anti-arrhythmic therapy Z51.81; Z79.899 Nonrheumatic aortic (valve) stenosis I35.0 Essential hypertension I10 Type 2 diabetes mellitus with unspecified complications E11.8 Obstructive sleep apnea G47.33 CPT Codes EKG - CPT: 78714-Acclowprplwhwqtsg, Complete ([id number])
--- OUTSIDE RECORDS SUMMARY | 2025-03-13 09:55 | XMS_ITS | Clinical Summary ---
Author Organization [facility] Address [address] [place] [address] Care Team Providers Care Fieldwork Coordinator Name Role Phone Pcp, No Primary Care [...] 54 02/05/2021 12:20 PM EDT Temperature 36.6 C (97.8 F) 02/05/2021 12:20 PM EDT Respiratory Rate - - Oxygen Saturation 96% [...] topic Insurance MEDICARE PART A & B [facility] Care Teams Fieldwork Coordinator Relationship Specialty Start Date End Date Pcp, No [address] [place] [address] PCP - General 01/09/21
--- OUTSIDE RECORDS SUMMARY | 2025-03-13 09:55 | XMS_ITS | Patient Health Record ---
Author Organization [facility] Address [address] [place] Romero [address] Care Team Providers Care Electronic Instrument Trades Worker Name Role Phone Po Soraya SCHMIDT Primary Care Provider Marcus Anthony [phone] Reason For Referral No Information Medications Medication SIG (Take, Route, Frequency, Duration) Notes Start Date End Date Status Lisinopril 10 MG 1 tablet Orally Once a day Active hydroCHLOROthiazide 25 MG 1 tablet Orall y Once a day Active Aspirin Adult Low Dose 81 MG 1 tablet Or ally Once a day Active Atorvastatin Calcium 10 MG 1 tablet Oral ly Once a day Active metFORMIN HCl 500 MG 1 tablet with meals Orally Twice a day Active Immunizations Vaccine Route Administration Date Status Comme nts Flu vaccine no Preserv 3 and > Unknown 06/24/2015 Admin istered Problems Problem Type SNOMED Code ICD Code Onset Dates Problem Status W/U Status Risk Notes Problem 009054439 Encounter for screening for malignant neoplasm of colon (Z12.11) Active confirmed Problem Screening for malignant neoplasm of rectum (523949998) Encounter for screening for malignant neoplasm of rectum (Z12.12) Active confirmed Problem 33993017 Preprocedural examination (Z01.818) Active confirmed Problem 750574197 Long-term use of aspirin therapy (Z79.82) Active confirmed Plan Of Treatment Future Test Test Name Order Date COLONOSCOPY 05/29/2016 Insurance Providers Payer Name Payer Address Payer Phone Subscriber Number Group Number Insured Name Patient Relationship to Insured Coverage Start Date Coverage End Date MEDICARE OF [place] [address] [facility] [address] [id number] VIVIAN CARUSO Self - patient is the insured [facility] INDEMNITY [address] [place] [address] [id number] VIVIAN CRAUSO Self - patient is the insured Medical (General) History Medical History History ICD Code NIDDM Hypertension Denies [place],CVA,Lung disease,renal disease Hperlipidemia Negative colonoscopy in 2004 Dr. Wilkerson--diverticulosis, internal hemorrhoids Sleep apnea--uses CPAP Surgical History Surgery Date(Month/Year) Right shoulder Right inguinal hernia Right eye detached retina/retinal occlus ion Facial surgery--left zygomatic arch
--- OUTSIDE RECORDS SUMMARY | 2025-03-13 09:55 | XMS_ITS | Data Portability ---
Author Organization [place] [facility] Address [address] [place] [address] Care Team Providers Care Coat Hanger Shaper Machine Operator Name Role Phone CHRIS CAMACHO Primary Care [...] Organization Details Recorded Time Deviated nasal septum 222499663 Active 2014 Nasal septal deviation ; Note: Date Diagnosed : 10/26/2014 10:29 AM (470) Not Available [facility] 4 03:28:45 Impacted cerumen of bilateral ears 04416343269 40237 Active 2017 Impacted cerumen, bilateral ; Note: Date Diagnosed : 10/23/2017 1:33 PM (H61.23) Not Available [facility] 4 03:28:45 Obstructi ve sleep apnea syndrome 48855639 Active 2020 LALA; Note: Date Diagnosed : 10/26/2014 10:29 AM (327.23) ; Start Date : 5 Obstruc tive sleep apnea (adult) (pediatri c); Note: Date Diagnosed : 05/21/2021 3:15 PM (G47.33) Not Available [facility] 4 03:28:45 Abnormal auditory perceptio n 93638138 Active 2024 BRENDAN YOUNGBLOOD MD [address] [place] [address],[place] [address], [place], [address] , [facility] 5 08:57:03 Abnormal auditory perceptio n 92471988 Active 2024 BRENDAN YOUNGBLOOD MD [address] [place] [address],[place] [address], [place], [address] , [facility] 5 08:57:09 Sensorine ural hearing loss of bilateral ears 586679812 Active 2024 VIRGIL COPELAND [address] [place] [address],[place] [address], [place], [address] , [facility] 5 09:30:44 Problem Notes None recorded. Procedures Surgical History Date Name Laterality Status Provider Name and Address Organization Details Recorded Time 10/19/19 25 Comp Audio with Tymps - 22907 & 88114 completed VIRGIL COPELAND [address] [facility],[place] [address], [place], [address], [facility] 10/19/2024 09:30:38 repair of retina for retinal detachment completed Lyric Baker [place] [facility] 10/19/2024 08:40:33 hernia repair completed Lyric Baker [facility] 10/19/2024 08:40:43 procedure on shoulder completed Lyric Baker [facility] 10/19/2024 08:40:48 cardioversion completed Lyric Baker [facility] 10/19/2024 08:40:56 Imaging Results None recorded. [...] mg tablet 12/17 completed Medicati on ID: [id number] D uration Value: 90 Brand Name: lisinopr il Send Method: E-Prescr ibed Sub s Allowed: subs OK Medic ationGen ericName : lisinopr il Not Available Not Available Not Available Synthroid 100 mcg tablet TAKE 1 TABLET DAILY active Not Available Not Available No t Available amlodipin e 2.5 mg tablet 10/19 completed Medicati on ID: [id number] B rand Name: amlodipi ne Send Method: [...] mg tablet 12/17 [place] Medicati on ID: [id number] Br and Name: lisinopr il Send Method: E-Prescr ibed Sub s Allowed: subs OK Medic ationGen ericName : lisinopr il Not Available Not Available Not Available lisinopri l 40 mg tablet TAKE 1 TABLET DAILY active Not Available Not Available No t Available Baby Aspirin 12/17 completed Medicati on ID: [id number] Br and Name: baby aspirin Send Method: E-Prescr ibed Sub s Allowed: subs OK Medic ationGen ericName : baby aspirin Not Available Not Available Not Available hydrochlo rothiazid e 12.5 mg tablet 12/17 completed Medicati on ID: [id number] Br and Name: hydrochl orothiaz memo Send [...] Details Last Updated DateTime 10/19/2024 180.34 cm 75476.59 g Lyric Baker [place] [facility] 10/19/2024 08:44:04 Social History None recorded. Functional Status None recorded. Mental Status None recorded. Family History Nothing Reported. Medical History Condition Response High Cholesterol Y Thyroid Problems Y Sleep Disorder Y Hypertension Y Past Encounters Encounter ID Performer Location Encounter Start Date Encounter Closed Date Diagnosis/Indication Diagnosis SNOMED-CT Code Diagnosis ICD10 Code Diagnosis Note [id number] BRENDAN YOUNGBLOOD MD [facility] [address] [address] 10/19/2024 08:35:22 10/19/2024 09:54:35 Impacted cerumen of bilateral ears 7218057430 486631 H61.23 Suggested 3 drops distilled vinegar in each ear twice weekly to prevent the buildup of cerumen Obstructiv e sleep apnea syndrome 14502033 G47.33 Patient appears compliant with CPAP and benefiting from the device. 1 year follow-up with [place] for CPAP compliance Deviated nasal septum 12 4332265 J34.2 asymptomat ic Abnormal a uditory perception 54789512 H93.293 audio reviewed there is mild sensorineu [...] Sensorineu ral hearing loss of bilateral ears 332130843 H90.3 6-month follow-up with [place] for audiometri c testing. [id number] VIRGIL COPELAND [facility] [address] [address] 10/19/2024 09:29:51 10/20/2024 07:42:46 Sensorineural hearing loss of bilateral ears 311389326 H90.3 Audiologic al evaluation results: Right ear: [...] Doyle Member ID Guarantor Name 10/20/[address] [facility] [id number] Abner Solorio [id number] Abner Solorio Sr 10/19/2024 1 MEDIC[place] [employer] Abner Solorio Sr [id number] Abner Solorio Sr Notes Date Note Type Note Provider Name and Address Organization Details Recorded Time 10/19/2024 text/html Using CPAP at least 7 hours per night. Feeling resting and notes difficulty if not usingNo recent audioNo tinnitus or vertigoWife notes he has some HL especially in background situations. Denies any difficulty with nasal obstruction despite known septal deviation BRENDAN HARPER MD [address] [place] [address], [address], [facility] 10/19/2024 09:52:23
== END 2025-03-13 10:00 | disposition home or self-care (01) ==
LOC: HO.HCS 09:27
PROVIDERS: PCP Internal Medicine; Visit Provider Internal Medicine
DX: I48.92 Unspecified atrial flutter (principal); Z51.81 Encounter for therapeutic drug level monitoring; Z79.899 Other long term (current) drug therapy; I35.0 Nonrheumatic aortic (valve) stenosis; I10 Essential (primary) hypertension; E11.8 Type 2 diabetes mellitus with unspecified complications; G47.33 Obstructive sleep apnea (adult) (pediatric)
CPT/HCPCS: 93010; 99214; G2211

== ENCOUNTER → 2025-03-13 09:26 | Outpatient (BNVA) | payer MEDICARE, OTHER, SELFPAY | PROVIDERS: PCP Internal Medicine; Visit Provider Internal Medicine | DX: I35.0 Nonrheumatic aortic (valve) stenosis (principal); I10 Essential (primary) hypertension; I48.92 Unspecified atrial flutter; E11.8 Type 2 diabetes mellitus with unspecified complications; G47.33 Obstructive sleep apnea (adult) (pediatric); Z51.81 Encounter for therapeutic drug level monitoring; Z79.84 Long term (current) use of oral hypoglycemic drugs; Z79.01 Long term (current) use of anticoagulants; Z79.899 Other long term (current) drug therapy | CPT/HCPCS: 93005; 99212 ==

== ENCOUNTER 2025-05-31 07:00 | Outpatient (REF) | payer MEDICARE, OTHER, SELFPAY ==
--- OUTSIDE RECORDS SUMMARY | 2023-05-05 11:35 | XMS_ITS | Encounter Summary ---
Author Organization [facility] Address [address] [facility] [address] [place] [phone] Phone Care Team Providers Care Sub Acute Care Nurse Name Role Phone Soraya Escudero MD Primary Care Provider [phone] Keith Contreras MD Unavailable [phone] Encounter Details Date Type Department Care Team (Late st Contact Info) Description 05/05/2023 11:35 AM EDT Hospital Encounter [facility] [address] [place] [id number] Philly Lira FNP [address] [place] [phone] [email or web address] Social History Tobacco Use Types Packs/Day Years Used Date Smoking Tobacco: Never Smokeless Tobacco: Never Alcohol Use Standard Drinks/Week Comments Not Currently 0 (1 standard drink = 0.6 oz pur e alcohol) occasional Education Answer Date Recorded Are you interested in more education? Not on zulay e 12/20/2022 Are you concerned about learning? Not on file 12/20/2022 No 12/20/2022 No 12/20/2022 Digital Access Answer Date Recorded No 01/20/2023 No 01/20/2023 Reliable internet access at home? Not on file 01/20/2023 Device with a working camera? Not on file Sex and Gender Information Value Date Recorded Sex Assigned at Not on file Legal Sex Male 11:36 AM EST Gender Identity Not on file Sexual Orientation Not on file documented as of this encounter Plan of Treatment Upcoming Encounters Date Type Department Care Team (Late st Contact Info) Description 11/17/2025 8:40 AM EDT Office Visit [facility] [address] [place] [address] Coty Ca MD [address] [place] [id number] [email or web address] documented as of this encounter Procedures Procedure Name Priority Date/Time Associated Diagnosis Comments XR TIBIA FIBULA 2 VIEWS (LEFT) Urgent/patient waiting 05/05/2023 11:47 AM EDT Contusion of left lower leg, initial encounter documented in this encounter Results * XR Tibia Fibula 2 Views (Left) (05/05/2023 11:47 AM EDT) Anatomical Region Laterality Modality Leg Left Computed Radiogr aphy 05/05/2023 12:4 5 PM EDT Impressions 05/05/2023 1:02 PM EDT No displaced fracture or dislocation. Degenerative changes, as described. ATTESTATION: Adilene Cornejo as teaching physician, have reviewed the images for this case and if necessary edited the report originally created by Winston Andres. Narrative 05/05/2023 1:02 PM EDT XR TIBIA FIBULA 2 VIEWS (LEFT) COMPARISON: None FINDINGS: No displaced fracture. Normal alignment. No lytic or blastic lesion. Partially visualized knee with at least bicompartmental bulky marginal osteophytes and joint space narrowing most pronounced along the lateral tibiofemoral compartment. Degenerative changes of the visualized ankle and proximal forefoot Extensive vascular calcifications. Patellar and Achilles enthesophytes. Well-corticated 4 mm anterior medial subcutaneous mineralization at the level of the mid tibia, likely sequela of fat necrosis. Procedure Note Adilene Fletcher MD - 05/05/2023 XR TIBIA FIBULA 2 VIEWS (LEFT) COMPARISON: None FINDINGS: No displaced fracture. Normal alignment. No lytic or blastic lesion.Partially visualized knee with at least bicompartmental bulky marginalosteophytes and joint space narrowing most pronounced along the lateraltibiofemoral compartment. Degenerative changes of the visualized ankle andproximal forefoot Extensive vascular calcifications. Patellar and Achillesenthesophytes. Well-corticated 4 mm anterior medial subcutaneousmineralization at the level of the mid tibia, likely sequela of fatnecrosis. IMPRESSION: No displaced fracture or dislocation. Degenerative changes, asdescribed. ATTESTATION: I, Adilene Fletcher as teaching physician, have reviewed theimages for this case and if necessary edited the report originally createdby Winston Andres. us Philly Lira ENGINEER[employer]ESSION[employer] IMG XR LOWER EXTREMITY Araceli l Result documented in this encounter Visit Diagnoses Not on filedocumented in this encounter Care Teams Sub Acute Care Nurse Relationship Specialty Start Date End Date Po, Soraya Ward MD [address] [place] [address] [address] [place] [address] PCP - General Internal Medicine 11/14/22 Keith Contreras MD [address] [place] [id number] X Ray Equipment Mechanic Cardiology 11/14/22 documented as of this encounter Additional Source Comments The information contained in this document represents components of the legal health record. It is not the complete legal health record.[facility]
--- OUTSIDE RECORDS SUMMARY | 2025-05-31 07:04 | XMS_ITS | Clinical Summary ---
Author Organization [facility] Address [address] [address] Phone Care Team Providers Care Rolls Mill Operator Name Role Phone Soraya Escudero MD Primary Care Provider [phone] Keith Contreras MD Unavailable [phone] Allergies No known active allergies Medications ELIQUIS 5 mg tablet 2 (two) times a day. 10/31/2022 Active atorvastatin (LIPITOR) 40 MG tablet daily. 10/31/2022 Active lisinopril (PRINIVIL,ZESTRI L) 40 MG tablet daily. 10/31/2022 Act magdy flecainide (TAMBOCOR) 50 MG tablet Take 50 mg by mouth every 12 (twelve) hours. 10/30/2022 Active metoprolol succinate (TOPROL-XL) 50 MG 24 hr tablet Take 50 mg by mouth daily. 09/01/2022 Active levothyroxine (SYNTHROID, LEVOTHROID) 100 MCG tablet Take 100 mcg by mouth daily. 10/12/2022 Active amLODIPine (NORVASC) 10 MG tablet Take 10 mg by mouth daily. Active cyanocobalamin, vitamin B-12, 1000 MCG tablet Take 1,000 mcg by mouth daily. Active FREESTYLE LITE Strp strips USE TO CHECK BLOOD SUGAR TWICE DAILY 03/01/2023 Active metFORMIN (GLUCOPHAGE) 500 MG tablet 2 tab orally in the am, 2 tabs in the pm 11/18/2023 Active Active Problems Problem Noted Date Diagnosed Date Tinea pedis of right foot 11/14/2022 Assessment & Plan (11/18/2023 10:31 AM EDT): Advised to rx with OTC antifungal. Assessment & Plan (11/14/2022 9:55 AM EDT): Advised OTC antifungal. Type 2 diabetes mellitus with peripheral neuropa thy 2014 Assessment & Plan (11/16/2024 9:45 AM EDT): Control good & appears stable based on fasting BG & reported HbA1c. Discussed progressive nature of disease. Continue to work on eating healthy & keeping active. To call or send in BG with problems with glycemic control. Foot & nail care good, minimal tinea pedis, to dry well between toes, use OTC antifungal. Up to date with ophtho. ? Recent umalb/creat? On lisinopril/statin. BP under reasonable control. Will call for labs from PCP. Assessment & Plan (11/18/2023 10:33 AM EDT): Control good & appears stable based on fasting BG & reported HbA1c. Discussed rationale & goals for control. Discussed progressive nature of disease, role of diet/exercise & maintaining control to try to help slow down progression. Continue to work on eating healthy & keeping active. To call or send in BG with problems with glycemic control. Scheduled for ophtho. ? Recent umalb/creat? On lisinopril/statin. BP under reasonable control. Will call for labs from PCP. Assessment & Plan (11/14/2022 9:55 AM EDT): Control good based on fasting BG & reported HbA1c. Discussed progressive nature of disease, role of diet/exercise & maintaining control to try to help slow down progression. Continue to work on eating healthy & keeping active. To call or send in BG with problems with glycemic control. Up to date with ophtho. Advised he use OTC antifungal for tinea pedis. Has labs via PCP, will call for results. BP under reasonable control. senior care current use of oral hypoglycemic drug Hypothyroidism Assessment & Plan (11/16/2024 9:42 AM EDT): Managed by PCP. Clinically euthyroid. Encounters Date Type Department Care Team Description 03/17/2025 Telephone [facility] [address] [place] [address] Cherie Marin MA Eye Exam from Last 3 Months Immunizations Immunization Administration Dates Next Due Hepatitis A, Unspecified 11/11/2012 INFLUENZA, SPLIT VIRUS, TRIVALENT PF 05/10/2020 Influenza High-Dose Trivalen t Preservative Free IM 07/13/2019,06/15/2018,07/10/2016 Influenza Quadrivalent Adjuv anted Preservative Free IM 06/06/2022,07/02/2021 Influenza Trivalent Adjuvant ed Preservative free IM 07/27/2017 Pneumococcal conjugate PCV13 07/28/2017 Pneumococcal polysaccharide PPSV23 01/25/2016 Td (adult),2 Lf Tetanus Toxo id, PF, Adsorbed 10/13/2022 Typhoid, ViCPs 11/11/2012 Zoster live 08/01/2015 Zoster recombinant 09/22/2019,06/14/2019 Family History Medical History Relation Comments Diabetes Father Parkinson's disease Father Cancer Mother ovarian Relation Status Comments Father Mother Social History Tobacco Use Types Packs/Day Years Used Date Smoking Tobacco: Never Smokeless Tobacco: Never Tobacco Cessation:Counseling Given: Not Answered Alcohol Use Standard Drinks/Week Comments Not Currently [...] Sign Reading Time Taken Comments Blood Pressure 124/76 11/16/2024 8:53 AM EDT Pulse 58 11/16/2024 8:53 AM EDT Temperature 36.5 C (97.7 F) 11/02/2023 11:29 AM EDT Respiratory Rate 17 11/02/2023 11:2 9 AM EDT Oxygen Saturation 98% 11/16/2024 8:53 AM EDT Inhaled Oxygen Concentration - - Weight 86.1 kg (189 lb 12.8 oz) 11/16/2024 8:53 AM EDT Height 180.3 cm (5' 11 ) 11/16/2024 8:53 AM EDT Body Mass Index 26.47 11/16/2024 8:53 AM EDT Plan of Treatment Upcoming Encounters Date Type Department Care Team (Late st Contact Info) Description 11/17/2025 8:40 AM EDT Office Visit [facility] [address] [place] [place] [address] [place] [address] oCty Ca MD [address] [place] [id number] [email or web address] Health Maintenance Due Date Last Done Comments CREATININE LEVEL 1949 HEMOGLOBIN A1C 1949 POTASSIUM LEVEL 1949 TSH LEVEL 1949 DEPRESSION SCREENING 1961 HEPATITIS C SCREENING 1967 COLOGUARD 1994 COLONOSCOPY 1994 COLORECTAL CANCER SCREENING 1994 FIT TEST 1994 FOBT 1994 SIGMOIDOSCOPY 1994 VIRTUAL COLONOSCOPY 1994 DIABETIC EYE EXAM 11/14/2022 RSV VACCINE (1 - 1-dose 75+ series) 2024 INFLUENZA VACCINE (#1) 2025 , 06/06/2022, 07/02/2021, Additional history exists COVID-19 VACCINE ( season) 2025 05/14/2023, 05/28/2022, 06/17/2021, Additional history exists BLOOD PRESSURE 05/19/2025 11/16/2024 Adult Td,Tdap Booster 10/13/2032 10/13/2022 HEPATITIS A VACCINES Aged Out 11/11/2012 No long er eligible based on patient's age to complete this topic PNEUMOCOCCAL VACCINES (50+ years) Completed 07/28/2017, 01/25/2016 ZOSTER VACCINES Completed 09/22/2019, 05/25, 08/01/2015 SMOKING STATUS SCREENING (Once After 26 Yrs) Completed 11/16/2024 HIB VACCINES Aged Out No longer eligi ble based on patient's age to complete this topic MENINGOCOCCAL VACCINES (ACWY) Aged Out No longer eligible based on patient's age to complete this topic MENINGOCOCCAL VACCINES (B) Aged Out N o longer eligible based on patient's age to complete this topic Medical Devices Not on file Insurance MEDICARE PART A & B [employer] MEDICARE SUPPLEMENT MEDICARE PART A & B [employer] [place] [id number] MEDICARE PART A & B [facility] EXTENSION MEDICARE SUPPLEMENT MEDICARE PART A & B [employer] EXTENSION MEDICARE SUPPLEMENT MEDICARE PART A & B Member Subscriber Plan / Payer (Ef fective 2014-Present) Name:Abner Solorio Member ID:[id number] Relation to Subscriber:Self Name:Abner Solorio Subscriber ID:[id number] Payer ID:[id number] Group ID:Not on file Type:Medicare Address: [facility] 4meee [facility] [address] [place] [address] [facility] EXTENSION MEDICARE SUPPLEMENT MEDICARE PART A & B [facility] EXTENSION MEDICARE SUPPLEMENT Care Teams Rolls Mill Operator Relationship Specialty Start Date End Date Soraya Escudero MD [address] [place] [address] PCP - General Internal Medicine 11/14/22 Keith Contreras MD [address] [address] Automobile Drivers Cardiology 11/14/22 Additional Source Comments The information contained in this document represents components of the legal health record. It is not the complete legal health record.[facility]
--- OUTSIDE RECORDS SUMMARY | 2025-05-31 07:04 | XMS_ITS | Patient Health Record ---
Author Organization [facility] Address [address] [place] [address] Care Team Providers Care Cloth Picker Name Role Phone Po Soraya SCHMIDT Primary Care Provider Marcus Anthony [phone] Reason For Referral No Information Medications Medication [...] Problem Status W/U Status Risk Notes Problem 797595929 Encounter for screening for malignant neoplasm of colon (Z12.11) Active confirmed Problem Screening for malignant neoplasm of rectum (149556014) Encounter for screening for malignant neoplasm of rectum (Z12.12) Active confirmed Problem 04698823 Preprocedural examination (Z01.818) Active confirmed Problem 820757828 Long-term use of aspirin therapy (Z79.82) Active confirmed Plan Of Treatment Future Test Test Name Order Date COLONOSCOPY 05/29/2016 Insurance Providers Payer Name Payer Address Payer Phone Subscriber Number Group Number Insured Name Patient Relationship to Insured Coverage Start Date Coverage End Date MEDICARE OF [place] [address] [place] [address] [id number] VIVIAN CARUSO Self - patient is the insured [facility] INDEMNITY [address] [place] [address] [id number] VIVIAN CARUSO Self - patient is the insured Medical (General) History Medical History History ICD Code NIDDM Hypertension Denies [place],CVA,Lung disease,renal disease Hperlipidemia Negative colonoscopy [place] 2004 Dr. Wilkerson--diverticulosis, internal hemorrhoids Sleep apnea--uses CPAP Surgical History Surgery Date(Month/Year) Right shoulder Right inguinal hernia Right eye detached retina/retinal occlus ion Facial surgery--left zygomatic arch
--- OUTSIDE RECORDS SUMMARY | 2025-05-31 07:04 | XMS_ITS | Data Portability ---
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 Lab None record ed. Referral None record ed. Procedures None record ed. Surgeries None record ed. Imaging None record ed. Medication Orders None record ed. Patient TargetsNo targets recorded. Patient InstructionsNo instructions [...] Organization Details Recorded Time Deviated nasal septum 748014117 Active 2014 Nasal septal deviation ; Note: Date Diagnosed : 10/26/2014 10:29 AM (470) Not Available [facility] 4 03:28:45 Impacted cerumen of bilateral ears 27239784726 43495 Active 2017 Impacted cerumen, bilateral ; Note: Date Diagnosed : 10/23/2017 1:33 PM (H61.23) Not Available [facility] 4 03:28:45 Obstructi ve sleep apnea syndrome 35288357 Active 2020 LALA; Note: Date Diagnosed : 10/26/2014 10:29 AM (327.23) ; Start Date : 5 Obstruc tive sleep apnea (adult) (pediatri c); Note: Date Diagnosed : 05/21/2021 3:15 PM (G47.33) Not Available [facility] 4 03:28:45 Abnormal auditory perceptio n 78624901 Active 2024 BRENDAN YOUNGBLOOD MD [address] [facility],[place] [address], [place], [address] , [place] [facility] 5 08:57:03 Abnormal auditory perceptio n 99758024 Active 2024 BRENDAN YOUNGBLOOD MD [address] [facility],[place] [address], [place], [address] , [place] - [facility] 5 08:57:09 Sensorine ural hearing loss of bilateral ears 414844991 Active 2024 VIRGIL COPELAND [address],[place] [address], [place], [address] , [place] - [facility] 09:30:44 Problem Notes None recorded. Procedures Surgical History Date Name Laterality Status Provider Name and Address Organization Details Recorded Time 10/19/19 25 Comp Audio with Tymps - 34356 & 21315 completed VIRGIL COPELAND [address] [facility] [place] [facility], [place], [address], [place] - [facility] 10/19/2024 09:30:38 repair of retina for retinal detachment completed Lyric Baker [place] - [facility] 10/19/2024 08:40:33 hernia repair completed Lyric Baker [place] [facility] 10/19/2024 08:40:43 procedure on shoulder completed Lyric Baker [place] [facility] 10/19/2024 08:40:48 cardioversion completed Lyric Baker [place] - [facility] 10/19/2024 08:40:56 Imaging Results None recorded. [...] mg tablet 12/17 completed Medicati on ID: [id number] D uration Value: 90 Brand Name: lisinopr il Send Method: E-Prescr ibed Sub s Allowed: subs OK Medic ationGen ericName : lisinopr il Not Available Not Available Not Available Synthroid 100 mcg tablet TAKE 1 TABLET DAILY active Not Available Not Available No t Available amlodipin e 2.5 mg tablet 10/19 completed Medicati on ID: [id number] B rand Name: amlodipi ne Send Method: [...] mg tablet 12/17 completed Medicati on ID: [id number] Br and Name: lisinopr il Send Method: E-Prescr ibed Sub s Allowed: subs OK Medic ationGen ericName : lisinopr il Not Available Not Available Not Available lisinopri l 40 mg tablet TAKE 1 TABLET DAILY active Not Available Not Available No t Available Baby Aspirin 12/17 completed Medicati on ID: [id number] Br and Name: baby aspirin Send Method: E-Prescr ibed Sub s Allowed: subs OK Medic ationGen ericName : baby aspirin Not Available Not Available Not Available hydrochlo rothiazid e 12.5 mg tablet 12/17 completed Medicati on ID: [id number] Br and Name: hydrochl orothiaz memo Send [...] Details Last Updated DateTime 10/19/2024 180.34 cm 80873.59 g Lyric Baker [place] [facility] 10/19/2024 08:44:04 Social History None recorded. Functional Status None recorded. Mental Status None recorded. Family History Nothing Reported. Medical History Condition Response High Cholesterol Y Thyroid Problems Y Sleep Disorder Y Hypertension Y Past Encounters Encounter ID Performer Location Encounter Start Date Encounter Closed Date Diagnosis/Indication Diagnosis SNOMED-CT Code Diagnosis ICD10 Code Diagnosis IMO Codes Diagnosis Note [id number] BRENDAN YOUNGBLOOD MD [facility] [address] [address] 10/19/2024 08:35:22 10/19/2024 09:54:35 Impacted cerumen of bilateral ears 7112644494 065698 H61.23 Suggested 3 drops distilled vinegar in each ear twice weekly to prevent the buildup of cerumen Obstructiv e sleep apnea syndrome 61326839 G47.33 Patient appears compliant with CPAP and benefiting from the device. 1 year follow-up with [place] for CPAP compliance Deviated nasal septum 12 8955754 J34.2 asymptomat ic Abnormal a uditory perception 53444352 H93.293 audio reviewed there is mild sensorineu [...] Sensorineu ral hearing loss of bilateral ears 965596588 H90.3 6-month follow-up with [place] for audiometri c testing. [id number] VIRGIL COPELAND [facility] [address] [address] 10/19/2024 09:29:51 10/20/2024 07:42:46 Sensorineural hearing loss of bilateral ears 141206817 H90.3 Audiologic al evaluation results: Right ear: [...] Member ID Guarantor Name 10/20/2024 2 [facility] [id number] Abner Solorio [id number] Abner Solorio Sr 10/19/2024 1 MEDIC[place] [employer] Abner Solorio Sr [id number] Abner Solorio Sr Notes Date Note Type Note Provider Name and Address Organization Details Recorded Time 10/19/2024 text/html ROS as noted in the HPI Using CPAP at least 7 hours per night. Feeling resting and notes difficulty if not usingNo recent audioNo tinnitus or vertigoWife notes he has some HL especially in background situations. Denies any difficulty with nasal obstruction despite known septal deviation BRENDAN HARPER MD [address] [place] [address], [place], [address], [facility] - [facility] 10/19/2024 09:52:23
--- OUTSIDE RECORDS SUMMARY | 2025-05-31 07:04 | XMS_ITS | Clinical Summary ---
Author Organization [facility] Address [address] [place] [address] Care Team Providers Care Vocational Nurse Name Role Phone Pcp, No Primary Care [...] Health Maintenance Due Date Last Done Comments Advance Care Planning 1950 Hepatitis C Virus Screening 1950 DTaP/Tdap/Td Vaccines (1 - Tdap) 1968 Colonoscopy 1994 Pneumococcal Vaccines 50+ (1 of 1 - PCV) 1999 Zoster (Shingles) Vaccine (1 of 2) 1999 RSV Vaccine 60 years and old er and Patients (1 - 1-dose 75+ series) 2024 Influenza Vaccine 03/24/2025 COVID-19 Vaccine ( - 2023-2 5 season) 2025 Hepatitis B Vaccines Aged Out No long er eligible based on patient's age to complete this topic Insurance MEDICARE PART A & B [facility] Care Teams Vocational Nurse Relationship Specialty Start Date End Date Pcp, No [address] [place] [address] PCP - General 01/09/21
[2025-05-31 07:12] LABS: MANUAL DIFF FLAG NO
[2025-05-31 07:46] LABS: Hematocrit 40.5 % (42.0-52.0); Hemoglobin 14.4 g/dl (14.0-18.0); Imm Gran Abs Auto 0.01 X10*3/uL (0.00-0.03); Imm Gran Pct Auto 0.1 % (0.0-0.4); Lymphocytes Absolute Auto 2.3 X10*3/uL (1.2-4.9); Mean Corpuscular HGB Conc 35.6 g/dl (31.0-36.0); Mean Corpuscular Hemoglobin 33.3 pg (27.0-33.0); Mean Corpuscular Volume 93.5 fL (80.0-98.0); NRBC Abs Auto 0.000 X10*3/uL (0.0-0.012); NRBC Pct Auto 0.0 /100WBC (0.0-0.2); Platelet Count 146 X10*3/uL (160-400); Red Blood Count 4.33 X10*6/uL (4.60-5.80); White Blood Count 6.8 X10*3/uL (4.8-10.8)
[2025-05-31 07:53] LABS: Hemoglobin A1C 149.7856 umol/L
[2025-05-31 08:30] LABS: Alanine Aminotransferase 22 U/L (0-40); Albumin Level 4.3 g/dL (3.5-5.0); Alkaline Phosphatase 43 U/L (39-117); Anion Gap 11 (12-20); Aspartate Amino Transferase 27 U/L (5-37); Blood Urea Nitrogen 16 mg/dL (9-16); Calcium 9.1 mg/dL (8.4-10.2); Carbon Dioxide 24 mmol/L (22-29); Chloride 106 mmol/L (96-108); Cholesterol 111 mg/dL (<200); Estimated Glomerular Filt Rate > 60; HDL Cholesterol 41 mg/dL (>40); Potassium 4.2 mmol/L (3.3-5.1); Sodium 137 mmol/L (135-145); Total Protein 6.5 g/dL (6.5-8.0); Triglycerides 72 mg/dL (<150)
[2025-05-31 08:34] LABS: Free T4 (Free Thyroxine) 1.12 ng/dL (0.71-1.85); Thyroid Stimulating Hormone 4.64 uIU/mL (0.32-4.0)
== END 2025-05-31 07:01 | disposition home or self-care (01) ==
LOC: HO.LAB 07:00
PROVIDERS: PCP Internal Medicine; Visit Provider Internal Medicine
DX: E11.65 Type 2 diabetes mellitus with hyperglycemia (principal); E03.9 Hypothyroidism, unspecified; E78.00 Pure hypercholesterolemia, unspecified
CPT/HCPCS: 36415; 80053; 80061; 82570; 83036; 84439; 84443; 85025

== ENCOUNTER 2025-06-06 09:19 | Outpatient (AMB) | payer MEDICARE, OTHER, SELFPAY ==
--- OUTSIDE RECORDS SUMMARY | 2023-05-05 11:35 | XMS_ITS | Encounter Summary ---
Author Organization [facility] Address [address] [place] [phone] Phone Care Team Providers Care Director School Of Nursing Name Role Phone Soraya Escudero MD Primary Care Provider [phone] Keith Contreras MD Unavailable Encounter Details Date Type Department Care Team (Late st Contact Info) Description 05/05/2023 11:35 AM EDT Hospital Encounter [facility] [address] [place] [id number] Philly Lira FNP [address] [place] [phone] [email or web address] Social History Tobacco Use Types Packs/Day Years [...] AM EDT Office Visit [facility] [address] [place] [address] Coty Ca MD [address] [place] [phone] [email or web address] documented as of this encounter Procedures Procedure [...] originally createdby Winston [email or web address]. 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 ENGINEER IMG XR LOWER EXTREMITY Araceli l Result documented in this encounter Visit Diagnoses Not on filedocumented in this encounter Care Teams Director School Of Nursing Relationship Specialty Start Date End Date Po, Soraya Ward MD [address] [place] [address] [address] [place] [address] PCP - General Internal Medicine 11/14/22 Keith Contreras MD [address] [place] [phone] Mangle Press Catcher Cardiology 11/14/22 documented as of this encounter Additional Source Comments The information contained in this document represents components of the legal health record. It is not the complete legal health record.[facility]
--- NOTE | 2025-06-06 09:28 | A.OFFPC_ITS ---
Vital Signs 06/06/25 09:29 06/06/25 09:53 Height 5 ft 11 in Weight 188 lb BMI 26.2 BP 140/78 H 142/60 H Blood Pressure Location Lt brachial Lt radial Position Sitting Sitting Pulse 57 Pulse Source Pulse Oximeter Temp 97.0 F Temp Source Temporal Artery Scan Pulse Oximetry (%) 99 Oxygen Delivery Method Room Air Intake Visit Reasons: follow up afib Allergies No Known Allergies (No Known Allergies*) Allergy (Verified 06/06/25 09:32) Medication List - Last Reconciled 06/06/25 by Soraya Escudero MD amlodipine 10 mg PO .PM apixaban (Eliquis) 5 mg PO BID atorvastatin 40 mg PO DAILY blood sugar diagnostic (FreeStyle Lite Strips) As directed check the BID cyanocobalamin (vitamin B-12) 1,000 mcg PO DAILY flecainide 50 mg PO Q12H levothyroxine 125 mcg PO DAILY lisinopril 40 mg PO DAILY metformin 1,000 mg (2 x 500 mg) PO BIDWMEAL metoprolol succinate ER 50 mg PO DAILY Tobacco use date assessed: 06/06/25 Fall risk assessment: 1 Fall in past year Last assessed Fall Risk: 06/06/25 Dental Screening Dental Screen Date: 06/06/25 Did you have a dental visit in the last 12 months?: Yes Did you have a dental problem in the last 6 months where you did not have access to dental care?: No Was dental information given to patient?: Patient has dentist [facility] Medical History Nonrheumatic aortic (valve) stenosis COVID-19 virus infection Impacted cerumen of both ears Medicare annual wellness visit, initial Encounter for monitoring anti-arrhythmic therapy 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 Type 2 diabetes mellitus with unspecified complications History of cardioversion (~02/2019) Paroxysmal atrial flutter Retinal artery occlusion Thrombocytopenia Diabetic nephropathy Hypothyroid Obstructive sleep apnea Hypercholesterolemia Hypertension Type 2 diabetes mellitus with hyperglycemia Surgical History S/P Mohs surgery for basal cell carcinoma History of facial surgery History of shoulder surgery History of hernia surgery No pertinent past surgical history Family History Brother Cardiomyopathy Social History Housing: House Alcohol intake: current Alcohol intake frequency: a few times a month Comment: 2-3 x a week 2 elizabeth Patient Tobacco Use Status: Never used Tobacco e-Cigarette/Vaping Use: Never Used Second Hand Smoke Exposure: No service: No Current occupational status: retired Cognitive needs: No Hearing needs: No Vision needs: Yes (Glasses) Questionnaire PHQ-9 Over the last 2 weeks, how often have you been bothered by any of the following problems? 1. Little interest or pleasure in doing things: not at all 2. Feeling down, depressed, or hopeless: not at all 3. Trouble falling or staying asleep, or sleeping too much: not at all 4. Feeling tired or having little energy: not at all 5. Poor appetite or overeating: not at all 6. Feeling bad about yourself - or that you are a failure or have let yourself or your family down: not at all 7. Trouble concentrating on things, such as reading the newspaper or watching television: not at all 8. Moving or speaking so slowly that other people could have noticed. Or the opposite - being so fidgety or restless that you have been moving around a lot m ore than usual: not at all 9. Thoughts that you would be better off or of hurting yourself in some way: not at all Total score: 0 Source: Developed by Drs. Marcus Anand, Sapna Mishra, Lawrence Hurley and colleagues, with an educational shelly from [employer]. Thrive Questionnaire Date Thrive assessed: 11/30/24 I am a: Patient What is your living situation today?: I have a steady place to live Within the past 12 months, did the food you bought not last and you didn't have the money to get more?: Never true Within the past 12 months, did you worry whether your food would run out before you got money to buy more?: Never true Do you have trouble paying for medicines?: No Do you have trouble getting transportation to medical appointments?: No Do you have trouble paying your heating and electricity bill?: No Do you have trouble taking care of your child, family member or friend?: No Do you have trouble with day-to-day activities such as bathing, preparing meals, shopping, managing finances, etc.?: No Are you currently unemployed and looking for a job?: No Are you interested in more education?: No Please select the resources that you would like help with: None Currently or been in a relationship where the following occur: No concerns reported THRIVE Score: 0 AUDIT C Alcohol Use Questionnaire (AUDIT-C) 1. How often do you have a drink containing alcohol?: 2-3 times a week 2. How many drinks containing alcohol do you have on a typical day when you are drinking?: 1 or 2 3. How often do you have six or more drinks on one occasion?: Never Total Score: 3 DAINA-7 AMB Questionnaire DAINA-7 Date DAINA - 7 assessed: 11/30/24 Feeling nervous, anxious, or on edge: 0 = Not at all Not being able to stop or control worryin = Not at all Worrying too much about different things: 0 = Not at all Trouble relaxin = Not at all Being so restless that it is hard to sit still: 0 = Not at all Becoming easily annoyed or irritable: 0 = Not at all Feeling afraid as if something awful might happen: 0 = Not at all Total DAINA-7 score (0-4 normal; 5-9 mild; 10-14 moderate; 15-21 severe): 0 Source: Developed by Drs. Marcus Anand, Sapna Mishra, Lawrence Hurley and colleagues, with an educational shelly from [employer]. Physical exam (Primary Care) Vital Signs: Last Vital Signs Temp 97.0 F 06/06/25 09:29 Pulse 57 06/06/25 09:29 BP 142/60 H 06/06/25 09:53 Pulse Ox 99 06/06/25 09:29 Oxygen Delivery Method Room Air 06/06/25 09:29 BMI result Body Mass Index 26.2 Tobacco/Smoking Status: Tobacco use Status Tobacco use date assessed 06/06/25 06/06/25 09:32 Patient Tobacco Use Status Never used Tobacco 06/06/25 09:28 e-Cigarette/Vaping Use Never Used 06/06/25 09:28 PHQ-9: PHQ-9 Score PHQ-9: Total score 0 06/06/25 09:51 Thrive Assessment: Date of Thrive Assessment Date Thrive assessed 11/30/24 06/06/25 09:28 Currently or been in a relationship where the following occur: No concerns reported Const General: alert; No acute distress Eyes Conjunctivae: conjunctivae normal Resp Auscultation: clear to auscultation bilaterally Cardio Rate: regular rate Rhythm: regular rhythm GI Inspection: Yes normal to inspection Extrem General: Yes normal to inspection and No edema Coding Level of Care Code Est Pt Level 4 (20821) Complex EM visit Add On G2211 Diagnoses Paroxysmal atrial flutter I48.92 Essential hypertension I10 Hypercholesterolemia E78.00 Type 2 diabetes mellitus with hyperglycemia, without long-term current use of insulin E11.65 Diabetes mellitus watermaster insulin use: without watermaster use Acquired hypothyroidism E03.9 Hypothyroidism type: acquired Obstructive sleep apnea G47.33 Assessment & Plan Assessment & Plan (1) Paroxysmal atrial flutter: Code(s): I48.92 - Unspecified atrial flutter Category: Medical Plan: Continue with anticoagulation with Eliquis May 2025 last blood work (2) Essential hypertension: Code(s): I10 - Essential (primary) hypertension Category: Medical Plan: Continue with blood pressure medication. Decrease salt intake and exercise on amlodipine 10 mg once a day lisinopril 40 mg once a day metoprolol 50 mg once a day (3) Hypercholesterolemia: Code(s): E78.00 - Pure hypercholesterolemia, unspecified Category: Medical Plan: Avoid fried foods, chicken skin, eggs, butter margarine, pastries and meat. Be it pork or beef they have a lot of cholesterol on atorvastatin 40 mg once a day (4) Type 2 diabetes mellitus with hyperglycemia: Comment: Dr. Johnson Code(s): E11.65 - Type 2 diabetes mellitus with hyperglycemia Category: Medical Qualifiers: Diabetes mellitus watermaster insulin use: without watermaster use Qualified Code(s): E11.65 - Type 2 diabetes mellitus with hyperglycemia Plan: Decrease the amount of carbohydrate intake, pasta, bread, rice and potatoes are all sugar and that is aside from all the sweet stuff, remember that fruits are good but they are Sweet also. Hemoglobin A1c goal of less than 7.0 patient is on metformin a 1000 mg twice a day (5) Hypothyroid: Code(s): E03.9 - Hypothyroidism, unspecified Category: Medical Qualifiers: Hypothyroidism type: acquired Qualified Code(s): E03.9 - Hypothyroidism, unspecified Plan: Continue with thyroid medication but will do some adjustment to get the TSH in the normal range. (6) Obstructive sleep apnea: Code(s): G47.33 - Obstructive sleep apnea (adult) (pediatric) Category: Medical Plan History of Present Illness The patient is a 74-year-old male presenting for a follow-up visit. The patient has a history of diabetes mellitus, which is currently well-managed with a hemoglobin A1c of 5.9, indicating good glycemic control. He is on metformin 1000 mg twice a day to maintain his blood sugar levels. The patient also has hypercholesterolemia, with an LDL level of 56, which is we ll below the target of less than 70. He is currently on atorvastatin 40 mg once a day for cholesterol management. The patient has a history of obstructive sleep apnea, hypothyroidism, and atrial fibrillation. His thyroid levels are slightly elevated, with a TSH of 4.64, and he is on 112 mcg of thyroid medication, which is planned to be increased to 125 mcg to achieve normal TSH levels. For atrial fibrillation, he is on anticoagulation therapy with Eliquis and has undergone cardioversion in the past. The patient is concerned about moderate aortic valve stenosis, with an aortic valve measurement of 1.04 cm, which is being monitored regularly. His echocardiogram showed an ejection fraction of 59%, and he is under cardiology care for this condition. The patient has a history of hypertension, managed with amlodipine, lisinopril, and metoprolol. His blood pressure was noted to be slightly elevated at 142/60 during the visit. The patient has thrombocytopenia, with a platelet count of 146, which is slightly below the normal range, and this has been a consistent finding in previous tests. He also has proteinuria, which is being monitored. Health Maintenance - Colon cancer screening overdue since 2016 - Flu vaccination recommended in May - COVID vaccination received - Shingles vaccination completed - Pneumonia vaccination completed Social History - Exercise: Engages in regular hiking activities, including climbing mountains. Review of Systems - Cardiovascular: Denies chest pain or dyspnea on exertion. Physical Exam - Cardiovascular: Systolic murmur noted, regular rate and rhythm Results - Echocardiogram: Ejection fraction of 59%, aortic valve measurement of 1.04 cm - Blood Work (May 31, 2025): Normal blood count, slight thrombocytopenia, normal white blood cell count, normal electrolytes, good renal function, blood sugar 124, hemoglobin A1c 5.9, normal liver function, LDL 56, TSH 4.64, presence of proteinuria Plan Patient was informed and verbally consented to the use of an ambient scribe for clinic note documentation during this visit. 1. Diabetes Mellitus The patient's diabetes mellitus is well-controlled with a hemoglobin A1c of 5.9. He is currently on metformin 1000 mg twice a day. The goal is to maintain the hemoglobin A1c below 7.0. 2. Hypercholesterolemia The patient's hypercholesterolemia is managed with atorvastatin 40 mg once a day, achieving an LDL level of 56, which is below the target of less than 70. 3. Hypothyroidism The patient's hypothyroidism is being managed with 112 mcg of thyroid medication daily. Due to a TSH level of 4.64, the dosage will be increased to 125 mcg to achieve normal TSH levels. 4. Atrial Fibrillation The patient is on anticoagulation therapy with Eliquis and has undergone cardioversion in the past. Continued monitoring and management under cardiology care are planned. 5. Moderate Aortic Valve Stenosis The patient has moderate aortic valve stenosis with an aortic valve measurement of 1.04 cm. Regular monitoring is planned, and he is under cardiology care. 6. Hypertension The patient's hypertension is managed with amlodipine, lisinopril, and met oprolol. His blood pressure was noted to be slightly elevated at 142/60, and adjustments may be considered if necessary. 7. Thrombocytopenia The patient has slight thrombocytopenia with a platelet count of 146. This has been a consistent finding, and monitoring will continue. 8. Proteinuria The patient has proteinuria, which is being monitored as part of his ongoing care. Discussion Notes During the visit, we discussed the management of the patient's diabetes, hypercholesterolemia, and hypothyroidism. We agreed to increase the thyroid medication dosage to 125 mcg to achieve normal TSH levels. The patient is advised to continue with his current medications for diabetes and cholesterol management. We also reviewed the echocardiogram results and discussed the importance of monitoring the moderate aortic valve stenosis. The patient is encouraged to maintain regular follow-ups with cardiology for his atrial fibrillation and aortic stenosis. We also discussed the need for a flu vaccination in May and the importance of regular exercise and a healthy diet. Patient Instructions - Continue taking metformin 1000 mg twice a day for diabetes management. - Continue atorvastatin 40 mg once a day for cholesterol management. - Increase thyroid medication to 125 mcg once a day as discussed. - Maintain regular follow-ups with cardiology for atrial fibrillation and aortic stenosis. - Get a flu vaccination in May. - Engage in regular physical activity and maintain a healthy diet. Orders: Orders Thyroid Stimulating Hormone 2 Months E03.9 - Hypothyroidism, unspecified Free T4 (Free Thyroxine) 2 Months E03.9 - Hypothyroidism, unspecified Medications: New levothyroxine 125 mcg PO DAILY 90 caps 1RF E03.9 - Hypothyroidism, unspecified Refilled blood sugar diagnostic (FreeStyle Lite Strips) As directed check the BID 200 ea 3RF E11.65 - Type 2 diabetes mellitus with hyperglycemia metoprolol succinate ER 50 mg PO DAILY 90 tabs 3RF E03.9 - Hypothyroidism, unspecified Discontinued levothyroxine Discontinued Reason: Doctor's Order 112 mcg PO DAILY 90 tabs 3RF E03.9 - Hypothyroidism, unspecified
[2025-06-06 09:29] VITALS: BP 140/78; PULSE 57; TEMP 36.1; O2SAT 99; BMI 26.2
[2025-06-06 09:53] VITALS: BP 142/60
--- OUTSIDE RECORDS SUMMARY | 2025-06-06 10:10 | XMS_ITS | Data Portability ---
Author Organization [place] [facility], Allergy Address [address] [place] [id number] Care Team Providers Care Lathe Set Up Operator Name Role Phone CHRIS CAMACHO Primary [...] Organization Details Recorded Time Deviated nasal septum 885572307 Active 2014 Nasal septal deviation ; Note: Date Diagnosed : 10/26/2014 10:29 AM (470) Not Available [facility] 4 03:28:45 Impacted cerumen of bilateral ears 70994662682 38875 Active 2017 Impacted cerumen, bilateral ; Note: Date Diagnosed : 10/23/2017 1:33 PM (H61.23) Not Available [facility] 4 03:28:45 Obstructi ve sleep apnea syndrome 85638060 Active 2020 LALA; Note: Date Diagnosed : 10/26/2014 10:29 AM (327.23) ; Start Date : 5 Obstruc tive sleep apnea (adult) (pediatri c); Note: Date Diagnosed : 05/21/2021 3:15 PM (G47.33) Not Available [facility] 4 03:28:45 Abnormal auditory perceptio n 20592981 Active 2024 BRENDAN YOUNGBLOOD MD [address] [facility],[place] [address], [place], [address] , [place] [facility] 5 08:57:03 Abnormal auditory perceptio n 25780292 Active 2024 BRENDAN YOUNGBLOOD MD [address] [facility],[place] [address], [facility] [place], [address] , [place] - [facility] 5 08:57:09 Sensorine ural hearing loss of bilateral ears 464305389 Active 2024 VIRGIL COPELAND [address] [facility] [address],[place] [address], [place], [address] , [place] - [facility] 09:30:44 Problem Notes None recorded. Procedures Surgical History Date Name Laterality Status Provider Name and Address Organization Details Recorded Time 10/19/19 25 Comp Audio with Tymps - 53232 & 89010 completed VIRGIL COPELAND [address] [facility] [address],[facility], [place], [address], [place] [facility] 10/19/2024 09:30:38 repair of retina for retinal detachment completed Lyric Baker [place] [facility] [place] 10/19/2024 08:40:33 hernia repair completed Lyric Baker [place] [facility] 10/19/2024 08:40:43 procedure on shoulder completed Lyric Baker [place] [facility] 10/19/2024 08:40:48 cardioversion completed Lyric Baker [place] [facility] 10/19/2024 08:40:56 Imaging Results None recorded. [...] mg tablet 12/17 completed Medicati on ID: [id number] D uration Value: 90 Brand Name: lisinopr il Send Method: E-Prescr ibed Sub s Allowed: subs OK Medic ationGen ericName : lisinopr il Not Available Not Available Not Available Synthroid 100 mcg tablet TAKE 1 TABLET DAILY active Not Available Not Available No t Available amlodipin e 2.5 mg tablet 10/19 completed Medicati on ID: [id number] B rand Name: amlodipi ne Send Method: [...] mg tablet 12/17 completed Medicati on ID: [id number] Br and Name: lisinopr il Send Method: E-Prescr ibed Sub s Allowed: subs OK Medic ationGen ericName : lisinopr il Not Available Not Available Not Available lisinopri l 40 mg tablet TAKE 1 TABLET DAILY active Not Available Not Available No t Available Baby Aspirin 12/17 completed Medicati on ID: [id number] Br and Name: baby aspirin Send Method: E-Prescr ibed Sub s Allowed: subs OK Medic ationGen ericName : baby aspirin Not Available Not Available Not Available hydrochlo rothiazid e 12.5 mg tablet 12/17 completed Medicati on ID: [id number] Br and Name: hydrochl orothiaz memo Send [...] Details Last Updated DateTime 10/19/2024 180.34 cm 95655.59 g Lyric Baker [place] [facility] 10/19/2024 08:44:04 Social History None recorded. Functional Status None recorded. Mental Status None recorded. Family History Nothing Reported. Medical History Condition Response Thyroid Problems Y Hypertension Y High Cholesterol Y Sleep Disorder Y Past Encounters Encounter ID Performer Location Encounter Start Date Encounter Closed Date Diagnosis/Indication Diagnosis SNOMED-CT Code Diagnosis ICD10 Code Diagnosis IMO Codes Diagnosis Note [id number] BRENDAN YOUNGBLOOD MD [facility] [address] [address] 10/19/2024 08:35:22 10/19/2024 09:54:35 Impacted cerumen of bilateral ears [id number] 595923 H61.23 Suggested 3 drops distilled vinegar in each ear twice weekly to prevent the buildup of cerumen Obstructiv e sleep apnea syndrome 01307949 G47.33 Patient appears compliant with CPAP and benefiting from the device. 1 year follow-up with in for CPAP compliance Deviated nasal septum 12 4440554 J34.2 asymptomat ic Abnormal a uditory perception 74287105 H93.293 audio reviewed there is mild sensorineu [...] Sensorineu ral hearing loss of bilateral ears 587276478 H90.3 6-month follow-up with PA for audiometri c testing. [id number] VIRGIL COPELAND [facility] [address] [phone] 10/19/2024 09:29:51 10/20/2024 07:42:46 Sensorineural hearing loss of bilateral ears 033580874 H90.3 Audiologic al evaluation results: Right ear: [...] Doyle Member ID Guarantor Name 10/20/2024 2 [facility] INDEMNITY PLAN (INDEMNITY) [id number] Abner Solorio [id number] Abner Solorio Sr 10/19/2024 1 MEDICARE B-DC: [employer] Abner Solorio Sr [id number] Abner Solorio Sr Notes Date Note [...] despite known septal deviation BRENDAN HARPER MD [address] [place] [address], [place], [address], [place] [facility] 10/19/2024 09:52:23
--- OUTSIDE RECORDS SUMMARY | 2025-06-06 10:10 | XMS_ITS | Clinical Summary ---
Author Organization [facility] Address [address] [address] Phone Care Team Providers Care Automobile Spring Repairer Name Role Phone Soraya Escudero MD Primary Care Provider [phone] Keith Contreras MD Unavailable [phone] Allergies No known active allergies Medications ELIQUIS [...] call for results. BP under reasonable control. 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 Clinically euthyroid. Encounters Date Type Department Care Team Description 03/17/2025 Telephone [facility] [address] [place] [address] Cherie Marin MA Eye Exam from Last [...] 8:40 AM EDT Office Visit [facility] [address] [place] [address] [place] [address] Coty Ca MD [address] [place] [id number] [email or web address] Maintenance Due Date Last Done Comments [...] file Insurance MEDICARE PART A & B [employer] MEDICARE SUPPLEMENT MEDICARE PART A & B [employer] [place] [phone] MEDICARE PART A & B [facility] [employer] MEDICARE SUPPLEMENT MEDICARE PART A & B [email or web address] MEDICARE SUPPLEMENT MEDICARE PART A & B [facility] MEDIC[facility] SUPPLEMENT MEDICARE PART A & B [facility] [employer] MEDICARE SUPPLEMENT Care Teams Automobile Spring Repairer Relationship Specialty Start Date End Date Soraya Escudero MD [address] [place] [phone] PCP - General Internal Medicine 11/14/22 Keith Contreras MD [address] [address] Deli Associate Cardiology 11/14/22 Additional Source Comments The information contained in this document represents components of the legal health record. It is not the complete legal health record.[facility]
--- OUTSIDE RECORDS SUMMARY | 2025-06-06 10:10 | XMS_ITS | Patient Health Record ---
Author Organization [facility] Address [address] [place] [address] Care Team Providers Care Clinical Biochemist Name Role Phone Soraya Escudero MD Primary Care Provider Marcus Anthony [phone] Reason For Referral No Information Medications Medication [...] Problem Status W/U Status Risk Notes Problem Screening for malignant neoplasm of colon (241165855) Encounter for screening for malignant neoplasm of colon (Z12.11) Active confirmed Problem Screening for malignant neoplasm of rectum (837513423) Encounter for screening for malignant neoplasm of rectum (Z12.12) Active confirmed Problem Preprocedural examination (996162576267440) Preprocedural examination (Z01.818) Active confirmed Problem Long-term current use of antiplatelet drug (154429195009930) Long-term use of aspirin therapy (Z79.82) Active confirmed Plan Of Treatment Future Test Test Name Order Date COLONOSCOPY 05/29/2016 Insurance Providers Payer Name Payer Address Payer Phone Subscriber Number Group Number Insured Name Patient Relationship to Insured Coverage Start Date Coverage End Date MEDICARE OF [place] [address] [place] [address] [id number] VIVIAN CARUSO Self - patient is the insured [facility] [employer] [employer] [address] [place] [address] [phone] [id number] VIVIAN CARUSO Self - patient is the insured Medical (General) History Medical History History ICD Code NIDDM Hypertension Denies MA,CVA,Lung disease,renal disease Hperlipidemia Negative colonoscopy in 2004 Dr. Wilkerson--diverticulosis, internal hemorrhoids Sleep apnea--uses CPAP Surgical History Surgery Date(Month/Year) Right shoulder Right inguinal hernia Right eye detached retina/retinal occlus ion Facial surgery--left zygomatic arch
== END 2025-06-06 10:07 | disposition home or self-care (01) ==
LOC: HO.HMCH 09:19
PROVIDERS: PCP Internal Medicine; Visit Provider Internal Medicine
DX: I48.92 Unspecified atrial flutter (principal); I10 Essential (primary) hypertension; E78.00 Pure hypercholesterolemia, unspecified; E11.65 Type 2 diabetes mellitus with hyperglycemia; E03.9 Hypothyroidism, unspecified; G47.33 Obstructive sleep apnea (adult) (pediatric)

== ENCOUNTER → 2025-06-06 09:19 | Outpatient (BNVA) | payer MEDICARE, OTHER, SELFPAY | PROVIDERS: PCP Internal Medicine; Visit Provider Internal Medicine | DX: I10 Essential (primary) hypertension (principal); I48.92 Unspecified atrial flutter; E78.00 Pure hypercholesterolemia, unspecified; E11.65 Type 2 diabetes mellitus with hyperglycemia; E03.9 Hypothyroidism, unspecified; G47.33 Obstructive sleep apnea (adult) (pediatric); I35.0 Nonrheumatic aortic (valve) stenosis; D69.6 Thrombocytopenia, unspecified; R80.9 Proteinuria, unspecified; Z79.84 Long term (current) use of oral hypoglycemic drugs | CPT/HCPCS: 96127; 99212 ==